=== PATIENT | female | born 1955 | race Two or more races ===

== ENCOUNTER 2024-03-17 23:08 | Emergency (ER) | payer OTHER, MEDICAID ==
[~2024-03-17] VITALS: Ht 152.4 cm; Wt 71.8 kg
[2024-03-17 23:32] VITALS: BP 127/84; PULSE 97; RESP 17; O2SAT 97
[2024-03-18] MEDS: HYDROcodone-ACET 5/325MG TAB PO ONE (02:23)
[2024-03-18] MEDS: ONDANSETRON ODT 4 MG TAB PO ONE (02:23)
== END 2024-03-18 03:18 | disposition home or self-care (01) ==
LOC: ER 23:08
DX: S93.401A Sprain of unspecified ligament of right ankle, initial encounter (principal); S40.012A Contusion of left shoulder, initial encounter; S40.011A Contusion of right shoulder, initial encounter; E11.9 Type 2 diabetes mellitus without complications; I10 Essential (primary) hypertension; Z90.49 Acquired absence of other specified parts of digestive tract; Z88.0 Allergy status to penicillin; W18.09XA Striking against other object with subsequent fall, initial encounter; Y93.89 Activity, other specified; Y92.092 Bedroom in other non-institutional residence as the place of occurrence of the external cause; Y99.8 Other external cause status
CPT/HCPCS: 73610; 99283; Q0162

== ENCOUNTER 2024-06-12 16:44 | Emergency (ER) | payer OTHER, MEDICAID ==
[~2024-06-12] VITALS: Ht 152.4 cm; Wt 71.0 kg
[2024-06-12 17:34] LABS: Urine Bacteria None Seen /hpf (None Seen)
--- NOTE | 2024-06-12 17:46 | DVH ---
EXAM: XY CHEST PORTABLE CLINICAL HISTORY: Shortness a breath TECHNIQUE: Single AP view of the chest WID: COMPARISON: None FINDINGS: Lines and tubes: None Chest: The heart size and pulmonary vasculature is within normal limits. No pleural effusion, pneumothorax, or consolidation. The osseous structures are grossly intact. Multilevel thoracic spondylosis IMPRESSION: No acute cardiopulmonary abnormality.
[2024-06-12 17:58] LABS: Urine Blood Negative /uL (Negative); Urine Clarity Clear (Clear); Urine Color Light-Yellow (Yellow); Urine Hyaline Cast FEW /lpf (0 - 2); Urine Mucus FEW (None Seen); Urine Protein, UAD 1+ (Negative); Urine Specific Gravity 1.028 (1.001-1.035); Urine Urobilinogen Normal (Negative); Urine WBC 7 /hpf (0 - 5); Urine pH 6.5 (5.0-9.0)
[2024-06-12 19:51] LABS: Basophils # (auto) 0.1 10 ^3/uL (0-0.2); Basophils % (auto) 0.9 % (0.0-2.0); Eosinophils # (auto) 0.2 10 ^3/uL (0-0.8); Eosinophils % (auto) 2.3 % (0.0-7.0); Hemoglobin 14.4 g/dL (12.2-16.2); Lymphocytes # (auto) 2.1 10 ^3/uL (0.4-5.4); Lymphocytes % (auto) 25.1 % (10.0-50.0); Mean Corpuscular Hgb Conc. 34.3 g/dL (32.0-36.0); Mean Corpuscular Volume 87.4 fL (80.0-100.0); Monocytes # (auto) 0.5 10 ^3/uL (0-1.3); Monocytes % (auto) 5.9 % (0.0-12.0); Neutrophils # (auto) 5.4 10 ^3/uL (1.6-8.6); Neutrophils % (auto) 65.8 % (37.0-80.0); Nucleated Red Blood Cells % 0.2 %; Platelet Count (auto) 381 10^3/uL (140-450); Red Blood Cells 4.81 10^6/uL (4.0-5.20); Red Cell Distribution Width 13.2 % (11.8-14.3); White Blood Cell 8.3 10^3/uL (4.4-10.8)
[2024-06-12 20:04] LABS: Chloride 104 mmol/L (98-107); Potassium 3.8 mmol/L (3.5-5.1); Sodium 141 mmol/L (136-145)
[2024-06-12 20:05] LABS: Anion Gap 8 (5-15); Calcium 10.8 mg/dL (8.7-10.4); Carbon Dioxide 29 mmol/L (20-31)
[2024-06-12 20:10] LABS: BUN/Creatinine Ratio 24.4 (10.0-20.0); Blood Urea Nitrogen 19 mg/dL (9-23); Glucose 129 mg/dL (74-106)
[2024-06-12 21:50] VITALS: BP 191/101; PULSE 99; RESP 18; O2SAT 99
[2024-06-12] MEDS ORDERED: ZOFR4T PO (21:54)
[2024-06-12] MEDS ORDERED: MECL1TAB42 PO (21:54)
[2024-06-12] MEDS ORDERED: NITR-87 PO (21:54)
--- NOTE | 2024-06-12 21:55 | ED.PDOC ---
History of Present Illness HPI Comments This patient is a pleasant but obese 69-year-old female who arrives to the ED today for evaluation of headache with dizziness and congestion that began several hours ago and has continued. Patient denies any recent travel or new food sources. Patient states the symptoms came on relatively quickly and have been unrelenting. Patient denies any nausea or vomiting. Patient was very mildly tachycardic at arrival. Chief Complaint: Dizziness Time Seen by MD: 17:00 Primary Care Provider: UNKNOWN Reviewed Notes: Nurses Notes Allergies: Coded Allergies: Penicillins (Verified Allergy, Unknown, 03/17/24) Information Source: Patient Mode of Arrival: Ambulatory Severity: Mild Timing: Hours Duration: Since onset Prehospital treatment: None Past Medical History PAST MEDICAL HISTORY: DM, HTN Surgical History: Cholecystectomy TABLE TENDER History: No Pertinent TABLE TENDER History Family History Family History: Unknown Social History Smoker: Non-Smoker Alcohol: Denies ETOH Use Drugs: Denies Drug Use Lives In: Home Constitutional: denies: chills, diaphoresis, fatigue, fever, malaise, sweats, weakness, others EENTM: denies: blurred vision, double vision, ear bleeding, ear discharge, ear drainage, ear pain, ear ringing, eye pain, eye redness, hearing loss, mouth pain, mouth swelling, nasal discharge, nose bleeding, nose congestion, nose pain, photophobia, tearing, throat pain, throat swelling, voice changes, others Respiratory: denies: cough, hemoptysis, orthopnea, SOB at rest, shortness of breath, SOB with excertion, stridor, wheezing, others Cardiovascular: denies: chest pain, dizzy spells, diaphoresis, Dyspnea on exertion, edema, irregular heart beat, left arm pain, lightheadedness, palpitations, PND, syncope, others Gastrointestinal: reports: nausea; denies: abdomen distended, abdominal pain, blood streaked bowels, constipated, diarrhea, dysphagia, difficulty swallowing, hematemesis, melena, poor appetite, poor fluid intake, rectal bleeding, rectal pain, vomiting, others Genitourinary: denies: abnormal vagina bleeding, burning, dyspareunia, dysuria, flank pain, frequency, hematuria, incontinence, pain, , vagina d ischarge, urgency, others Neurological: reports: dizziness, headache Musculoskeletal: denies: back pain, gout, joint pain, joint swelling, muscle pain, muscle stiffness, neck pain, others Integumetry: denies: bruises, change in color, change in hair/nails, dryness, laceration, lesions, lumps, rash, wounds, others Allergic/Immunocompromised: denies: Difficulty Healing, Frequent Infections, Hives, Itching, others Hematologic/Lymphatic: denies: anemia, blood clots, easy bleeding, easy bruising, swollen glands, others Endocrine: denies: excessive hunger, excessive sweating, excessive thirst, excessive urination, flushing, intolerance to cold, intolerance to heat, unexplained weight gain, unexplained weight loss, others Psychiatric: denies: anxiety, bipolar disorder, depression, hopeless, panic disorder, schizophrenia, sleepless, suicidal, others Physical Exam General Appearance: Moderate Distress (Patient is a [id number] distress at time of evaluation. Patient does not look toxic.), Normal HEENT: Head (Unremarkable cranial evaluation. No signs of trauma. No skull depressions or deformities.), Normal ENT Inspection, Pharynx Normal, TMs Normal Neck: Full Range of Motion, Non-Tender, Normal, Normal Inspection Respiratory: Chest Non-Tender, Lungs Clear, No Accessory Muscle Use, No Respiratory Distress, Normal Breath Sounds Cardiovascular: No Edema, No JVD, No Murmur, No Gallop, Normal Peripheral Pulses, Regular Rate/Rhythm Breast Exam: Deferred Gastrointestinal: No Organomegaly, Non Tender, No Pulsatile Mass, Normal Bowel Sounds, Soft Genitalia: Deferred Pelvic: Deferred Rectal: Deferred Extremities: No calf tenderness, Normal capillary refill, Normal inspection, Normal range of motion, Non-tender, No pedal edema Neurologic: Alert, layout designer II-XII nml as Tested, No Motor Deficits, Normal Affect, Normal Mood, No Sensory Deficits Cerebellar Function: Normal Reflexes: Normal Skin: Dry, Normal Color, Warm Lymphatic: No Adenopathy Was a procedure done? Was a procedure done?: No Differential Dx Considerations may include: Acute coronary syndrome, electrolyte abnormality, UTI, viral illness, inner ear concerns X-Ray, Labs, Meds, VS Vital Signs Date Time Temp Pulse Resp B/P (MAP) Pulse Ox O2 Delivery O2 Flow Rate FiO2 06/12/24 17:00 97.8 103 19 131/92 (105) 99 06/12/24 16:59 101 Lab Test 06/12/24 19:33 06/12/24 17:02 06/12/24 16:54 Range/Units White Blood Count 8.3 4.4-10.8 10^3/uL Red Blood Count 4.81 4.0-5.20 10^6/uL Hemoglobin 14.4 12.2-16.2 g/dL Hematocrit 42.0 36.0-46.0 % Mean Corpuscular Volume 87.4 80.0-100.0 fL Mean Corpuscular Hemoglobin 30.0 28.0-32.0 pg Mean Corpuscular Hemoglobin Concent 34.3 32.0-36.0 g/dL Red Cell Distribution Width 13.2 11.8-14.3 % Platelet Count 381 140-450 10^3/uL Mean Platelet Volume 7.9 6.9-10.8 fL Neutrophils (%) (Auto) 65.8 37.0-80.0 % Lymphocytes (%) (Auto) 25.1 10.0-50.0 % Monocytes (%) (Auto) 5.9 0.0-12.0 % Eosinophils (%) (Auto) 2.3 0.0-7.0 % Basophils (%) (Auto) 0.9 0.0-2.0 % Neutrophils # (Auto) 5.4 1.6-8.6 10 ^3/uL Lymphocytes # (Auto) 2.1 0.4-5.4 10 ^3/uL Monocytes # (Auto) 0.5 0-1.3 10 ^3/uL Eosinophils # (Auto) 0.2 0-0.8 10 ^3/uL Basophils # (Auto) 0.1 0-0.2 10 ^3/uL Nucleated Red Blood Cells 0.2 % Sodium Level 141 136-145 mmol/L Potassium Level 3.8 3.5-5.1 mmol/L Chloride Level 104 98-107 mmol/L Carbon Dioxide Level 29 20-31 mmol/L Anion Gap 8 5-15 Blood Urea Nitrogen 19 9-23 mg/dL Creatinine 0.78 0.550-1.02 mg/dL Glomerular Filtration Rate Calc 82 >90 mL/min BUN/Creatinine Ratio 24.4 H 10.0-20.0 Serum Glucose 129 H 74-106 mg/dL Calcium Level 10.8 H 8.7-10.4 mg/dL Urine Color Light-yellow Yellow Urine Clarity Clear Clear Urine pH 6.5 5.0-9.0 Urine Specific [place] 1.028 1.001-1.035 Urine Protein 1+ H Negative Urine Ketones 1+ H Negative Urine Blood Negative Negative /uL Urine Nitrite Negative Negative Urine Bilirubin Negative Negative Urine Urobilinogen Normal Negative mg/dL Urine Leukocyte Esterase 2+ Negative /uL Urine RBC 1 0 - 4 /hpf Urine WBC 7 0 - 5 /hpf Urine Squamous Epithelial Cells Few <5 /hpf Urine Bacteria None seen None Seen /hpf Urine Hyaline Casts Few 0 - 2 /lpf Urine Mucus Few None Seen Urine Glucose Normal Normal mg/dL POC Glucose 129 H 70-106 mg/dl X-Ray, Labs, Meds, VS Comment All studies performed in the ED were evaluated by me personally. EKG reveals sinus tachycardia with nonspecific repolarization abnormalities in the lateral leads. Rate of 101 SD interval of 145 and a QT interval of 344. Relatively unremarkable EKG. Serum laboratories were unremarkable for any systemic concerns, but the patient does have a urinary tract infection. Patient received 1st dose of antibiotics prior to discharge. Advised patient utilize antibiotics as directed until completion as well as additional medication as needed. Time of 1ST Reevaluation: 21:52 Reevaluation 1ST: Improved Consultation: PCP Patient Education/Counseling: Diagnosis, Treatment Family Education/Counseling: Diagnosis, Treatment Departure 1 Departure Time of Disposition: 21:53 Impression: Primary Impression: UTI (urinary tract infection) Disposition: HOME / SELF CARE / HOMELESS Condition: Stable Additional Instructions: Advised patient utilize antibiotics as directed until completion as well as additional medication as needed. Patient should practice good hydration and healthy nutrition throughout illness event. e-Prescriptions Meclizine HCl (Meclizine 25) 25 Mg Tab 25 MG PO Q8HP PRN, #10 TAB Prov: PHIL SU PAC 06/12/24 Ondansetron Odt 4MG Tab (ZOFRAN PO) 4 Mg Tb 4 MG PO Q6HP PRN, #10 TAB ODT TAB-DISSOLVE IN MOUTH, THEN SWALLOW Prov: PHIL SU PAC 06/12/24 Nitrofurantoin Monohydrate Mac (Macrobid) 100 Mg Cap 100 MG PO BID for 5 Days, #10 CAP Prov: PHIL SU PAC 06/12/24 Discharged With: Self, Friend Critical Care Note Critical Care Time?: No Stability Stability form required: No Heart Score Heart Score: Heart Score Response (Comments) Value History Slightly Suspicious 0 EKG Repolarization Disturb 1 Age >65 2 Risk Factors 1 or 2 risk factors 1 Troponin N/A 0 Total 4 PHIL SU PAC Jun 12, 2024 21:54
[2024-06-12 23:01] LABS: COVID19 ANTIGEN SOFIA FIA NEGATIVE (NEGATIVE); Rapid Influenza A Negative (Negative); Rapid Influenza B Negative (Negative)
[2024-06-12] MEDS: ONDANSETRON ODT 4 MG TAB PO ONE (23:26)
[2024-06-12] MEDS: MECLIZINE HCL 25 MG TAB PO ONE (23:26)
[2024-06-12] MEDS: NITROFURANTOIN 100 mg CAP PO ONE (23:26)
--- NOTE | 2024-06-13 11:56 | ECG ---
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
== END 2024-06-12 23:26 | disposition home or self-care (01) ==
LOC: ER 16:44
DX: N39.0 Urinary tract infection, site not specified (principal); R42 Dizziness and giddiness; R51.9 Headache, unspecified; E11.9 Type 2 diabetes mellitus without complications; I10 Essential (primary) hypertension; Z88.0 Allergy status to penicillin; Z90.49 Acquired absence of other specified parts of digestive tract; Z20.822 Contact with and (suspected) exposure to COVID-19
CPT/HCPCS: 36415; 71045; 80048; 81001; 82962; 85025; 87426; 87804; 93005; 99285; J8597; Q0162

== ENCOUNTER 2024-07-05 21:11 | Inpatient (IN) | payer OTHER, MEDICAID ==
[~2024-07-05] VITALS: Ht 152.4 cm; Wt 67.6 kg
[~2024-07-05 21:11] MED LIST: MECL1TAB42 PO; NITR-87 PO; ZOFR4T PO
--- NOTE | 2024-07-05 21:29 | ED.PDOC ---
HPI Comments 69-year-old female who came to ER due to chest pains. She has history of hypertension and diabetes. States for the past few hours, she has been experiencing stent, sharp, substernal chest pains, non provoked, 9/10 intensity, nonradiating, worsens with movements and associated with nausea and vomited twice. Denies any prior history of similar chest pains. Chief Complaint: Chest Pain Time Seen by MD: 21:29 Primary Care Provider: UNKNOWN Reviewed Notes: Nurses Notes Allergies: Coded Allergies: Penicillins (Verified Allergy, Unknown, 03/17/24) Home Meds Active Scripts Meclizine HCl (Meclizine 25) 25 Mg Tab, 25 MG PO Q8HP PRN, #10 TAB Prov:PHIL SU PAC 06/12/24 Ondansetron Odt 4MG Tab (ZOFRAN PO) 4 Mg Tb, 4 MG PO Q6HP PRN, #10 TAB ODT TAB-DISSOLVE IN MOUTH, THEN SWALLOW Prov:PHIL SU PAC 06/12/24 Nitrofurantoin Monohydrate Mac (Macrobid) 100 Mg Cap, 100 MG PO BID for 5 Days, #10 CAP Prov:PHIL SU PAC 06/12/24 Information Source: Patient Mode of Arrival: Ambulatory Severity: Moderate Timing: Hours Duration: Since onset Prehospital treatment: None Location: Substernal Radiation: No Radiation Quality: Sharp Onset: At Rest Cardiac Risk Factors: HTN, Diabetes PE Risk Factors: None History of: None Modifying Factors: Nothing Associated Signs and Symptoms: N/V Past Medical History PAST MEDICAL HISTORY: DM, HTN Past Medical History (Other): Chronic pain syndrome Surgical History: Cholecystectomy PATENT ENGINEER History: No Pertinent PATENT ENGINEER History Family History Family History: Reviewed,noncontributory to illness Social History Smoker: Non-Smoker Alcohol: Denies ETOH Use Drugs: Denies Drug Use Lives In: Home Constitutional: denies: chills, diaphoresis, fatigue, fever, malaise, sweats, weakness, others EENTM: denies: blurred vision, double vision, ear bleeding, ear discharge, ear drainage, ear pain, ear ringing, eye pain, eye redness, hearing loss, mouth pain, mouth swelling, nasal discharge, nose bleeding, nose congestion, nose pain, photophobia, tearing, throat pain, throat swelling, voice changes, others Respiratory: denies: cough, hemoptysis, orthopnea, SOB at rest, shortness of breath, SOB with excertion, stridor, wheezing, others Cardiovascular: reports: chest pain; denies: dizzy spells, diaphoresis, Dyspnea on exertion, edema, irregular heart beat, left arm pain, lightheadedness, palpitations, PND, syncope, others Gastrointestinal: reports: nausea, vomiting; denies: abdomen distended, abdominal pain, blood streaked bowels, constipated, diarrhea, dysphagia, diffic ulty swallowing, hematemesis, melena, poor appetite, poor fluid intake, rectal bleeding, rectal pain, others Genitourinary: denies: abnormal vagina bleeding, burning, dyspareunia, dysuria, flank pain, frequency, hematuria, incontinence, pain, , vagina discharge, urgency, others Neurological: denies: dizziness, fainting, headache, left sided numbness, left sided weakness, numbness, paresthesia, pre-existing deficit, right sided numbness, right sided weakness, seizure, speech problems, tingling, tremors, weakness, others Musculoskeletal: denies: back pain, gout, joint pain, joint swelling, muscle pain, muscle stiffness, neck pain, others Integumetry: denies: bruises, change in color, change in hair/nails, dryness, laceration, lesions, lumps, rash, wounds, others Allergic/Immunocompromised: denies: Difficulty Healing, Frequent Infections, Hives, Itching, others Hematologic/Lymphatic: denies: anemia, blood clots, easy bleeding, easy bruising, swollen glands, others Endocrine: denies: excessive hunger, excessive sweating, excessive thirst, excessive urination, flushing, intolerance to cold, intolerance to heat, unexplained weight gain, unexplained weight loss, others Psychiatric: denies: anxiety, bipolar disorder, depression, hopeless, panic disorder, schizophrenia, sleepless, suicidal, others Physical Exam General Appearance: No Apparent Distress, Normal HEENT: Normal ENT Inspection, Pharynx Normal, TMs Normal Neck: Full Range of Motion, Non-Tender, Normal, Normal Inspection Respiratory: Chest Non-Tender, Lungs Clear, No Accessory Muscle Use, No Respiratory Distress, Normal Breath Sounds Cardiovascular: No Edema, No JVD, No Murmur, No Gallop, Normal Peripheral Pulses, Regular Rate/Rhythm Breast Exam: Deferred Gastrointestinal: No Organomegaly, Non Tender, No Pulsatile Mass, Normal Bowel Sounds, Soft Genitalia: Deferred Pelvic: Deferred Rectal: Deferred Extremities: No calf tenderness, Normal capillary refill, Normal inspection, Normal range of motion, Non-tender, No pedal edema Musculoskeletal : Apperance: Normal Neurologic: Alert, health plan advisor II-XII nml as Tested, No Motor Deficits, Normal Affect, Normal Mood, No Sensory Deficits Cerebellar Function: Normal Reflexes: Normal Skin: Dry, Normal Color, Warm Lymphatic: No Adenopathy Was a procedure done? Was a procedure done?: No CP Differential Dx Differential Diagnosis: Angina, Anxiety / Panic Attack Differential Diagnosis: Angina, Chest Wall Pain, Costochondritis, Esophageal reflux/spasm, Gastritis, Myocardial Infarction, Pneumonia X-Ray, Labs, Meds, VS Vital Signs Date Time Temp Pulse Resp B/P (MAP) Pulse Ox O2 Delivery O2 Flow Rate FiO2 07/05/24 21:54 73 07/05/24 21:26 98.7 102 18 138/99 (112) 98 07/05/24 21:16 98 Lab Test 07/05/24 22:41 Range/Units White Blood Count 10.3 4.4-10.8 10^3/uL Red Blood Count 4.76 4.0-5.20 10^6/uL Hemoglobin 14.5 12.2-16.2 g/dL Hematocrit 41.3 36.0-46.0 % Mean Corpuscular Volume 86.8 80.0-100.0 fL Mean Corpuscular Hemoglobin 30.6 28.0-32.0 pg Mean Corpuscular Hemoglobin Concent 35.2 32.0-36.0 g/dL Red Cell Distribution Width 13.5 11.8-14.3 % Platelet Count 230 140-450 10^3/uL Mean Platelet Volume 8.4 6.9-10.8 fL Neutrophils (%) (Auto) 75.5 37.0-80.0 % Lymphocytes (%) (Auto) 17.3 10.0-50.0 % Monocytes (%) (Auto) 6.1 0.0-12.0 % Eosinophils (%) (Auto) 0.2 0.0-7.0 % Basophils (%) (Auto) 0.9 0.0-2.0 % Neutrophils # (Auto) 7.8 1.6-8.6 10 ^3/uL Lymphocytes # (Auto) 1.8 0.4-5.4 10 ^3/uL Monocytes # (Auto) 0.6 0-1.3 10 ^3/uL Eosinophils # (Auto) 0 0-0.8 10 ^3/uL Basophils # (Auto) 0.1 0-0.2 10 ^3/uL Nucleated Red Blood Cells 0.1 % Sodium Level 138 136-145 mmol/L Potassium Level 3.3 L 3.5-5.1 mmol/L Chloride Level 103 98-107 mmol/L Carbon Dioxide Level 22 20-31 mmol/L Anion Gap 13 5-15 Blood Urea Nitrogen 12 9-23 mg/dL Creatinine 0.68 0.550-1.02 mg/dL Glomerular Filtration Rate Calc 94 >90 mL/min BUN/Creatinine Ratio 17.6 10.0-20.0 Serum Glucose 159 H 74-106 mg/dL Calcium Level 9.9 8.7-10.4 mg/dL Total Bilirubin 1.0 0.2-1.0 mg/dL Aspartate Amino Transferase (AST) 68 H 13-40 U/L Alanine Aminotransferase (ALT) 29 7-40 U/L Alkaline Phosphatase 74 46-116 U/L Troponin I High Sensitivity 6450 *H </=34 ng/L B-Type Natriuretic Peptide 312.34 0-100 pg/mL Total Protein 6.9 5.7-8.2 g/dL Albumin 4.5 3.2-4.8 g/dL Time of 1ST Reevaluation: 21:26 Reevaluation 1ST: Unchanged Patient Education/Counseling: Diagnosis, Treatment Family Education/Counseling: No Family Present Departure 1 Departure Time of Disposition: 23:19 (Patient presented with chest pain that was concerning for possible STEMI, ACS, PE, Pneumonia, Muscle Strain, COPD, Dissection. Data: 1. I ordered and reviewed the result of at least 3 labs including a CBC, BMP, and Troponin. 2. I independently interpreted the following tests: EKG which shows likely a recent [place] and Chest X-ray which shows benign chest.3. I discussed the case with Dr. Dior who admission medicine further workup and he will consult.Risk:This patient has a high risk of morbidity due to further diagnostic testing or treatment and may suffer from an acute cardiac or respiratory disorder. Workup reveals NSTEMI and patient should be admitted for further workup and possible expert consultation. ) Impression: Primary Impression: NSTEMI (non-ST elevated myocardial infarction) Additional Impression: Acute chest pain Disposition: 09 ADMITTED INPATIENT Admit to: Tele Condition: Guarded Critical Care Note Critical Care Time?: Yes Critical care comment: Acute chest pain Authorized and Performed by: Maral Poole MD Total critical care time: Approximately 38 minutes Due to a high probability of clinically significant, life threatening deterioration, the patient required my highest level of preparedness to intervene emergently and I personally spent this critical care time directly and personally managing the patient. This critical care time included obtaining a history; examining the patient; pulse oximetry; ordering and review of studies; arranging urgent treatment with development of a management plan; evaluation of patient's response to treatment; frequent reassessment; and, discussions with other providers. This critical care time was performed to assess and manage the high probability of imminent, life-threatening deterioration that could result in multi-organ failure. It was exclusive of separately billable procedures and treating other patients and teaching time. Please see my other sections and the rest of the note for further information on patient assessment and treatment. Stability Stability form required: No Heart Score Heart Score: Heart Score Response (Comments) Value History N/A 0 EKG N/A 0 Age N/A 0 Risk Factors N/A 0 Troponin N/A 0 Total 0 I personally scribed for MARAL POOLE MD ([email or web address]) on 07/05/24 at 21:29. Electronically submitted by Ankur Mirza ([facility]). MARAL POOLE MD Jul 05, 2024 21:29
--- NOTE | 2024-07-05 21:46 | DVH ---
CHEST RADIOGRAPH Indication: chest pain Technique: Single frontal view of the chest was obtained Comparison: XY CHEST PORTABLE on DOS: 06/12/24 FINDINGS: Lines and Tubes: None Lungs: No focal consolidation. Pleura: No effusion. No pneumothorax. Cardiomediastinal contours: Unremarkable Bones: No acute osseous abnormality. IMPRESSION: No acute cardiopulmonary disease.
[2024-07-05 22:52] LABS: Basophils # (auto) 0.1 10 ^3/uL (0-0.2); Basophils % (auto) 0.9 % (0.0-2.0); Eosinophils # (auto) 0 10 ^3/uL (0-0.8); Eosinophils % (auto) 0.2 % (0.0-7.0); Hematocrit 41.3 % (36.0-46.0); Hemoglobin 14.5 g/dL (12.2-16.2); Lymphocytes # (auto) 1.8 10 ^3/uL (0.4-5.4); Lymphocytes % (auto) 17.3 % (10.0-50.0); Mean Corpuscular Hemoglobin 30.6 pg (28.0-32.0); Mean Corpuscular Hgb Conc. 35.2 g/dL (32.0-36.0); Mean Corpuscular Volume 86.8 fL (80.0-100.0); Monocytes # (auto) 0.6 10 ^3/uL (0-1.3); Monocytes % (auto) 6.1 % (0.0-12.0); Neutrophils # (auto) 7.8 10 ^3/uL (1.6-8.6); Neutrophils % (auto) 75.5 % (37.0-80.0); Nucleated Red Blood Cells % 0.1 %; Platelet Count (auto) 230 10^3/uL (140-450); Red Blood Cells 4.76 10^6/uL (4.0-5.20); Red Cell Distribution Width 13.5 % (11.8-14.3); White Blood Cell 10.3 10^3/uL (4.4-10.8)
[2024-07-05 23:12] LABS: Alanine Aminotransferase 29 U/L (7-40); Albumin 4.5 g/dL (3.2-4.8); Alkaline Phosphatase 74 U/L (46-116); Anion Gap 13 (5-15); BUN/Creatinine Ratio 17.6 (10.0-20.0); Blood Urea Nitrogen 12 mg/dL (9-23); Calcium 9.9 mg/dL (8.7-10.4); Carbon Dioxide 22 mmol/L (20-31); Chloride 103 mmol/L (98-107); Sodium 138 mmol/L (136-145)
[2024-07-05 23:13] LABS: Aspartate Aminotransferase 68 U/L (13-40); Glucose 159 mg/dL (74-106); Potassium 3.3 mmol/L (3.5-5.1); Total Protein 6.9 g/dL (5.7-8.2)
[2024-07-05] MEDS: ASPirin 81 mg TAB PO ONE (23:34)
[2024-07-05 23:44] LABS: INR 1.04 (0.9-1.15); Partial Thromboplastin Time 26.1 SEC (24.5-34.5)
[2024-07-06] VITALS (8 sets, daily range): BP systolic 119–145; BP diastolic 71–78; PULSE 82–103; RESP 17–86; TEMP 97.1–98.5; O2SAT 96–98
[2024-07-06 00:12] LABS: Basophils # (auto) 0.1 10 ^3/uL (0-0.2); Basophils % (auto) 0.7 % (0.0-2.0); Eosinophils # (auto) 0 10 ^3/uL (0-0.8); Eosinophils % (auto) 0.1 % (0.0-7.0); Hematocrit 40.1 % (36.0-46.0); Hemoglobin 14.1 g/dL (12.2-16.2); Lymphocytes # (auto) 2.2 10 ^3/uL (0.4-5.4); Lymphocytes % (auto) 22.9 % (10.0-50.0); Mean Corpuscular Hemoglobin 30.4 pg (28.0-32.0); Mean Corpuscular Hgb Conc. 35.1 g/dL (32.0-36.0); Mean Corpuscular Volume 86.6 fL (80.0-100.0); Monocytes # (auto) 0.5 10 ^3/uL (0-1.3); Monocytes % (auto) 5.7 % (0.0-12.0); Neutrophils # (auto) 6.7 10 ^3/uL (1.6-8.6); Neutrophils % (auto) 70.6 % (37.0-80.0); Platelet Count (auto) 215 10^3/uL (140-450); Red Blood Cells 4.63 10^6/uL (4.0-5.20); Red Cell Distribution Width 13.4 % (11.8-14.3); White Blood Cell 9.6 10^3/uL (4.4-10.8)
[2024-07-06] MEDS: HEPARIN DRIP/D5W 100UNITS/ML 250 ML IV SCH ×3 (00:20→16:54)
[2024-07-06] MEDS: HEPARIN SODIUM (PORCINE) 5000 UNITS/ML 1ML VIAL IV ONE ×2 (00:24→10:27)
[2024-07-06] MEDS ORDERED: DEXTROSE (50%) 50ML SYRG IV PRN (01:45)
[2024-07-06] MEDS ORDERED: hydrALAZINE HCL 20 MG/ML VL IV PRN (01:45)
[2024-07-06] MEDS ORDERED: ACETAMINOPHEN 325 MG TAB PO PRN (01:45)
--- NOTE | 2024-07-06 01:53 | DVHHP2 ---
History of Present Illness Reason for Visit: NSTEMI (non-ST elevated myocardial infarction) History of Present Illness The patient is a 69-year-old female with past medical history of hypertension, DM, and chronic pain syndrome who presented to [facility] ED with complaint of chest pain. Patient reports symptoms progressively get worse with substernal chest pain, nonradiating sharp in nature, worse with movement, rating 9/10 numeric scale, getting worse today that prompted this visit. Patient was seen and evaluated in the ED, laboratory data shows WBC 9.6, platelets 215, sodium 138, potassium 3.3, BUN 12, creatinine 0.68, glucose 159, BNP 312.34, troponin 6450. Chest x-ray show no acute cardiopulmonary disease. Patient was started on heparin drip, please see medication orders section in the computer. On my assessment, patient denied chest pain at this moment, no headache, no dizziness, no shortness of breath, no diarrhea, no nausea, no vomiting, no fever, no chills. Patient was admitted for further evaluation and medical management. Past Medical History DM, HTN, Chronic pain syndrome Past Surgical History Cholecystectomy Family History Reviewed, noncontributory to the management of this case. Past Social History The patient lives at home, denies smoking, alcohol or illicit drugs abuse. Review of Systems Constitutional: Yes: Weakness; No: Fever, Chills, Sweats, Malaise, Other Eyes: No: Pain, Vision change, Conjunctivae inflammation, Eyelid inflammation, Other, Redness ENT: No: Ear pain, Ear discharge, Nose pain, Nose discharge, Nose congestion, Mouth pain, Mouth swelling, Throat pain, Throat swelling, Other Respiratory: No: Cough, Dry, Shortness of breath, SOB with excertion, Wheezing, Hemoptysis, Pleuritic Pain, Sputum, Wheezing, Other Cardiovascular: Chest Pain; No: Palpitations, Orthopnea, Paroxysmal Noc. Dyspnea, Edema, Lt Headedness, Other Gastrointestinal: Nausea, Vomiting; No: Abdominal Pain, Diarrhea, Constipation, Melena, Hematochezia, Other Genitourinary: No Dysuria, No Frequency, No Incontinence, No Hematuria, No Retention, No Other Musculoskeletal: No: other, neck pain, shoulder pain, arm pain, back pain, hand pain, leg pain, foot pain Skin: No: Rash, Lesions, Jaundice, Bruising, Other Neurological: No: Weakness, Numbness, Incoordination, Change in speech, Confusion, Seizures, Other Allergies: Coded Allergies: Penicillins (Verified Allergy, Unknown, 03/17/24) Medications Current Medications Medications Dose Ordered Sig/Missy Route Start Time Stop Time Status Last Admin Dose Admin Heparin Sodium/ Dextrose 250 ml @ 8 mls/hr Q24H IV 07/05/24 23:30 07/06/24 00:20 8 MLS/HR Exam Vital Signs Vital Signs Date Time Temp Pulse Resp B/P (MAP) Pulse Ox O2 Delivery O2 Flow Rate FiO2 07/06/24 00:52 68 07/06/24 00:46 98.7 24 165/90 (115) 96 98.7 07/05/24 23:25 Room Air* 0 21 General Appearance: Alert, Oriented X3, Cooperative, No acute distress HEENT: Atraumatic, PERRLA, EOMI, Mucous membr. moist/pink Respiratory: Clear to auscultation, Normal air movement Cardiovascular: Regular rate, Normal S1, Normal S2, No murmurs Abdominal: Normal bowel sounds, Soft, No tenderness, No hepatospenomegaly, No masses Extremities: No clubbing, No cyanosis, No edema, Normal pulses, No tenderness/swelling Skin: No rashes, No breakdown, No significant lesion Neuro: Normal speech, Normal tone, Sensation intact, Cranial nerves 3-12 NL, Reflexes 2+, Other (Generalized weakness) Psych/Mental Status: Mental status NL, Mood NL Labs/Xrays Labs Test 07/06/24 00:03 07/05/24 22:41 Range/Units White Blood Count 9.6 4.4-10.8 10^3/uL Red Blood Count 4.63 4.0-5.20 10^6/uL Hemoglobin 14.1 12.2-16.2 g/dL Hematocrit 40.1 36.0-46.0 % Mean Corpuscular Volume 86.6 80.0-100.0 fL Mean Corpuscular Hemoglobin 30.4 28.0-32.0 pg Mean Corpuscular Hemoglobin Concent 35.1 32.0-36.0 g/dL Red Cell Distribution Width 13.4 11.8-14.3 % Platelet Count 215 140-450 10^3/uL Mean Platelet Volume 8.4 6.9-10.8 fL Neutrophils (%) (Auto) 70.6 37.0-80.0 % Lymphocytes (%) (Auto) 22.9 10.0-50.0 % Monocytes (%) (Auto) 5.7 0.0-12.0 % Eosinophils (%) (Auto) 0.1 0.0-7.0 % Basophils (%) (Auto) 0.7 0.0-2.0 % Neutrophils # (Auto) 6.7 1.6-8.6 10 ^3/uL Lymphocytes # (Auto) 2.2 0.4-5.4 10 ^3/uL Monocytes # (Auto) 0.5 0-1.3 10 ^3/uL Eosinophils # (Auto) 0 0-0.8 10 ^3/uL Basophils # (Auto) 0.1 0-0.2 10 ^3/uL Nucleated Red Blood Cells 0.0 % Troponin I High Sensitivity 8460 *H </=34 ng/L Prothrombin Time 11.0 9.3-11.8 sec Prothrombin Time INR 1.04 0.9-1.15 Activated Partial Thromboplast Time 26.1 24.5-34.5 SEC Sodium Level 138 136-145 mmol/L Potassium Level 3.3 L 3.5-5.1 mmol/L Chloride Level 103 98-107 mmol/L Carbon Dioxide Level 22 20-31 mmol/L Anion Gap 13 5-15 Blood Urea Nitrogen 12 9-23 mg/dL Creatinine 0.68 0.550-1.02 mg/dL Glomerular Filtration Rate Calc 94 >90 mL/min BUN/Creatinine Ratio 17.6 10.0-20.0 Serum Glucose 159 H 74-106 mg/dL Calcium Level 9.9 8.7-10.4 mg/dL Total Bilirubin 1.0 0.2-1.0 mg/dL Aspartate Amino Transferase (AST) 68 H 13-40 U/L Alanine Aminotransferase (ALT) 29 7-40 U/L Alkaline Phosphatase 74 46-116 U/L B-Type Natriuretic Peptide 312.34 0-100 pg/mL Total Protein 6.9 5.7-8.2 g/dL Albumin 4.5 3.2-4.8 g/dL PATIENT: ZOË SANDS TODDACCT: [id number] UNIT: [id number] : 1955 LOC: ER ROOM / BED: / AGE / SEX: 69 / F ADM STATUS: REG ER SERVICE 21 ORDERING PHYSICIAN: MARAL POOLE MD PROCEDURE(s): CXRP - CHEST PORTABLE REASON: chest pain ORDER NUMBER(s): [id number], ACCESSION NUMBER(s): [id number] CHEST RADIOGRAPH Indication: chest pain Technique: Single frontal view of the chest was obtained Comparison: XY CHEST PORTABLE on DOS: 06/12/24 FINDINGS: Lines and Tubes: None Lungs: No focal consolidation. Pleura: No effusion. No pneumothorax. Cardiomediastinal contours: Unremarkable Bones: No acute osseous abnormality. IMPRESSION: No acute cardiopulmonary disease. Assessment/Plan Assessment/Plan Acute chest pain Generalized weakness Hypokalemia Elevated brain natriuretic peptide level NSTEMI (non-ST elevated myocardial infarction) Plan 1. Admit to telemetry unit 2. Breathing treatment 3. Pain control management 4. Management of fluids and electrolytes 5. Consultation for cardiology 6. Diagnostic tests chest x-ray 7. DVT prophylaxis-on heparin drip 8. Repeat labs CBC, CMP in a.m. 9. Continue with current medical management 10. Treatment plan discussed with patient and RN. Patient verbalized understanding. Plan discussed with: Patient, Other (RN) Problem List: (1) Acute chest pain (2) Hypokalemia (3) Generalized weakness (4) Elevated brain natriuretic peptide (BNP) level (5) NSTEMI (non-ST elevated myocardial infarction) Date of Service: Jul 06, 2024 Billing Provider: CATHERINE TAPIA DNP Common Visit Codes: [id number] INP/OBS CARE (HIGH) CATHERINE TAPIA DNP Jul 06, 2024 01:53
[2024-07-06] MEDS: POTASSIUM CHL 20 Meq TABLET PO ONE (02:33)
--- NOTE | 2024-07-06 02:38 | ECG ---
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
--- NOTE | 2024-07-06 02:43 | ECG ---
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
[2024-07-06] MEDS: ONDANSETRON HCL 4 MG/2 ML VIAL IV PRN (04:01)
[2024-07-06] MEDS: MORPHINE SULFATE INJ 2 MG/ml SYRG IV PRN (04:02)
[2024-07-06] MEDS: SODIUM CHLOR 0.9% PF (SALINE LOCK) 10ML VIAL/SYR IV SCH (06:33)
[2024-07-06] MEDS: ACCU-CHEK COMFORT CURVE STRIP VI SCH (06:33)
[2024-07-06] MEDS: InsuLIN REG 1unit/0.01ml Soln (100units/ml) SC SCH ×2 (06:33→21:12)
[2024-07-06 06:34] LABS: Urine Bacteria None Seen /hpf (None Seen)
[2024-07-06 06:37] LABS: Basophils # (auto) 0 10 ^3/uL (0-0.2); Basophils % (auto) 0.6 % (0.0-2.0); Eosinophils # (auto) 0 10 ^3/uL (0-0.8); Eosinophils % (auto) 0.4 % (0.0-7.0); Hematocrit 41.8 % (36.0-46.0); Hemoglobin 14.9 g/dL (12.2-16.2); Lymphocytes # (auto) 2.8 10 ^3/uL (0.4-5.4); Lymphocytes % (auto) 33.6 % (10.0-50.0); Mean Corpuscular Hemoglobin 30.8 pg (28.0-32.0); Mean Corpuscular Hgb Conc. 35.7 g/dL (32.0-36.0); Mean Corpuscular Volume 86.3 fL (80.0-100.0); Monocytes # (auto) 0.5 10 ^3/uL (0-1.3); Monocytes % (auto) 5.5 % (0.0-12.0); Neutrophils # (auto) 4.9 10 ^3/uL (1.6-8.6); Neutrophils % (auto) 59.9 % (37.0-80.0); Nucleated Red Blood Cells % 0.2 %; Platelet Count (auto) 246 10^3/uL (140-450); Red Blood Cells 4.84 10^6/uL (4.0-5.20); Red Cell Distribution Width 13.7 % (11.8-14.3); White Blood Cell 8.2 10^3/uL (4.4-10.8)
[2024-07-06 06:53] LABS: INR 1.05 (0.9-1.15); Partial Thromboplastin Time 27.9 SEC (24.5-34.5); Prothrombin Time 11.1 sec (9.3-11.8)
[2024-07-06 06:56] LABS: Urine Blood Negative /uL (Negative); Urine Clarity Clear (Clear); Urine Color Light-Yellow (Yellow); Urine Mucus FEW (None Seen); Urine Protein, UAD Negative (Negative); Urine Specific Gravity 1.015 (1.001-1.035); Urine Urobilinogen 2 mg/dL (Negative); Urine WBC 1 /hpf (0 - 5)
[2024-07-06 06:57] LABS: Alkaline Phosphatase 79 U/L (46-116); Anion Gap 12 (5-15); BUN/Creatinine Ratio 15.9 (10.0-20.0); Blood Urea Nitrogen 11 mg/dL (9-23); Carbon Dioxide 23 mmol/L (20-31); Chloride 103 mmol/L (98-107); Potassium 3.7 mmol/L (3.5-5.1); Sodium 138 mmol/L (136-145)
[2024-07-06 06:58] LABS: Albumin 4.4 g/dL (3.2-4.8); Total Protein 6.9 g/dL (5.7-8.2)
[2024-07-06 07:16] LABS: Alanine Aminotransferase 43 U/L (7-40); Aspartate Aminotransferase 150 U/L (13-40); Bilirubin, Total 1.2 mg/dL (0.2-1.0); Glucose 137 mg/dL (74-106)
--- NOTE | 2024-07-06 09:05 | DVHINCON2 ---
Date of service: Jul 06, 2024 History of Present Illness 69 yo F with hx of DM, obesity admitted for chest pain and NSTEMI. ecg showed TWI inferiorly. i was called initially for code stemi and called off. pt ahs ruled in for troponin and has minimal to no chest pain now. pt had some tightness on admit but resolved. pt seen with RN and very comfortable. Past Medical History reviewed Allergies: Coded Allergies: Penicillins (Verified Allergy, Unknown, 03/17/24) Home Meds Active Scripts Meclizine HCl (Meclizine 25) 25 Mg Tab, 25 MG PO Q8HP PRN, #10 TAB Prov:PHIL SU PAC 06/12/24 Ondansetron Odt 4MG Tab (ZOFRAN PO) 4 Mg Tb, 4 MG PO Q6HP PRN, #10 TAB ODT TAB-DISSOLVE IN MOUTH, THEN SWALLOW Prov:PHIL SU PAC 06/12/24 Nitrofurantoin Monohydrate Mac (Macrobid) 100 Mg Cap, 100 MG PO BID for 5 Days, #10 CAP Prov:PHIL SU PAC 06/12/24 Current Medications Current Medications Medications (Trade) Dose Ordered Sig/Missy Route PRN Reason Start Time Stop Time Status Last Admin Heparin Sodium/ Dextrose 250 ml @ 8 mls/hr Q24H IV 07/05/24 23:30 07/06/24 08:49 DC 07/06/24 00:20 Hydralazine HCl (Apresoline Injection) 10 mg Q6HP PRN IV SBP>150 07/06/24 01:45 Amlodipine Besylate (Norvasc Tablet) 5 mg DAILY PO 07/06/24 10:00 Diagnostic Test (Pha) (Accu-Chek Comfort Curve T) 1 strip ACHS 07/06/24 07:00 07/06/24 06:33 Insulin Human Regular (InsuLIN R) HS SC 07/06/24 22:00 Insulin Human Regular (InsuLIN R) AC SC 07/06/24 07:00 Dextrose 50 ml UD PRN IV Blood Sugar LESS THAN 60 07/06/24 01:45 Sodium Chloride (Saline Lock Ns) 10 ml Q8HR IV 07/06/24 06:00 07/06/24 06:33 Acetaminophen/ Hydrocodone Bitart ([place] 5/325MG Tab) 1 tab Q4HP PRN PO MODERATE PAIN (4-6 PAIN SCALE) 07/06/24 01:45 Ondansetron HCl (Zofran) 4 mg Q4HP PRN IV NAUSEA / VOMITING 07/06/24 01:45 07/06/24 04:01 Docusate Sodium (Colace Capsule) 100 mg BIDPRN PRN PO FOR CONSTIPATION 07/06/24 01:45 Acetaminophen (Tylenol Tablet) 650 mg Q6HP PRN PO PAIN SCALE 1-3 OR TEMP>100.4 07/06/24 01:45 Morphine Sulfate 2 mg Q4HPRN PRN IV SEVERE PAIN (7-10 PAIN SCALE) 07/06/24 01:45 07/06/24 04:02 Nitroglycerin (Ntrostat Sublingual) 0.4 mg Q5MINP PRN SL FOR CHEST PAIN 07/06/24 01:45 Morphine Sulfate 2 mg Q30M PRN IV FOR CHEST PAIN 07/06/24 01:45 Atorvastatin Calcium (Lipitor) 40 mg HS PO 07/06/24 22:00 Heparin Sodium/ Dextrose 250 ml @ 11 mls/hr [id number] IV 07/06/24 09:00 Review of Systems 10 pt ros otherwise negative Vital Signs Vital Signs Date Time Temp Pulse Resp B/P (MAP) Pulse Ox O2 Delivery O2 Flow Rate FiO2 07/06/24 08:05 90 07/06/24 07:18 17 96 Room Air* 0 21 07/06/24 07:18 143/86 (105) 07/06/24 00:46 98.7 98.7 Physical Exam nad s1 s2 rrr ctab soft nt/nd no edema Labs/Diagnostic Data Labs Test 07/06/24 06:31 07/06/24 06:13 07/06/24 05:30 07/05/24 22:41 Range/Units POC Glucose 140 H 70-106 mg/dl White Blood Count 8.2 4.4-10.8 10^3/uL Red Blood Count 4.84 4.0-5.20 10^6/uL Hemoglobin 14.9 12.2-16.2 g/dL Hematocrit 41.8 36.0-46.0 % Mean Corpuscular Volume 86.3 80.0-100.0 fL Mean Corpuscular Hemoglobin 30.8 28.0-32.0 pg Mean Corpuscular Hemoglobin Concent 35.7 32.0-36.0 g/dL Red Cell Distribution Width 13.7 11.8-14.3 % Platelet Count 246 140-450 10^3/uL Mean Platelet Volume 8.6 6.9-10.8 fL Neutrophils (%) (Auto) 59.9 37.0-80.0 % Lymphocytes (%) (Auto) 33.6 10.0-50.0 % Monocytes (%) (Auto) 5.5 0.0-12.0 % Eosinophils (%) (Auto) 0.4 0.0-7.0 % Basophils (%) (Auto) 0.6 0.0-2.0 % Neutrophils # (Auto) 4.9 1.6-8.6 10 ^3/uL Lymphocytes # (Auto) 2.8 0.4-5.4 10 ^3/uL Monocytes # (Auto) 0.5 0-1.3 10 ^3/uL Eosinophils # (Auto) 0 0-0.8 10 ^3/uL Basophils # (Auto) 0 0-0.2 10 ^3/uL Nucleated Red Blood Cells 0.2 % Prothrombin Time 11.1 9.3-11.8 sec Prothrombin Time INR 1.05 0.9-1.15 Activated Partial Thromboplast Time 27.9 24.5-34.5 SEC Sodium Level 138 136-145 mmol/L Potassium Level 3.7 3.5-5.1 mmol/L Chloride Level 103 98-107 mmol/L Carbon Dioxide Level 23 20-31 mmol/L Anion Gap 12 5-15 Blood Urea Nitrogen 11 9-23 mg/dL Creatinine 0.69 0.550-1.02 mg/dL Glomerular Filtration Rate Calc 94 >90 mL/min BUN/Creatinine Ratio 15.9 10.0-20.0 Serum Glucose 137 H 74-106 mg/dL Calcium Level 10.0 8.7-10.4 mg/dL Total Bilirubin 1.2 H 0.2-1.0 mg/dL Aspartate Amino Transferase (AST) 150 H 13-40 U/L Alanine Aminotransferase (ALT) 43 H 7-40 U/L Alkaline Phosphatase 79 46-116 U/L Troponin I High Sensitivity 06358 *H </=34 ng/L Total Protein 6.9 5.7-8.2 g/dL Albumin 4.4 3.2-4.8 g/dL Urine Color Light-yellow Yellow Urine Clarity Clear Clear Urine pH 7.0 5.0-9.0 Urine Specific [place] 1.015 1.001-1.035 Urine Protein Negative Negative Urine Ketones 1+ H Negative Urine Blood Negative Negative /uL Urine Nitrite Negative Negative Urine Bilirubin Negative Negative Urine Urobilinogen 2 H Negative mg/dL Urine Leukocyte Esterase Trace Negative /uL Urine RBC 1 0 - 4 /hpf Urine WBC 1 0 - 5 /hpf Urine Squamous Epithelial Cells Few <5 /hpf Urine Bacteria None seen None Seen /hpf Urine Mucus Few None Seen Urine Glucose Normal Normal mg/dL B-Type Natriuretic Peptide 312.34 0-100 pg/mL Assessment nstemi DM htn hl obesity Plan/Recommendation asa, start plavix check echo recommend LHC, pt agrees to plan after informed consent pending echo statin heparin gtt DM management , check a1c 40 mins critical care time spent Plan discussed with: Patient, Other (rn) FEI SAMANIEGO MD Jul 06, 2024 09:05
[2024-07-06] MEDS: CLOPIDOGREL BISULFATE 75 MG TAB PO ONE (10:30)
[2024-07-06] MEDS: amLODIPine BESYLATE 5 MG TAB PO SCH (10:33)
[2024-07-06] MEDS ORDERED: HEPARIN DRIP/D5W 100UNITS/ML 250 ML IV SCH (11:00)
--- NOTE | 2024-07-06 14:39 | DVHPN2 ---
Subjective 69-year-old female with a history of hypertension, type 2 diabetes, chronic pain syndrome comes with chief complaint of chest pain. Troponin was high. She has NSTEMI Changes from previous H/P or p: Changes Eyes: No Pain, No Vision change, No Conjunctivae inflammation, No Eyelid inflammation, No Other, No Redness ENT: No Ear pain, No Ear discharge, No Nose pain, No Nose discharge, No Nose congestion, No Mouth pain, No Mouth swelling, No Throat pain, No Throat swelling, No Other Cardiovascular: Chest Pain; No Palpitations, No Orthopnea, No Paroxysmal Noc. Dyspnea, No Edema, No Lt Headedness, No Other Respiratory: No Cough, No Dry, No Shortness of breath, No SOB with excertion, No Wheezing, No Hemoptysis, No Pleuritic Pain, No Sputum, No Other Gastrointestinal: Nausea, Vomiting; No Abdominal Pain, No Diarrhea, No Constipation, No Melena, No Hematochezia, No Other Genitourinary: No Dysuria, No Frequency, No Incontinence, No Hematuria, No Retention, No Other Musculoskeletal: No other, No neck pain, No shoulder pain, No arm pain, No back pain, No hand pain, No leg pain, No foot pain Skin: No Rash, No Lesions, No Jaundice, No Bruising, No Other Objective Vitals Vital Signs Date Time Temp Pulse Resp B/P (MAP) Pulse Ox O2 Delivery O2 Flow Rate FiO2 07/06/24 12:55 97.1 86 19 145/77 (99) 98 97.1 07/06/24 12:55 Room Air* 0 21 Intake/Output Intake and Output 07/06/24 07:00 Intake Total 48 ml Balance 48 ml Intake IV Total 48 ml General Appearance: Alert, Oriented X3, Cooperative, No acute distress Lungs: Clear to auscultation, Normal air movement Cardiovascular: Regular rate, Normal S1, Normal S2, No murmurs Abdomen: Normal bowel sounds, Soft, No tenderness Extremities: No edema Medications Current Medications Medications Dose Ordered Sig/Missy Route Start Time Stop Time Status Last Admin Dose Admin Hydralazine HCl 10 mg Q6HP PRN IV 07/06/24 01:45 Amlodipine Besylate 5 mg DAILY PO 07/06/24 10:00 07/06/24 10:33 5 MG Diagnostic Test (Pha) 1 strip ACHS 07/06/24 07:00 07/06/24 10:39 1 STRIP Insulin Human Regular HS SC 07/06/24 22:00 Insulin Human Regular AC SC 07/06/24 07:00 Dextrose 50 ml UD PRN IV 07/06/24 01:45 Sodium Chloride 10 ml Q8HR IV 07/06/24 06:00 07/06/24 14:19 10 ML Acetaminophen/ Hydrocodone Bitart 1 tab Q4HP PRN PO 07/06/24 01:45 Ondansetron HCl 4 mg Q4HP PRN IV 07/06/24 01:45 07/06/24 04:01 4 MG Docusate Sodium 100 mg BIDPRN PRN PO 07/06/24 01:45 Acetaminophen 650 mg Q6HP PRN PO 07/06/24 01:45 Morphine Sulfate 2 mg Q4HPRN PRN IV 07/06/24 01:45 07/06/24 04:02 2 MG Nitroglycerin 0.4 mg Q5MINP PRN SL 07/06/24 01:45 Morphine Sulfate 2 mg Q30M PRN IV 07/06/24 01:45 Atorvastatin Calcium 40 mg HS PO 07/06/24 22:00 Heparin Sodium/ Dextrose 250 ml @ 11 mls/hr [id number] IV 07/06/24 11:00 07/06/24 23:59 Laboratory Results Laboratory Tests 07/06/24 06:13 Chemistry Test 07/05/24 22:41 07/06/24 06:13 Albumin 4.5 g/dL (3.2-4.8) 4.4 g/dL (3.2-4.8) Calcium Level 9.9 mg/dL (8.7-10.4) 10.0 mg/dL (8.7-10.4) Total Protein 6.9 g/dL (5.7-8.2) 6.9 g/dL (5.7-8.2) Coagulation Test 07/05/24 22:41 07/06/24 06:13 Prothrombin Time 11.0 sec (9.3-11.8) 11.1 sec (9.3-11.8) Prothrombin Time INR 1.04 (0.9-1.15) 1.05 (0.9-1.15) Activated Partial Thromboplast Time 26.1 SEC (24.5-34.5) 27.9 SEC (24.5-34.5) Cardiac Markers Test 07/05/24 22:41 B-Type Natriuretic Peptide 312.34 pg/mL (0-100) LFT Test 07/05/24 22:41 07/06/24 06:13 Alanine Aminotransferase (ALT) 29 U/L (7-40) 43 U/L (7-40) H Alkaline Phosphatase 74 U/L (46-116) 79 U/L (46-116) Aspartate Amino Transferase (AST) 68 U/L (13-40) H 150 U/L (13-40) H Total Bilirubin 1.0 mg/dL (0.2-1.0) 1.2 mg/dL (0.2-1.0) H Urinalysis Test 07/06/24 05:30 Urine Color Light-yellow (Yellow) Urine Clarity Clear (Clear) Urine pH 7.0 (5.0-9.0) Urine Specific [place] 1.015 (1.001-1.035) Urine Protein Negative (Negative) Urine Ketones 1+ (Negative) H Urine Blood Negative /uL (Negative) Urine Nitrite Negative (Negative) Urine Bilirubin Negative (Negative) Urine Urobilinogen 2 mg/dL (Negative) H Urine Leukocyte Esterase Trace /uL (Negative) Urine RBC 1 /hpf (0 - 4) Urine WBC 1 /hpf (0 - 5) Urine Squamous Epithelial Cells Few /hpf (<5) Urine Bacteria None seen /hpf (None Seen) Urine Mucus Few (None Seen) Urine Glucose Normal mg/dL (Normal) Assessment/Plan Assessment/Plan NSTEMI Acute myocardial infarction Type 2 diabetes Hypertension Dyslipidemia Obesity Plan Heparin drip Aspirin Lipitor Plavix Cardiology consult Echo Heart catheterization tomorrow Plan discussed with: Patient My Orders Orders - MANASA WU MD Procedure Category Date Status Time Hemoglobin A1c LAB 07/07/24 Verified 04:00 Lipid Panel LAB 07/07/24 Verified 04:00 Magnesium LAB 07/07/24 Verified 04:00 Thyroid Stimulating LAB 07/07/24 Verified Hormone 04:00 Troponin-I Hs LAB 07/07/24 Verified 04:00 Date of Service: Jul 06, 2024 Billing Provider: MANASA WU MD Common Visit Codes: NOT BILLABLE MANASA WU MD Jul 06, 2024 14:39
[2024-07-06 15:40] LABS: INR 1.13 (0.9-1.15); Prothrombin Time 11.9 sec (9.3-11.8)
[2024-07-06 15:50] LABS: Partial Thromboplastin Time 90.8 SEC (24.5-34.5)
[2024-07-06] MEDS: ATORVASTATIN 20 MG TAB PO SCH (21:09)
[2024-07-07] VITALS (13 sets, daily range): BP systolic 91–111; BP diastolic 61–76; PULSE 77–94; RESP 12–20; TEMP 97.8–98.4; O2SAT 94–98
[2024-07-07 01:13] LABS: INR 1.08 (0.9-1.15); Partial Thromboplastin Time 41.5 SEC (24.5-34.5); Prothrombin Time 11.4 sec (9.3-11.8)
--- NOTE | 2024-07-07 06:55 | DVHSR ---
APPROVED REPORT EXAM: Two-dimensional and M-mode echocardiogram with Doppler and color Doppler. Blood Pressure: 143/96 mmHg INDICATION Elevated BNP RISK FACTORS Height: 60, Weight: 149 DIMENSIONS LVDd5.3 (3.8-5.7cm)LA (2D)4.0 (1.9-4.0cm)Aortic Root3.4 (2.0-3.7cm) LVDs4.4 (2.5-4.0cm)LA (MM) (1.9-4.0cm)Aortic Cusp Exc1.8 (1.5-2.0cm) EF (%) 35.0 (55-70%)Rt. Atrium3.1 (1.9-4.0cm)Asc. Aorta cm IVSd1.1 (0.7-1.1cm)RV (D) (1.8-2.4cm) PWd1.0 (0.7-1.1cm) Mitral Valve MitralMitral Stenosis E wave1.23m/sMV Mean GR.mmHg A wavem/sMV Peak GR.33mmHg E/A ratio0.02D MVAcm2 Aortic Valve Aortic ValveAortic Stenosis V10.79m/Joss Mean GR.1mmHg V20.79m/Joss Peak GR.3mmHg LVOT Diameter2.1 (1.8-2.4cm)Doppler AVA3.46cm2 AI P 1/2 Ahoc431.77ms Pulmonic Valve V20.67m/s Tricuspid Valve TR Velocity2.64m/s [id number] Other Information Technically limited study due to body habitus. Conclusion lvef 35-40% LV dilated mild RWMA noted, with anteroseptum and inferoseptum wall hypokinetic normal rv function left atrium enlarged no severe valve abnormalities noted
--- NOTE | 2024-07-07 07:26 | ECG ---
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
[2024-07-07 08:02] LABS: Basophils # (auto) 0 10 ^3/uL (0-0.2); Basophils % (auto) 0.6 % (0.0-2.0); Eosinophils # (auto) 0.1 10 ^3/uL (0-0.8); Eosinophils % (auto) 0.8 % (0.0-7.0); Hematocrit 39.2 % (36.0-46.0); Hemoglobin 13.8 g/dL (12.2-16.2); Lymphocytes # (auto) 2.4 10 ^3/uL (0.4-5.4); Lymphocytes % (auto) 31.6 % (10.0-50.0); Mean Corpuscular Hemoglobin 30.7 pg (28.0-32.0); Mean Corpuscular Hgb Conc. 35.2 g/dL (32.0-36.0); Mean Corpuscular Volume 87.1 fL (80.0-100.0); Monocytes # (auto) 0.7 10 ^3/uL (0-1.3); Monocytes % (auto) 9.3 % (0.0-12.0); Neutrophils # (auto) 4.5 10 ^3/uL (1.6-8.6); Neutrophils % (auto) 57.7 % (37.0-80.0); Platelet Count (auto) 211 10^3/uL (140-450); Red Blood Cells 4.49 10^6/uL (4.0-5.20); Red Cell Distribution Width 13.7 % (11.8-14.3); White Blood Cell 7.7 10^3/uL (4.4-10.8)
[2024-07-07 08:19] LABS: Alkaline Phosphatase 78 U/L (46-116); Anion Gap 10 (5-15); BUN/Creatinine Ratio 17.9 (10.0-20.0); Blood Urea Nitrogen 14 mg/dL (9-23); Calcium 9.9 mg/dL (8.7-10.4); Carbon Dioxide 26 mmol/L (20-31); Chloride 103 mmol/L (98-107); Sodium 139 mmol/L (136-145); Triglycerides 150 mg/dL (< 150)
[2024-07-07 08:20] LABS: Bilirubin, Total 1.2 mg/dL (0.2-1.0); Cholesterol 159 mg/dL (< 200); Total Protein 6.3 g/dL (5.7-8.2)
[2024-07-07 08:25] LABS: Alanine Aminotransferase 47 U/L (7-40); Aspartate Aminotransferase 77 U/L (13-40); Glucose 120 mg/dL (74-106); HDL Cholesterol 34 mg/dL (40-59); LDL Cholesterol 107 mg/dL (< 100); Potassium 3.5 mmol/L (3.5-5.1)
[2024-07-07] MEDS: ANGIOMAX 250 MG VIAL IV ONE (08:36)
[2024-07-07] MEDS: fentaNYL CITRATE 100 MCG/2 ML VL ONE (08:37)
[2024-07-07] MEDS: LIDOCAINE 2%HCL (LOCAL ANESTH.) INJ 20ML MDV ONE (08:37)
[2024-07-07] MEDS: SODIUM CHL 0.9% 0 ML ONE (08:37)
[2024-07-07] MEDS: HEPARIN SODIUM (PORCINE) 5000 UNITS/ML 1ML VIAL ONE (08:37)
[2024-07-07] MEDS: HEPARIN IN NS 1000Units/500mL 0 ML ONE (08:37)
[2024-07-07] MEDS: VERAPAMIL 2.5MG/ML INJ 2ML VIAL IV ONE (08:37)
[2024-07-07] MEDS: MIDAZOLAM HCL 2MG/2ML 2ml VIAL (1mg/ml) ONE (08:37)
[2024-07-07] MEDS: IODIXANOL 320MG/ML 100ML BTL IV ONE ×2 (08:38→08:39)
[2024-07-07] MEDS: HEPARIN IN NS 1000Units/500mL 1,500 ML ONE (08:39)
--- NOTE | 2024-07-07 09:18 | DVHPN2 ---
Progress Note Date Seen: Jul 07, 2024 Medical Necessity Reason Pt with a Central, PICC or Fol: No Subjective Patient reports: Feels better Other Systems: sp cath Objective vital signs Vital Sign Date Time Temp Pulse Resp B/P (MAP) Pulse Ox O2 Delivery O2 Flow Rate FiO2 07/07/24 08:00 Room Air* 0 21 07/07/24 05:00 98.1 81 18 111/75 (87) 94 98.1 Total Intake and Output 07/06/24 07/06/24 07/07/24 15:00 23:00 07:00 Intake Total 216 ml 330 ml 400 ml Output Total 400 ml Balance 216 ml -70 ml 400 ml medications Current Medications Medications Dose Ordered Sig/Missy Route Start Time Stop Time Status Last Admin Dose Admin Hydralazine HCl 10 mg Q6HP PRN IV 07/06/24 01:45 Amlodipine Besylate 5 mg DAILY PO 07/06/24 10:00 07/06/24 10:33 5 MG Diagnostic Test (Pha) 1 strip ACHS 07/06/24 07:00 07/07/24 06:00 1 STRIP Insulin Human Regular HS SC 07/06/24 22:00 07/06/24 21:12 4 UNITS Insulin Human Regular AC SC 07/06/24 07:00 07/06/24 16:29 9 UNITS Dextrose 50 ml UD PRN IV 07/06/24 01:45 Sodium Chloride 10 ml Q8HR IV 07/06/24 06:00 07/07/24 05:25 10 ML Acetaminophen/ Hydrocodone Bitart 1 tab Q4HP PRN PO 07/06/24 01:45 Ondansetron HCl 4 mg Q4HP PRN IV 07/06/24 01:45 07/06/24 04:01 4 MG Docusate Sodium 100 mg BIDPRN PRN PO 07/06/24 01:45 Acetaminophen 650 mg Q6HP PRN PO 07/06/24 01:45 Morphine Sulfate 2 mg Q4HPRN PRN IV 07/06/24 01:45 07/06/24 04:02 2 MG Nitroglycerin 0.4 mg Q5MINP PRN SL 07/06/24 01:45 Morphine Sulfate 2 mg Q30M PRN IV 07/06/24 01:45 Atorvastatin Calcium 40 mg HS PO 07/06/24 22:00 07/06/24 21:09 40 MG Examination: GENERAL:Abnormal, HEENT:Abnormal, LUNGS:Abnormal, CVS:Normal, CVS:Abnormal, ABDOMEN:Abnormal laboratory and microbiology Laboratory Tests 07/07/24 06:30 Test 07/07/24 06:30 Range/Units Serum Glucose 120 H 74-106 mg/dL Problem List/Assessment/Plan Problem List/Assessment/Plan multivessel cad nstemi htn DM moderate LV dysfunction heparin /lovenox asa start BB recommend cabg consult for severe 3v cad spoke with dr ventura Plan discussed with: Patient My Orders My Orders Orders - FEI SAMANIEGO MD Procedure Category Date Status Time Aeronautics Teacher: Obtain ORDERS 07/06/24 Transmitted Consent For: 10:48 Heparin Per Pharmacy ZARI 07/06/24 In Process Protocol 16:28 Cl Left Heart Cath CL 07/07/24 Taken 08:39 Date of Service: Jul 07, 2024 Billing Provider: FEI SAMANIEGO MD Common Visit Codes: NOT BILLABLE FEI SAMANIEGO MD Jul 07, 2024 09:18
--- NOTE | 2024-07-07 09:22 | DVHOP2 ---
Operative Report Operative Report CARDIAC BEDSPRING ASSEMBLER PROCEDURE REPORT [place], [place] Date of Service: 07/07/24 Lighting Specialist: Fei Samaniego MD PROCEDURES PERFORMED: Coronary angiogram, left heart catheterization, conscious sedation administration and supervision, less than 15 minutes; fluoroscopy use and interpretation. PREOPERATIVE DIAGNOSES: NSTEMI POSTOP DIAGNOSIS: NSTEMI DESCRIPTION OF PROCEDURE: The patient or appropriate family signed informed consent understanding the risks, benefits and alternatives of the procedure, they wished to proceed. The patient was brought to the cardiac laborer [facility] [place] state. The patient was prepped in a sterile fashion. Sedation was used per cardiac cath protocol. I administered 2 mL of 2% lidocaine to the right wrist. With an antegrade front wall puncture. I cannulated the right radial artery and placed a 6-[place] Glidesheath slender. Next, an intra-arterial spasmolytic was administered. Next, a - 5 [place] catheter and were used for coronary angiogram and LVEDP measurement and pressure pullback. At the completion of procedure, all guides and wires were removed, and there were no immediate complications. 4000 U of IV heparin was admin. FINDINGS: RCA: small to Moderate vessel off the right sinus of Valsalva, there is a prox 99% stenoiss and mid vessel 99% stenosis. summer 1 flow down PDA .prob a codominant vessel LEFT MAIN: Moderate size left main, it bifurcates into LAD and circumflex. no severe stenosis. CIRCUMFLEX: Moderate caliber vessel coming off the left main 70% prox CX discrete lesion with good OM targets distally . distal OM has 70% stenosis LAD: LAD is a moderate caliber vessel coming of the left main. 95% mid LAD stenosis and distal LAD 99% small vessel disease. there is an apical target LVEDP of 14 mmhg CONCLUSIONS: 1. severe 3v cad PLAN: Aggressive risk factor modification and medical management for the patient. cabg eval lovenox asa statin FEI SAMANIEGO MD Jul 07, 2024 09:22
--- NOTE | 2024-07-07 12:01 | DVHPN2 ---
Subjective Status post heart catheterization showing three-vessel coronary artery disease requiring CABG surgery Changes from previous H/P or p: Changes Eyes: No Pain, No Vision change, No Conjunctivae inflammation, No Eyelid inflammation, No Other, No Redness ENT: No Ear pain, No Ear discharge, No Nose pain, No Nose discharge, No Nose congestion, No Mouth pain, No Mouth swelling, No Throat pain, No Throat swelling, No Other Cardiovascular: Chest Pain; No Palpitations, No Orthopnea, No Paroxysmal Noc. Dyspnea, No Edema, No Lt Headedness, No Other Respiratory: No Cough, No Dry, No Shortness of breath, No SOB with excertion, No Wheezing, No Hemoptysis, No Pleuritic Pain, No Sputum, No Other Gastrointestinal: Nausea, Vomiting; No Abdominal Pain, No Diarrhea, No Constipation, No Melena, No Hematochezia, No Other Genitourinary: No Dysuria, No Frequency, No Incontinence, No Hematuria, No Retention, No Other Musculoskeletal: No other, No neck pain, No shoulder pain, No arm pain, No back pain, No hand pain, No leg pain, No foot pain Skin: No Rash, No Lesions, No Jaundice, No Bruising, No Other Objective Vitals Vital Signs Date Time Temp Pulse Resp B/P (MAP) Pulse Ox O2 Delivery O2 Flow Rate FiO2 07/07/24 10:28 98.0 79 16 99/65 (76) 96 98.0 07/07/24 08:00 Room Air* 0 21 Intake/Output Intake and Output 07/07/24 07:00 Intake Total 946 ml Output Total 400 ml Balance 546 ml Intake Oral 930 ml IV Total 16 ml Output Urine Total 400 ml # Voids 2 General Appearance: Alert, Oriented X3, Cooperative, No acute distress Lungs: Clear to auscultation, Normal air movement Cardiovascular: Regular rate, Normal S1, Normal S2, No murmurs Abdomen: Normal bowel sounds, Soft, No tenderness Extremities: No edema Medications Current Medications Medications Dose Ordered Sig/Missy Route Start Time Stop Time Status Last Admin Dose Admin Hydralazine HCl 10 mg Q6HP PRN IV 07/06/24 01:45 Amlodipine Besylate 5 mg DAILY PO 07/06/24 10:00 07/06/24 10:33 5 MG Diagnostic Test (Pha) 1 strip ACHS 07/06/24 07:00 07/07/24 06:00 1 STRIP Insulin Human Regular HS SC 07/06/24 22:00 07/06/24 21:12 4 UNITS Insulin Human Regular AC SC 07/06/24 07:00 07/06/24 16:29 9 UNITS Dextrose 50 ml UD PRN IV 07/06/24 01:45 Sodium Chloride 10 ml Q8HR IV 07/06/24 06:00 07/07/24 05:25 10 ML Acetaminophen/ Hydrocodone Bitart 1 tab Q4HP PRN PO 07/06/24 01:45 Ondansetron HCl 4 mg Q4HP PRN IV 07/06/24 01:45 07/06/24 04:01 4 MG Docusate Sodium 100 mg BIDPRN PRN PO 07/06/24 01:45 Acetaminophen 650 mg Q6HP PRN PO 07/06/24 01:45 Morphine Sulfate 2 mg Q4HPRN PRN IV 07/06/24 01:45 07/06/24 04:02 2 MG Nitroglycerin 0.4 mg Q5MINP PRN SL 07/06/24 01:45 Morphine Sulfate 2 mg Q30M PRN IV 07/06/24 01:45 Atorvastatin Calcium 40 mg HS PO 07/06/24 22:00 07/06/24 21:09 40 MG Enoxaparin Sodium 70 mg Q12H SC 07/07/24 16:00 Laboratory Results Laboratory Tests 07/07/24 06:30 Chemistry Test 07/07/24 06:30 Albumin 4.0 g/dL (3.2-4.8) Calcium Level 9.9 mg/dL (8.7-10.4) Magnesium Level 2.0 mg/dL (1.6-2.6) Total Protein 6.3 g/dL (5.7-8.2) Coagulation Test 07/06/24 14:47 07/07/24 00:27 Prothrombin Time 11.9 sec (9.3-11.8) H 11.4 sec (9.3-11.8) Prothrombin Time INR 1.13 (0.9-1.15) 1.08 (0.9-1.15) Activated Partial Thromboplast Time 90.8 SEC (24.5-34.5) *H 41.5 SEC (24.5-34.5) H Lipid panel Test 07/07/24 06:30 Cholesterol Level 159 mg/dL (< 200) HDL Cholesterol 34 mg/dL (40-59) L Triglycerides Level 150 mg/dL (< 150) H LFT Test 07/07/24 06:30 Alanine Aminotransferase (ALT) 47 U/L (7-40) H Alkaline Phosphatase 78 U/L (46-116) Aspartate Amino Transferase (AST) 77 U/L (13-40) H Total Bilirubin 1.2 mg/dL (0.2-1.0) H HgA1c, TSH Test 07/07/24 06:30 Hemoglobin A1c 6.8 % A1C (<5.7) H Thyroid Stimulating Hormone (TSH) 1.79 uIU/mL (0.55-4.78) Urinalysis Test 07/06/24 05:30 Urine Color Light-yellow (Yellow) Urine Clarity Clear (Clear) Urine pH 7.0 (5.0-9.0) Urine Specific [place] 1.015 (1.001-1.035) Urine Protein Negative (Negative) Urine Ketones 1+ (Negative) H Urine Blood Negative /uL (Negative) Urine Nitrite Negative (Negative) Urine Bilirubin Negative (Negative) Urine Urobilinogen 2 mg/dL (Negative) H Urine Leukocyte Esterase Trace /uL (Negative) Urine RBC 1 /hpf (0 - 4) Urine WBC 1 /hpf (0 - 5) Urine Squamous Epithelial Cells Few /hpf (<5) Urine Bacteria None seen /hpf (None Seen) Urine Mucus Few (None Seen) Urine Glucose Normal mg/dL (Normal) Assessment/Plan Assessment/Plan NSTEMI Acute myocardial infarction Type 2 diabetes Hypertension Dyslipidemia Obesity Plan Heparin drip Aspirin Lipitor Plavix Cardiology consult Echo Heart catheterization tomorrow 07/07/2024: Transfer to higher level of care for CABG Lovenox Aspirin Lipitor Transfer to higher level of care once a bed is available Plan discussed with: Patient My Orders Orders - MANASA WU MD Procedure Category Date Status Time * Can Piler CONS 07/07/24 Transmitted Consult Discharge DISCHARGE 07/07/24 Transmitted 10:10 Date of Service: Jul 07, 2024 Billing Provider: MANASA WU MD Common Visit Codes: NOT BILLABLE MANASA WU MD Jul 07, 2024 12:01
--- NOTE | 2024-07-07 13:59 | DVHOP2 ---
Operative Report Operative Report CARDIAC INSTRUMENTATION TECH PROCEDURE REPORT [place], [place] Date of Service: 07/07/24 Conveyor Feeder: Fei Samaniego MD PROCEDURES PERFORMED: Coronary angiogram, left heart catheterization, conscious sedation administration and supervision, less than 15 minutes; fluoroscopy use and interpretation. PREOPERATIVE DIAGNOSES: severe chf,r/o ischemic heart disease POSTOP DIAGNOSIS: NICM DESCRIPTION OF PROCEDURE: The patient or appropriate family signed informed consent understanding the risks, benefits and alternatives of the procedure, they wished to proceed. The patient was brought to the cardiac laborer pole crew in [place].p.o. state. The patient was prepped in a sterile fashion. Sedation was used per cardiac cath protocol. I administered 2 mL of 2% lidocaine to the right wrist. With an antegrade front wall puncture. I cannulated the right radial artery and placed a 6-[place] Glidesheath slender. Next, an intra-arterial spasmolytic was administered. Next, a - 5 [place] catheter and were used for coronary angiogram and LVEDP measurement and pressure pullback. At the completion of procedure, all guides and wires were removed, and there were no immediate complications. FINDINGS: RCA: Moderate vessel off the right sinus of Valsalva, there is no severe flow limiting stenosis. LEFT MAIN: large size left main, it bifurcates into LAD and circumflex. no severe stenosis. CIRCUMFLEX: Moderate caliber vessel coming off the left main with no flow limiting stenosis. LAD: LAD is a moderate caliber vessel coming of the left main. no severe stenosis LVEDP of 23 mmhg sbp 80-90 CONCLUSIONS: 1. end stage NICM 2. elevated LVEDP PLAN: Aggressive risk factor modification and medical management for the patient. consider midodrine consider jardiance and diuretics as tolerable poor prognosis FEI SAMANIEGO MD Jul 07, 2024 13:59
[2024-07-07] MEDS: ENOXAPARIN SOD 80 MG/0.8ML SYRINGE SC SCH (18:13)
[2024-07-08] VITALS (8 sets, daily range): BP systolic 99–109; BP diastolic 60–72; PULSE 79–104; RESP 15–18; TEMP 97.4–98.2; O2SAT 96–99
[2024-07-08 07:34] LABS: Chloride 105 mmol/L (98-107); Potassium 3.8 mmol/L (3.5-5.1); Sodium 139 mmol/L (136-145)
[2024-07-08 07:35] LABS: Anion Gap 9 (5-15); Calcium 9.9 mg/dL (8.7-10.4); Carbon Dioxide 25 mmol/L (20-31)
[2024-07-08 07:42] LABS: BUN/Creatinine Ratio 17.9 (10.0-20.0); Blood Urea Nitrogen 15 mg/dL (9-23)
[2024-07-08 07:44] LABS: Glucose 120 mg/dL (74-106)
[2024-07-08] MEDS: ASPirin 81 mg TAB PO SCH (08:40)
--- NOTE | 2024-07-08 12:40 | DVHPN2 ---
Progress Note Date Seen: Jul 08, 2024 Medical Necessity Reason Pt with a Central, PICC or Fol: No Subjective Patient reports: Feels better Objective vital signs Vital Sign Date Time Temp Pulse Resp B/P (MAP) Pulse Ox O2 Delivery O2 Flow Rate FiO2 07/08/24 08:49 97.7 86 15 99/70 (80) 96 97.7 07/08/24 08:00 Room Air* 0 21 Total Intake and Output 07/07/24 07/07/24 07/08/24 15:00 23:00 07:00 Intake Total 850 ml 650 ml Balance 850 ml 650 ml medications Current Medications Medications Dose Ordered Sig/Missy Route Start Time Stop Time Status Last Admin Dose Admin Hydralazine HCl 10 mg Q6HP PRN IV 07/06/24 01:45 Amlodipine Besylate 5 mg DAILY PO 07/06/24 10:00 07/08/24 08:41 5 MG Diagnostic Test (Pha) 1 strip ACHS 07/06/24 07:00 07/08/24 11:25 1 STRIP Insulin Human Regular HS SC 07/06/24 22:00 07/07/24 21:35 3 UNITS Insulin Human Regular AC SC 07/06/24 07:00 07/08/24 11:38 2 UNITS Dextrose 50 ml UD PRN IV 07/06/24 01:45 Sodium Chloride 10 ml Q8HR IV 07/06/24 06:00 07/08/24 05:56 10 ML Acetaminophen/ Hydrocodone Bitart 1 tab Q4HP PRN PO 07/06/24 01:45 Ondansetron HCl 4 mg Q4HP PRN IV 07/06/24 01:45 07/06/24 04:01 4 MG Docusate Sodium 100 mg BIDPRN PRN PO 07/06/24 01:45 Acetaminophen 650 mg Q6HP PRN PO 07/06/24 01:45 Morphine Sulfate 2 mg Q4HPRN PRN IV 07/06/24 01:45 07/06/24 04:02 2 MG Nitroglycerin 0.4 mg Q5MINP PRN SL 07/06/24 01:45 Morphine Sulfate 2 mg Q30M PRN IV 07/06/24 01:45 Atorvastatin Calcium 40 mg HS PO 07/06/24 22:00 07/07/24 21:30 40 MG Enoxaparin Sodium 70 mg Q12H SC 07/07/24 16:00 07/08/24 04:47 70 MG Aspirin 81 mg DAILY PO 07/08/24 10:00 07/08/24 08:40 81 MG Examination: GENERAL:Abnormal, HEENT:Abnormal, LUNGS:Abnormal, CVS:Abnormal, ABDOMEN:Abnormal laboratory and microbiology Laboratory Tests 07/08/24 06:42 07/07/24 06:30 Test 07/08/24 06:42 Range/Units Serum Glucose 120 H 74-106 mg/dL Microbiology Date/Time Source Procedure Growth Status 07/07/24 02:20 Nose MRSA Screen - Final Complete Problem List/Assessment/Plan Problem List/Assessment/Plan multivessel cad nstemi htn DM moderate LV dysfunction heparin /lovenox asa start BB recommend cabg consult for severe 3v cad spoke with dr ventura accepted [facility] spoke to ct surgery cont asa/lovenox/ hadstatin Plan discussed with: Patient My Orders My Orders Orders - FEI SAMANIEGO MD Procedure Category Date Status Time Imaging Transfer ORDERS 07/07/24 Transmitted Request 17:17 Date of Service: Jul 08, 2024 Billing Provider: FEI SAMANIEGO MD Common Visit Codes: NOT BILLABLE FEI SAMANIEGO MD Jul 08, 2024 12:40
--- NOTE | 2024-07-08 13:35 | DVHDS2 ---
Discharge Summary Date of Admission Jul 06, 2024 at 01:32 Date of Discharge: Jul 07, 2024 Labs/Diagnostic Data: Laboratory Results Test 07/08/24 11:24 07/08/24 06:42 07/07/24 06:30 07/07/24 00:27 POC Glucose 156 mg/dl (70-106) Sodium Level 139 mmol/L (136-145) Potassium Level 3.8 mmol/L (3.5-5.1) Chloride Level 105 mmol/L (98-107) Carbon Dioxide Level 25 mmol/L (20-31) Anion Gap 9 (5-15) Blood Urea Nitrogen 15 mg/dL (9-23) Creatinine 0.84 mg/dL (0.550-1.02) Glomerular Filtration Rate Calc 75 mL/min (>90) BUN/Creatinine Ratio 17.9 (10.0-20.0) Serum Glucose 120 mg/dL (74-106) Calcium Level 9.9 mg/dL (8.7-10.4) White Blood Count 7.7 10^3/uL (4.4-10.8) Red Blood Count 4.49 10^6/uL (4.0-5.20) Hemoglobin 13.8 g/dL (12.2-16.2) Hematocrit 39.2 % (36.0-46.0) Mean Corpuscular Volume 87.1 fL (80.0-100.0) Mean Corpuscular Hemoglobin 30.7 pg (28.0-32.0) Mean Corpuscular Hemoglobin Concent 35.2 g/dL (32.0-36.0) Red Cell Distribution Width 13.7 % (11.8-14.3) Platelet Count 211 10^3/uL (140-450) Mean Platelet Volume 8.6 fL (6.9-10.8) Neutrophils (%) (Auto) 57.7 % (37.0-80.0) Lymphocytes (%) (Auto) 31.6 % (10.0-50.0) Monocytes (%) (Auto) 9.3 % (0.0-12.0) Eosinophils (%) (Auto) 0.8 % (0.0-7.0) Basophils (%) (Auto) 0.6 % (0.0-2.0) Neutrophils # (Auto) 4.5 10 ^3/uL (1.6-8.6) Lymphocytes # (Auto) 2.4 10 ^3/uL (0.4-5.4) Monocytes # (Auto) 0.7 10 ^3/uL (0-1.3) Eosinophils # (Auto) 0.1 10 ^3/uL (0-0.8) Basophils # (Auto) 0 10 ^3/uL (0-0.2) Nucleated Red Blood Cells 0.0 % Hemoglobin A1c 6.8 % A1C (<5.7) Magnesium Level 2.0 mg/dL (1.6-2.6) Total Bilirubin 1.2 mg/dL (0.2-1.0) Aspartate Amino Transferase (AST) 77 U/L (13-40) Alanine Aminotransferase (ALT) 47 U/L (7-40) Alkaline Phosphatase 78 U/L (46-116) Troponin I High Sensitivity 80551 ng/L (</=34) Total Protein 6.3 g/dL (5.7-8.2) Albumin 4.0 g/dL (3.2-4.8) Triglycerides Level 150 mg/dL (< 150) Cholesterol Level 159 mg/dL (< 200) LDL Cholesterol 107 mg/dL (< 100) HDL Cholesterol 34 mg/dL (40-59) Thyroid Stimulating Hormone (TSH) 1.79 uIU/mL (0.55-4.78) Prothrombin Time 11.4 sec (9.3-11.8) Prothrombin Time INR 1.08 (0.9-1.15) Activated Partial Thromboplast Time 41.5 SEC (24.5-34.5) Test 07/06/24 05:30 07/05/24 22:41 Urine Color Light-yellow (Yellow) Urine Clarity Clear (Clear) Urine pH 7.0 (5.0-9.0) Urine Specific [place] 1.015 (1.001-1.035) Urine Protein Negative (Negative) Urine Ketones 1+ (Negative) Urine Blood Negative /uL (Negative) Urine Nitrite Negative (Negative) Urine Bilirubin Negative (Negative) Urine Urobilinogen 2 mg/dL (Negative) Urine Leukocyte Esterase Trace /uL (Negative) Urine RBC 1 /hpf (0 - 4) Urine WBC 1 /hpf (0 - 5) Urine Squamous Epithelial Cells Few /hpf (<5) Urine Bacteria None seen /hpf (None Seen) Urine Mucus Few (None Seen) Urine Glucose Normal mg/dL (Normal) B-Type Natriuretic Peptide 312.34 pg/mL (0-100) Other Laboratory Tests 07/08/24 06:42 07/07/24 06:30 Brief Hx & Hospital Course: Final diagnoses: NSTEMI Acute myocardial infarction Three-vessel coronary artery disease Type 2 diabetes Hypertension Dyslipidemia Obesity 69-year-old female who was admitted for chest pain and NSTEMI required an angiogram which showed three-vessel coronary artery disease The recommendation is for her to have a CABG The patient will need to be transferred to higher level of care for that Continue aspirin, Lipitor, Lovenox, She is accepted to [facility] [place], waiting on a bed Transfer to higher level of care as soon as possible Condition at Discharge: Stable Final Diagnosis/Problems List CAD 3 vessell disease NSTEMI Acute myocardial infarction Type 2 diabetes Hypertension Dyslipidemia Obesity Discharge Disposition: Acute Care Facility SNF Discharge Will this Physician continue t: No Discharge Instruct/Medications Diet: Cardiac 2g Na,low cholest Activity: Light activity Follow Up/Referral: HLOC Medications: See Med Rec Discharge Statement: "Patient was advised to return to the ER or call 911 if any headaches, dizziness, shortness of breath, chest pain, abdominal pain, bleeding, fevers, or worsening of medical condition. Patient was counseled about treatment plan, medications, possible side effects, patientverbalized understanding. All questions were answered to the best of my ability. This discharge took greater then 30 minutes in planning, reviewing documentation, counseling the patient, and discussing with other team members." ASSESSMENT ASSESSMENT Assessment CAD 3 vessell disease NSTEMI Acute myocardial infarction Type 2 diabetes Hypertension Dyslipidemia Obesity Date of Service: Jul 08, 2024 Billing Provider: MANASA WU MD Common Visit Codes: NOT BILLABLE MANASA WU MD Jul 08, 2024 13:35
[2024-07-08] MEDS: DOCUSATE SOD 100 MG CAP PO PRN (14:12)
[2024-07-08] MEDS: MORPHINE SULFATE INJ 2 MG/ml SYRG IV PRN (16:57)
[2024-07-08] MEDS: HYDROcodone-ACET 5/325MG TAB PO PRN (21:44)
[2024-07-09] VITALS (9 sets, daily range): BP systolic 95–117; BP diastolic 60–75; PULSE 89–98; RESP 16–18; TEMP 98.2–98.9; O2SAT 96–98
--- NOTE | 2024-07-09 09:51 | ECG ---
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
--- NOTE | 2024-07-09 11:17 | DVHPN2 ---
Subjective No new complaints No chest pain Waiting to be transferred to higher level of care Changes from previous H/P or p: Changes Eyes: No Pain, No Vision change, No Conjunctivae inflammation, No Eyelid inflammation, No Other, No Redness ENT: No Ear pain, No Ear discharge, No Nose pain, No Nose discharge, No Nose congestion, No Mouth pain, No Mouth swelling, No Throat pain, No Throat swelling, No Other Cardiovascular: Chest Pain; No Palpitations, No Orthopnea, No Paroxysmal Noc. Dyspnea, No Edema, No Lt Headedness, No Other Respiratory: No Cough, No Dry, No Shortness of breath, No SOB with excertion, No Wheezing, No Hemoptysis, No Pleuritic Pain, No Sputum, No Other Gastrointestinal: Nausea, Vomiting; No Abdominal Pain, No Diarrhea, No Constipation, No Melena, No Hematochezia, No Other Genitourinary: No Dysuria, No Frequency, No Incontinence, No Hematuria, No Retention, No Other Musculoskeletal: No other, No neck pain, No shoulder pain, No arm pain, No back pain, No hand pain, No leg pain, No foot pain Skin: No Rash, No Lesions, No Jaundice, No Bruising, No Other Objective Vitals Vital Signs Date Time Temp Pulse Resp B/P (MAP) Pulse Ox O2 Delivery O2 Flow Rate FiO2 07/09/24 09:51 105/68 07/09/24 08:45 98.9 94 16 96 98.9 07/09/24 07:55 Room Air* 0 21 Intake/Output Intake and Output 07/09/24 07:00 Intake Total 1575 ml Balance 1575 ml Intake Oral 1575 ml # Voids 10 General Appearance: Alert, Oriented X3, Cooperative, No acute distress Lungs: Clear to auscultation, Normal air movement Cardiovascular: Regular rate, Normal S1, Normal S2, No murmurs Abdomen: Normal bowel sounds, Soft, No tenderness Extremities: No edema Medications Current Medications Medications Dose Ordered Sig/Missy Route Start Time Stop Time Status Last Admin Dose Admin Hydralazine HCl 10 mg Q6HP PRN IV 07/06/24 01:45 Amlodipine Besylate 5 mg DAILY PO 07/06/24 10:00 07/09/24 09:51 5 MG Diagnostic Test (Pha) 1 strip ACHS 07/06/24 07:00 07/09/24 06:14 1 STRIP Insulin Human Regular HS SC 07/06/24 22:00 07/08/24 21:53 3 UNITS Insulin Human Regular AC SC 07/06/24 07:00 07/08/24 11:38 2 UNITS Dextrose 50 ml UD PRN IV 07/06/24 01:45 Sodium Chloride 10 ml Q8HR IV 07/06/24 06:00 07/09/24 06:14 10 ML Acetaminophen/ Hydrocodone Bitart 1 tab Q4HP PRN PO 07/06/24 01:45 07/08/24 21:44 1 TAB Ondansetron HCl 4 mg Q4HP PRN IV 07/06/24 01:45 07/06/24 04:01 4 MG Docusate Sodium 100 mg BIDPRN PRN PO 07/06/24 01:45 07/08/24 14:12 100 MG Acetaminophen 650 mg Q6HP PRN PO 07/06/24 01:45 Morphine Sulfate 2 mg Q4HPRN PRN IV 07/06/24 01:45 07/06/24 04:02 2 MG Nitroglycerin 0.4 mg Q5MINP PRN SL 07/06/24 01:45 Morphine Sulfate 2 mg Q30M PRN IV 07/06/24 01:45 07/08/24 16:57 2 MG Atorvastatin Calcium 40 mg HS PO 07/06/24 22:00 07/08/24 21:43 40 MG Enoxaparin Sodium 70 mg Q12H SC 07/07/24 16:00 07/08/24 16:38 70 MG Aspirin 81 mg DAILY PO 07/08/24 10:00 07/09/24 09:51 81 MG Laboratory Results Laboratory Tests 07/07/24 06:30 07/08/24 06:42 Urinalysis Test 07/06/24 05:30 Urine Color Light-yellow (Yellow) Urine Clarity Clear (Clear) Urine pH 7.0 (5.0-9.0) Urine Specific [place] 1.015 (1.001-1.035) Urine Protein Negative (Negative) Urine Ketones 1+ (Negative) H Urine Blood Negative /uL (Negative) Urine Nitrite Negative (Negative) Urine Bilirubin Negative (Negative) Urine Urobilinogen 2 mg/dL (Negative) H Urine Leukocyte Esterase Trace /uL (Negative) Urine RBC 1 /hpf (0 - 4) Urine WBC 1 /hpf (0 - 5) Urine Squamous Epithelial Cells Few /hpf (<5) Urine Bacteria None seen /hpf (None Seen) Urine Mucus Few (None Seen) Urine Glucose Normal mg/dL (Normal) Microbiology Microbiology Date/Time Source Procedure Growth Status 07/07/24 02:20 Nose MRSA Screen - Final Complete Assessment/Plan Assessment/Plan NSTEMI Acute myocardial infarction Type 2 diabetes Hypertension Dyslipidemia Obesity Plan Heparin drip Aspirin Lipitor Plavix Cardiology consult Echo Heart catheterization tomorrow 07/07/2024: Transfer to higher level of care for CABG Lovenox Aspirin Lipitor Transfer to higher level of care once a bed is available 07/09/2024: Continue the current management pending transfer to higher level of care for CABG surgery Plan discussed with: Patient Date of Service: Jul 09, 2024 Billing Provider: MANASA WU MD Common Visit Codes: NOT BILLABLE MANASA WU MD Jul 09, 2024 11:17
--- NOTE | 2024-07-09 11:38 | DVHPN2 ---
Progress Note Date Seen: Jul 09, 2024 Medical Necessity Reason Pt with a Central, PICC or Fol: No Subjective Other Systems: awaiting transfer Objective vital signs Vital Sign Date Time Temp Pulse Resp B/P (MAP) Pulse Ox O2 Delivery O2 Flow Rate FiO2 07/09/24 09:51 105/68 07/09/24 08:45 98.9 94 16 96 98.9 07/09/24 07:55 Room Air* 0 21 Total Intake and Output 07/08/24 07/08/24 07/09/24 15:00 23:00 07:00 Intake Total 825 ml 750 ml Balance 825 ml 750 ml medications Current Medications Medications Dose Ordered Sig/Missy Route Start Time Stop Time Status Last Admin Dose Admin Hydralazine HCl 10 mg Q6HP PRN IV 07/06/24 01:45 Amlodipine Besylate 5 mg DAILY PO 07/06/24 10:00 07/09/24 09:51 5 MG Diagnostic Test (Pha) 1 strip ACHS 07/06/24 07:00 07/09/24 06:14 1 STRIP Insulin Human Regular HS SC 07/06/24 22:00 07/08/24 21:53 3 UNITS Insulin Human Regular AC SC 07/06/24 07:00 07/08/24 11:38 2 UNITS Dextrose 50 ml UD PRN IV 07/06/24 01:45 Sodium Chloride 10 ml Q8HR IV 07/06/24 06:00 07/09/24 06:14 10 ML Acetaminophen/ Hydrocodone Bitart 1 tab Q4HP PRN PO 07/06/24 01:45 07/08/24 21:44 1 TAB Ondansetron HCl 4 mg Q4HP PRN IV 07/06/24 01:45 07/06/24 04:01 4 MG Docusate Sodium 100 mg BIDPRN PRN PO 07/06/24 01:45 07/08/24 14:12 100 MG Acetaminophen 650 mg Q6HP PRN PO 07/06/24 01:45 Morphine Sulfate 2 mg Q4HPRN PRN IV 07/06/24 01:45 07/06/24 04:02 2 MG Nitroglycerin 0.4 mg Q5MINP PRN SL 07/06/24 01:45 Morphine Sulfate 2 mg Q30M PRN IV 07/06/24 01:45 07/08/24 16:57 2 MG Atorvastatin Calcium 40 mg HS PO 07/06/24 22:00 07/08/24 21:43 40 MG Enoxaparin Sodium 70 mg Q12H SC 07/07/24 16:00 07/08/24 16:38 70 MG Aspirin 81 mg DAILY PO 07/08/24 10:00 07/09/24 09:51 81 MG Examination: GENERAL:Abnormal, HEENT:Abnormal, LUNGS:Abnormal, CVS:Abnormal, ABDOMEN:Normal laboratory and microbiology Laboratory Tests 07/08/24 06:42 07/07/24 06:30 Test 07/08/24 06:42 Range/Units Serum Glucose 120 H 74-106 mg/dL Microbiology Date/Time Source Procedure Growth Status 07/07/24 02:20 Nose MRSA Screen - Final Complete Problem List/Assessment/Plan Problem List/Assessment/Plan multivessel cad nstemi htn DM moderate LV dysfunction heparin /lovenox asa start BB recommend cabg consult for severe 3v cad spoke with dr ventura accepted [facility] spoke to ct surgery cont asa/lovenox/ hadstatin Plan discussed with: Patient Date of Service: Jul 09, 2024 Billing Provider: FEI SAMANIEGO MD Common Visit Codes: NOT BILLABLE FEI SAMANIEGO MD Jul 09, 2024 11:38
[2024-07-10] VITALS (7 sets, daily range): BP systolic 95–109; BP diastolic 62–69; PULSE 72–91; RESP 17–20; TEMP 97.7–98.4; O2SAT 96–99
--- NOTE | 2024-07-10 09:10 | DVHPN2 ---
Subjective No complaints Vital signs are stable Waiting for transfer to higher level of care Changes from previous H/P or p: Changes Eyes: No Pain, No Vision change, No Conjunctivae inflammation, No Eyelid inflammation, No Other, No Redness ENT: No Ear pain, No Ear discharge, No Nose pain, No Nose discharge, No Nose congestion, No Mouth pain, No Mouth swelling, No Throat pain, No Throat swelling, No Other Cardiovascular: Chest Pain; No Palpitations, No Orthopnea, No Paroxysmal Noc. Dyspnea, No Edema, No Lt Headedness, No Other Respiratory: No Cough, No Dry, No Shortness of breath, No SOB with excertion, No Wheezing, No Hemoptysis, No Pleuritic Pain, No Sputum, No Other Gastrointestinal: Nausea, Vomiting; No Abdominal Pain, No Diarrhea, No Constipation, No Melena, No Hematochezia, No Other Genitourinary: No Dysuria, No Frequency, No Incontinence, No Hematuria, No Retention, No Other Musculoskeletal: No other, No neck pain, No shoulder pain, No arm pain, No back pain, No hand pain, No leg pain, No foot pain Skin: No Rash, No Lesions, No Jaundice, No Bruising, No Other Objective Vitals Vital Signs Date Time Temp Pulse Resp B/P (MAP) Pulse Ox O2 Delivery O2 Flow Rate FiO2 07/10/24 05:00 98.0 88 20 100/62 (75) 96 98.0 07/09/24 20:00 Room Air* 0 21 Intake/Output Intake and Output 07/10/24 07:00 Intake Total 650 ml Balance 650 ml Intake Oral 650 ml # Voids 6 General Appearance: Alert, Oriented X3, Cooperative, No acute distress Lungs: Clear to auscultation, Normal air movement Cardiovascular: Regular rate, Normal S1, Normal S2, No murmurs Abdomen: Normal bowel sounds, Soft, No tenderness Extremities: No edema Medications Current Medications Medications Dose Ordered Sig/Missy Route Start Time Stop Time Status Last Admin Dose Admin Hydralazine HCl 10 mg Q6HP PRN IV 07/06/24 01:45 Amlodipine Besylate 5 mg DAILY PO 07/06/24 10:00 07/09/24 09:51 5 MG Diagnostic Test (Pha) 1 strip ACHS 07/06/24 07:00 07/10/24 06:06 1 STRIP Insulin Human Regular HS SC 07/06/24 22:00 07/09/24 21:39 2 UNITS Insulin Human Regular AC SC 07/06/24 07:00 07/10/24 06:13 2 UNITS Dextrose 50 ml UD PRN IV 07/06/24 01:45 Sodium Chloride 10 ml Q8HR IV 07/06/24 06:00 07/10/24 05:21 10 ML Acetaminophen/ Hydrocodone Bitart 1 tab Q4HP PRN PO 07/06/24 01:45 07/10/24 03:41 1 TAB Ondansetron HCl 4 mg Q4HP PRN IV 07/06/24 01:45 07/06/24 04:01 4 MG Docusate Sodium 100 mg BIDPRN PRN PO 07/06/24 01:45 07/08/24 14:12 100 MG Acetaminophen 650 mg Q6HP PRN PO 07/06/24 01:45 Morphine Sulfate 2 mg Q4HPRN PRN IV 07/06/24 01:45 07/06/24 04:02 2 MG Nitroglycerin 0.4 mg Q5MINP PRN SL 07/06/24 01:45 Morphine Sulfate 2 mg Q30M PRN IV 07/06/24 01:45 07/08/24 16:57 2 MG Atorvastatin Calcium 40 mg HS PO 07/06/24 22:00 07/09/24 21:33 40 MG Enoxaparin Sodium 70 mg Q12H SC 07/07/24 16:00 07/10/24 03:36 70 MG Aspirin 81 mg DAILY PO 07/08/24 10:00 07/09/24 09:51 81 MG Laboratory Results Laboratory Tests 07/07/24 06:30 07/08/24 06:42 Urinalysis Test 07/06/24 05:30 Urine Color Light-yellow (Yellow) Urine Clarity Clear (Clear) Urine pH 7.0 (5.0-9.0) Urine Specific [place] 1.015 (1.001-1.035) Urine Protein Negative (Negative) Urine Ketones 1+ (Negative) H Urine Blood Negative /uL (Negative) Urine Nitrite Negative (Negative) Urine Bilirubin Negative (Negative) Urine Urobilinogen 2 mg/dL (Negative) H Urine Leukocyte Esterase Trace /uL (Negative) Urine RBC 1 /hpf (0 - 4) Urine WBC 1 /hpf (0 - 5) Urine Squamous Epithelial Cells Few /hpf (<5) Urine Bacteria None seen /hpf (None Seen) Urine Mucus Few (None Seen) Urine Glucose Normal mg/dL (Normal) Microbiology Microbiology Date/Time Source Procedure Growth Status 07/07/24 02:20 Nose MRSA Screen - Final Complete Assessment/Plan Assessment/Plan NSTEMI Acute myocardial infarction Type 2 diabetes Hypertension Dyslipidemia Obesity Plan Heparin drip Aspirin Lipitor Plavix Cardiology consult Echo Heart catheterization tomorrow 07/07/2024: Transfer to higher level of care for CABG Lovenox Aspirin Lipitor Transfer to higher level of care once a bed is available 07/09/2024: Continue the current management pending transfer to higher level of care for CABG surgery 07/10/2024: Doing well No chest pain currently Vital signs are stable Transfer to higher level of care once a bed is available Plan discussed with: Patient Date of Service: Jul 10, 2024 Billing Provider: MANASA WU MD Common Visit Codes: NOT BILLABLE MANASA WU MD Jul 10, 2024 09:10
[2024-07-11 01:03] VITALS: BP 92/59; PULSE 69; RESP 19; TEMP 97.8; O2SAT 99
[2024-07-11 05:00] VITALS: BP 90/60; PULSE 75; RESP 17; TEMP 97.5; O2SAT 94
[2024-07-11] MEDS: NITROGLYCERIN 0.4 MG SL TAB SL PRN (06:22)
[2024-07-11 08:00] VITALS: PULSE 80
[2024-07-11 08:34] VITALS: BP 110/63; PULSE 78; RESP 16; TEMP 98.3; O2SAT 100
--- NOTE | 2024-07-11 12:03 | DVHPN2 ---
Subjective She had chest pain this morning requiring 1 nitroglycerin sublingually EKG was done showed subtle changes in the anterior leads with possible mild ST- elevation Troponin was 1350 Currently she denies any chest pain Vital signs are stable Changes from previous H/P or p: Changes Eyes: No Pain, No Vision change, No Conjunctivae inflammation, No Eyelid inflammation, No Other, No Redness ENT: No Ear pain, No Ear discharge, No Nose pain, No Nose discharge, No Nose congestion, No Mouth pain, No Mouth swelling, No Throat pain, No Throat swelling, No Other Cardiovascular: Chest Pain; No Palpitations, No Orthopnea, No Paroxysmal Noc. Dyspnea, No Edema, No Lt Headedness, No Other Respiratory: No Cough, No Dry, No Shortness of breath, No SOB with excertion, No Wheezing, No Hemoptysis, No Pleuritic Pain, No Sputum, No Other Gastrointestinal: Nausea, Vomiting; No Abdominal Pain, No Diarrhea, No Constipation, No Melena, No Hematochezia, No Other Genitourinary: No Dysuria, No Frequency, No Incontinence, No Hematuria, No Retention, No Other Musculoskeletal: No other, No neck pain, No shoulder pain, No arm pain, No back pain, No hand pain, No leg pain, No foot pain Skin: No Rash, No Lesions, No Jaundice, No Bruising, No Other Objective Vitals Vital Signs Date Time Temp Pulse Resp B/P (MAP) Pulse Ox O2 Delivery O2 Flow Rate FiO2 07/11/24 10:06 110/63 07/11/24 08:34 98.3 78 16 100 98.3 07/11/24 08:10 Room Air* 0 21 Intake/Output Intake and Output 07/11/24 07:00 Intake Total 1987 ml Balance 1987 ml Intake Oral 1988 ml # Voids 7 General Appearance: Alert, Oriented X3, Cooperative, No acute distress Lungs: Clear to auscultation, Normal air movement Cardiovascular: Regular rate, Normal S1, Normal S2, No murmurs Abdomen: Normal bowel sounds, Soft, No tenderness Extremities: No edema Medications Current Medications Medications Dose Ordered Sig/Missy Route Start Time Stop Time Status Last Admin Dose Admin Hydralazine HCl 10 mg Q6HP PRN IV 07/06/24 01:45 Amlodipine Besylate 5 mg DAILY PO 07/06/24 10:00 07/11/24 10:06 5 MG Diagnostic Test (Pha) 1 strip ACHS 07/06/24 07:00 07/11/24 11:49 1 STRIP Insulin Human Regular HS SC 07/06/24 22:00 07/09/24 21:39 2 UNITS Insulin Human Regular AC SC 07/06/24 07:00 07/11/24 11:51 3 UNITS Dextrose 50 ml UD PRN IV 07/06/24 01:45 Sodium Chloride 10 ml Q8HR IV 07/06/24 06:00 07/11/24 05:14 10 ML Acetaminophen/ Hydrocodone Bitart 1 tab Q4HP PRN PO 07/06/24 01:45 07/11/24 02:57 1 TAB Ondansetron HCl 4 mg Q4HP PRN IV 07/06/24 01:45 07/06/24 04:01 4 MG Docusate Sodium 100 mg BIDPRN PRN PO 07/06/24 01:45 07/10/24 16:59 100 MG Acetaminophen 650 mg Q6HP PRN PO 07/06/24 01:45 Morphine Sulfate 2 mg Q4HPRN PRN IV 07/06/24 01:45 07/10/24 17:08 2 MG Nitroglycerin 0.4 mg Q5MINP PRN SL 07/06/24 01:45 07/11/24 06:22 0.4 MG Morphine Sulfate 2 mg Q30M PRN IV 07/06/24 01:45 07/08/24 16:57 2 MG Atorvastatin Calcium 40 mg HS PO 07/06/24 22:00 07/10/24 21:01 40 MG Enoxaparin Sodium 70 mg Q12H SC 07/07/24 16:00 07/11/24 03:01 70 MG Aspirin 81 mg DAILY PO 07/08/24 10:00 07/11/24 10:06 81 MG Laboratory Results Laboratory Tests 07/07/24 06:30 07/08/24 06:42 Urinalysis Test 07/06/24 05:30 Urine Color Light-yellow (Yellow) Urine Clarity Clear (Clear) Urine pH 7.0 (5.0-9.0) Urine Specific [place] 1.015 (1.001-1.035) Urine Protein Negative (Negative) Urine Ketones 1+ (Negative) H Urine Blood Negative /uL (Negative) Urine Nitrite Negative (Negative) Urine Bilirubin Negative (Negative) Urine Urobilinogen 2 mg/dL (Negative) H Urine Leukocyte Esterase Trace /uL (Negative) Urine RBC 1 /hpf (0 - 4) Urine WBC 1 /hpf (0 - 5) Urine Squamous Epithelial Cells Few /hpf (<5) Urine Bacteria None seen /hpf (None Seen) Urine Mucus Few (None Seen) Urine Glucose Normal mg/dL (Normal) Microbiology Microbiology Date/Time Source Procedure Growth Status 07/07/24 02:20 Nose MRSA Screen - Final Complete Assessment/Plan Assessment/Plan NSTEMI Acute myocardial infarction Type 2 diabetes Hypertension Dyslipidemia Obesity Plan Heparin drip Aspirin Lipitor Plavix Cardiology consult Echo Heart catheterization tomorrow 07/07/2024: Transfer to higher level of care for CABG Lovenox Aspirin Lipitor Transfer to higher level of care once a bed is available 07/09/2024: Continue the current management pending transfer to higher level of care for CABG surgery 07/10/2024: Doing well No chest pain currently Vital signs are stable Transfer to higher level of care once a bed is available 07/11/2024: Continue to try to transfer the patient to higher level of care for CABG If she starts to have chest pain again we might have to transfer her to the ICU and start nitroglycerin drip Continue aspirin and Lovenox and Lipitor Discussed with Cardiology, they recommended transfer for CABG as soon as possible, we are trying multiple facilities but no beds The nurse just said now that the patient's son is going to come in take the patient AMA and take her to another hospital emergency room obesity I explained to the patient the risks from leaving AMA, she said she will talk to her son when he comes here Full code Plan discussed with: Patient, Other My Orders Orders - MANASA WU MD Procedure Category Date Status Time Electrocardigram EKG 07/11/24 Logged 08:01 Date of Service: Jul 11, 2024 Billing Provider: MANASA WU MD Common Visit Codes: NOT BILLABLE MANASA WU MD Jul 11, 2024 12:03
[2024-07-11 12:41] VITALS: BP 111/68; PULSE 67; RESP 18; TEMP 97.9; O2SAT 96
== END 2024-07-11 13:00 | disposition left against medical advice (07) | DRG 282 ==
LOC: ER 21:11 → TELE 07-06 01:32 → TELE-CENTR 07-06 09:35
PROVIDERS: ADMIT Nurse Practitioner Family; ATTEND Internal Medicine Geriatric Medicine
PROC: 4A023N7 Measurement of Cardiac Sampling and Pressure, Left Heart, Percutaneous Approach (ICD-10-PCS; principal; 2024-07-07)
PROC: B211YZZ Fluoroscopy of Multiple Coronary Arteries using Other Contrast (ICD-10-PCS; 2024-07-07)
DX: I21.4 Non-ST elevation (NSTEMI) myocardial infarction (principal); E11.9 Type 2 diabetes mellitus without complications; E78.5 Hyperlipidemia, unspecified; E66.9 Obesity, unspecified; I10 Essential (primary) hypertension; E87.6 Hypokalemia; I25.10 Atherosclerotic heart disease of native coronary artery without angina pectoris; G89.4 Chronic pain syndrome; Z53.29 Procedure and treatment not carried out because of patient's decision for other reasons; Z88.0 Allergy status to penicillin; Z90.49 Acquired absence of other specified parts of digestive tract; Z68.29 Body mass index [BMI] 29.0-29.9, adult; Z95.1 Presence of aortocoronary bypass graft
CPT/HCPCS: 36415; 71045; 80048; 80053; 80061; 81001; 82962; 83036; 83735; 83880; 84443; 84484; 85025; 85610; 85730; 87081; 93005; 93306; 93458; 99152; 99291; G0378; J1815; J2250; J2405; Q9967

== ENCOUNTER 2024-09-30 18:00 | Emergency (ER) | payer OTHER, MEDICAID ==
[~2024-09-30] VITALS: Ht 152.4 cm; Wt 64.4 kg
[2024-09-30 18:16] VITALS: BP 140/82; PULSE 105; RESP 20; O2SAT 97
--- NOTE | 2024-09-30 22:30 | ED.PDOC ---
History of Present Illness(SKN HPI Comments 69 YEAR OLD FEMALE PRESENTS TO ER FOR CLOGGED PICC LINE X 1 DAY. PATIENT STATES THAT SHE HAD A PICC LINE PLACED ON 09/01/24 TO RECEIVE IV MEDICATIONS OF "MICAFUNGIN" FOR A CHEST WALL INFECTION THAT SHE DEVELOPED S/P CABG THAT SHE HAD DONE ON 07/14/24 AND WAS SENT TO ER TODAY BY HER HOME HEALTH NURSE DUE TO CLOGGED PICC LINE THAT OCCURRED TODAY AT 4 P.M. DENIES ANY PAIN AND PRESENTS TO ER AMBULATORY ON ARRIVAL, IN NO DISTRESS. 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 History Family History Family History: Unknown Social History Smoker: Non-Smoker Alcohol: Denies ETOH Use Drugs: Denies Drug Use Lives In: Home Constitutional: denies: chills, diaphoresis, fatigue, fever, malaise, sweats, weakness, others EENTM: denies: blurred vision, double vision, ear bleeding, ear discharge, ear drainage, ear pain, ear ringing, eye pain, eye redness, hearing loss, mouth pain, mouth swelling, nasal discharge, nose bleeding, nose congestion, nose pain, photophobia, tearing, throat pain, throat swelling, voice changes, others Respiratory: denies: cough, hemoptysis, orthopnea, SOB at rest, shortness of breath, SOB with excertion, stridor, wheezing, others Cardiovascular: denies: chest pain, dizzy spells, diaphoresis, Dyspnea on exertion, edema, irregular heart beat, left arm pain, lightheadedness, palpitations, PND, syncope, others Gastrointestinal: denies: abdomen distended, abdominal pain, blood streaked bowels, constipated, diarrhea, dysphagia, difficulty swallowing, hematemesis, melena, nausea, poor appetite, poor fluid intake, rectal bleeding, rectal pain, vomiting, others Genitourinary: denies: abnormal vagina bleeding, burning, dyspareunia, dysuria, flank pain, frequency, hematuria, incontinence, pain, , vagina discharge, urgency, others Neurological: denies: dizziness, fainting, headache, left sided numbness, left sided weakness, numbness, paresthesia, pre-existing deficit, right sided numbness, right sided weakness, seizure, speech problems, tingling, tremors, weakness, others Musculoskeletal: denies: back pain, gout, joint pain, joint swelling, muscle pain, muscle stiffness, neck pain, others Integumetry: reports: others ( STATED IN HPI) Allergic/Immunocompromised: denies: Difficulty Healing, Frequent Infections, Hives, Itching, others Hematologic/Lymphatic: denies: anemia, blood clots, easy bleeding, easy bruising, swollen glands, others Endocrine: denies: excessive hunger, excessive sweating, excessive thirst, excessive urination, flushing, intolerance to cold, intolerance to heat, unexplained weight gain, unexplained weight loss, others Psychiatric: denies: anxiety, bipolar disorder, depression, hopeless, panic disorder, schizophrenia, sleepless, suicidal, others Physical Exam General Appearance: No Apparent Distress HEENT: PERRL/EOMI Neck: Full Range of Motion, Non-Tender, Normal Respiratory: Chest Non-Tender, Lungs Clear, No Accessory Muscle Use, No Respiratory Distress, Normal Breath Sounds Cardiovascular: No Murmur, No Gallop, Regular Rate/Rhythm, Other (Wound vac to substernal region of chest noted without bleeding/drainage/erythema to surrounding skin appreciated) Breast Exam: Deferred Gastrointestinal: NOT DONE Genitalia: Deferred Pelvic: Deferred Rectal: Deferred Extremities: Normal capillary refill, Normal range of motion Neurologic: Alert, 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 Was a procedure done?: No Sedation Sedation?: No Images 1 - Right-sided occluded PICC line without any signs of infection noted Differential Diagnosis (INTG) Differential Diagnosis: Abrasion Differential Diagnosis: Abscess Differential Diagnosis: Retained Foreign Body, Other (dvt) X-Ray, Labs, Meds, VS Vital Signs Date Time Temp Pulse Resp B/P (MAP) Pulse Ox O2 Delivery O2 Flow Rate FiO2 09/30/24 18:16 97.8 105 20 140/82 (101) 97 PICC line was fully unclogged by nursing staff with use of a small volume of heparin flush solution Advised to follow up with home health nurse tomorrow Advised to follow up with PCP in 1-2 days Patient verbalized understanding and agreeable with current plan of care Advised to return to ER immediately if symptoms worsen Time of 1ST Reevaluation: 22:22 Reevaluation 1ST: N/A Patient Education/Counseling: Diagnosis, Treatment, Prognosis, Need For Follow Up Family Education/Counseling: No Family Present Departure 1 Departure Time of Disposition: 22:50 Impression: Primary Impression: Occluded PICC line Qualified Codes: T82.898A - Other specified complication of vascular prosthetic devices, implants and grafts, initial encounter Disposition: HOME / SELF CARE / HOMELESS Condition: Stable e-Prescriptions No Active Prescriptions or Reported Meds Discharged With: Self Critical Care Note Critical Care Time?: No Stability Stability form required: No Heart Score Heart Score: Heart Score Response (Comments) Value History N/A 0 EKG N/A 0 Age N/A 0 Risk Factors N/A 0 Troponin N/A 0 Total 0 JAY BERNSTEIN Sep 30, 2024 22:30
[2024-09-30] MEDS ORDERED: HEPARIN IN NS 1000U/500ML (2UNIT/ML) 500 ML BAG/KIT IV ONE (22:45)
== END 2024-10-01 00:11 | disposition home or self-care (01) ==
LOC: ER 18:04
DX: T82.898A Other specified complication of vascular prosthetic devices, implants and grafts, initial encounter (principal); I10 Essential (primary) hypertension; E11.9 Type 2 diabetes mellitus without complications; Z90.49 Acquired absence of other specified parts of digestive tract; Z95.1 Presence of aortocoronary bypass graft; Z88.0 Allergy status to penicillin; Y83.2 Surgical operation with anastomosis, bypass or graft as the cause of abnormal reaction of the patient, or of later complication, without mention of misadventure at the time of the procedure
CPT/HCPCS: 99285; J1642

== ENCOUNTER 2024-10-12 22:33 | Emergency (ER) | payer OTHER, MEDICAID ==
[~2024-10-12] VITALS: Ht 152.4 cm; Wt 66.4 kg
--- NOTE | 2024-10-12 23:53 | ED.PDOC ---
History of Present Illness HPI Comments 69 y/o overweight female, with a history of CABG, 3-vessel CAD, DMII, HLD, and HTN, presents with c/o wound vacuum bag drainage and odor, today. 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 She reports on wound vacuum being placed in August 2024 after developing an infection to her incision site in her sternum following CABG s/p NSTEMI in June 2024. Both procedures were stated to have been done at [facility] in [place], [place] along with the provider overseeing her care by the name of "Dr. Flood" being there as well. Patient endorses on current at-home wound-care nurse visits and antibiotic treatment via PICC line, with 1x reported incident of occlusion with accompanying [facility] Emergency Department Visit in September 2024. She denies any fever, chills, nausea, vomiting, chest pain, shortness of breath, or other associated symptoms at this time. Chief Complaint: Wound Check Time Seen by MD: 23:30 Primary Care Provider: UNKNOWN Reviewed Notes: Nurses Notes, Medications, Allergies Allergies: Coded Allergies: Penicillins (Verified Allergy, Unknown, 03/17/24) Home Meds No Active Prescriptions or Reported Meds Information Source: Patient Mode of Arrival: Ambulatory Severity: Moderate Timing: Hours Duration: Since onset Prehospital treatment: None Past Medical History PAST MEDICAL HISTORY: CAD ( 3-vessel), DM (type II), High Lipids, HTN Past Medical History (Other): overweight Surgical History: CABG, Cholecystectomy SERVICER History: No Pertinent SERVICER History Family History Family History: Unknown Social History Smoker: Non-Smoker Alcohol: Denies ETOH Use Drugs: Denies Drug Use Lives In: Home All Other Systems: Reviewed and Negative (Comprehensive systems review obtained and negative except for what is stated in the HPI.) Physical Exam General Appearance: No Apparent Distress, Other (overweight ) HEENT: Normal ENT Inspection, Pharynx Normal, TMs Normal Neck: Full Range of Motion, Non-Tender, Normal, Normal Inspection Respiratory: Chest Non-Tender, Lungs Clear, No Respiratory Distress, Normal Breath Sounds Cardiovascular: No Edema, No JVD, No Murmur, No Gallop, Normal Peripheral Pu lses, Regular Rate/Rhythm Breast Exam: Deferred Gastrointestinal: No Organomegaly, Non Tender, No Pulsatile Mass, Normal Bowel Sounds, Soft Genitalia: Deferred Pelvic: Deferred Rectal: Deferred Extremities: No calf tenderness, Normal capillary refill, Normal inspection, Normal range of motion, Non-tender, No pedal edema Musculoskeletal : Extremity Location: Chest (sternum ) Apperance: Normal, Other (wound-vacuum in-place ) Neurologic: 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 Was a procedure done?: No Differential Dx Considerations may include: wound for management of wound vacuum X-Ray, Labs, Meds, VS Vital Signs Date Time Temp Pulse Resp B/P (MAP) Pulse Ox O2 Delivery O2 Flow Rate FiO2 10/12/24 22:51 98.9 79 16 133/83 (100) 100 98.9 Time of 1ST Reevaluation: 00:11 Reevaluation 1ST: Resolved Patient Education/Counseling: Diagnosis, Treatment Family Education/Counseling: No Family Present Additional Information Previous visit documents reviewed: July 06, 2024 and September 30, 2024 encounter for NSTEMI and occluded PICC line, respectively. The following tests were ordered, and results were reviewed by me: Additional Information was gathered from interviewing the following independent historians: n/a I reviewed and agreed with the following test results read by other providers: I discussed treatment and results with medical personnel and: Patient Departure 1 Departure Time of Disposition: 00:10 (Patient has a leak in her wound VAC from the dressing. I redressed the patient's with a new using large Tegaderms. Good suction was achieved via the wound VAC. we will discharge patient home with follow up tomorrow) Impression: Primary Impression: Encounter for management of wound VAC Disposition: 01 HOME / SELF CARE / HOMELESS Condition: Stable Additional Instructions: It is important to follow up with your wound nurse tomorrow. e-Prescriptions No Active Prescriptions or Reported Meds Discharged With: Self Critical Care Note Critical Care Time?: No Stability Stability form required: No Heart Score Heart Score: Heart Score Response (Comments) Value History N/A 0 EKG N/A 0 Age N/A 0 Risk Factors N/A 0 Troponin N/A 0 Total 0 I personally scribed for MARAL POOLE MD ([email or web address]) on 10/12/24 at 23:53. Electronically submitted by Bob Calderón [email or web address]). MARAL POOLE MD Oct 12, 2024 23:53
[2024-10-13] VITALS: BP 125/71; PULSE 74; RESP 16; TEMP 98.4; O2SAT 100
== END 2024-10-13 00:25 | disposition home or self-care (01) ==
LOC: ER 22:33
DX: Z48.817 Encounter for surgical aftercare following surgery on the skin and subcutaneous tissue (principal); I10 Essential (primary) hypertension; I25.10 Atherosclerotic heart disease of native coronary artery without angina pectoris; E78.5 Hyperlipidemia, unspecified; E11.9 Type 2 diabetes mellitus without complications; Z95.1 Presence of aortocoronary bypass graft; Z88.0 Allergy status to penicillin

== ENCOUNTER 2025-01-02 10:04 | Inpatient (IN) | payer OTHER, MEDICAID ==
[~2025-01-02] VITALS: Ht 152.4 cm; Wt 69.9 kg
--- NOTE | 2025-01-02 10:27 | ED.PDOC ---
HPI (NEURO) HPI Comments 69 y/o F, with PMHx of CAD, DM, and HLD presents to the ED for CC of dizziness. Patient states, she has been experiencing symptoms of dizziness with associated nausea x3days. Patient reports, dizziness to worsen while lying down feeling as if she is on a roller coaster. Patient denies headache, chest pain, shortness of breath, vomiting, or diarrhea. No other symptoms or modifying factors present at this time. Time Seen by MD: 10:20 Primary Care Provider: UNKNOWN Reviewed Notes: Nurses Notes, Medications, Allergies Information Source: Patient Mode of Arrival: Ambulatory Severity: Moderate Dizziness/Weakness Severity: Does not affect activitie Headache Severity: None Timing: Days Duration: Since onset Prehospital treatment: None Onset: At rest Circumstances: Spontaneous Symptoms: Vertigo Before: Normal During: Awake After: Normal Mentation History of: None Modifying factors: Change in position Associated Signs and Symptoms: Nausea Past Medical History PAST MEDICAL HISTORY: CAD, DM, High Lipids Surgical History: CABG, Cholecystectomy, Tubal Ligation CREDIT CONTROL ADMINISTRATOR History: No Pertinent CREDIT CONTROL ADMINISTRATOR History Family History Family History: Unknown Social History Smoker: Non-Smoker Alcohol: Denies ETOH Use Drugs: Denies Drug Use Lives In: Home Constitutional: denies: chills, diaphoresis, fatigue, fever, malaise, sweats, weakness, others EENTM: denies: blurred vision, double vision, ear bleeding, ear discharge, ear drainage, ear pain, ear ringing, eye pain, eye redness, hearing loss, mouth pain, mouth swelling, nasal discharge, nose bleeding, nose congestion, nose pain, photophobia, tearing, throat pain, throat swelling, voice changes, others Respiratory: denies: cough, hemoptysis, orthopnea, SOB at rest, shortness of breath, SOB with excertion, stridor, wheezing, others Cardiovascular: denies: chest pain, dizzy spells, diaphoresis, Dyspnea on exertion, edema, irregular heart beat, left arm pain, lightheadedness, palpitations, PND, syncope, others Gastrointestinal: reports: nausea; denies: abdomen distended, abdominal pain, blood streaked bowels, constipated, diarrhea, dysphagia, difficulty swallowing, hematemesis, melena, poor appetite, poor fluid intake, rectal bleeding, rectal pain, vomiting, others Genitourinary: denies: abnormal vagina bleeding, burning, dyspareunia, dysuria, flank pain, frequency, hematuria, incontinence, pain, , vagina discharge, urgency, others Neurological: reports: dizziness; denies: fainting, headache, left sided numbness, left sided weakness, numbness, paresthesia, pre-existing deficit, right sided numbness, right sided weakness, seizure, speech problems, tingling, tremors, weakness, others Musculoskeletal: denies: back pain, gout, joint pain, joint swelling, muscle pain, muscle stiffness, neck pain, others Integumetry: denies: bruises, change in color, change in hair/nails, dryness, laceration, lesions, lumps, rash, wounds, others Allergic/Immunocompromised: denies: Difficulty Healing, Frequent Infections, Hives, Itching, others Hematologic/Lymphatic: denies: anemia, blood clots, easy bleeding, easy bruising, swollen glands, others Endocrine: denies: excessive hunger, excessive sweating, excessive thirst, excessive urination, flushing, intolerance to cold, intolerance to heat, unexplained weight gain, unexplained weight loss, others Psychiatric: denies: anxiety, bipolar disorder, depression, hopeless, panic disorder, schizophrenia, sleepless, suicidal, others All Other Systems: Reviewed and Negative Physical Exam General Appearance: Moderate Distress, Obese HEENT: Normal ENT Inspection, Pharynx Normal, TMs Normal Neck: Full Range of Motion, Non-Tender, Normal, Normal Inspection Respiratory: Chest Non-Tender, Lungs Clear, No Accessory Muscle Use, No Respiratory Distress, Normal Breath Sounds Cardiovascular: No Edema, No JVD, No Murmur, No Gallop, Normal Peripheral Pulses, Regular Rate/Rhythm Breast Exam: Deferred Gastrointestinal: No Organomegaly, Non Tender, No Pulsatile Mass, Normal Bowel Sounds, Soft Genitalia: Deferred Pelvic: Deferred Rectal: Deferred Extremities: No calf tenderness, Normal capillary refill, Normal inspection, Normal range of motion, Non-tender, No pedal edema Musculoskeletal : Apperance: Normal Neurologic: Alert, furniture shampooer II-XII nml as Tested, Motor Weakness, Normal Affect, Normal Mood, No Sensory Deficits Cerebellar Function: Unable to Test Reflexes: Normal Skin: Dry, Normal Color, Warm Lymphatic: No Adenopathy EKG EKG : Pulse Rate (adult): 98 [place]: Normal Cardiac Rhythm: NSR Block: None Hypertrophy: LAE ST: Normal Was a procedure done? Was a procedure done?: No Differential Diagnosis (SZ) Seizure: N/A General Weakness: Dehydration, Electrolyte imbalance, Hypoglycemia, Hypotension, Vertigo: central, Vertigo: peripheral X-Ray, Labs, Meds, VS Vital Signs Date Time Temp Pulse Resp B/P (MAP) Pulse Ox O2 Delivery O2 Flow Rate FiO2 01/02/25 10:38 98.2 94 18 122/65 (84) 100 98.2 01/02/25 10:30 98 01/02/25 10:28 98 Lab Test 01/02/25 10:40 01/02/25 10:26 Range/Units White Blood Count 7.6 4.4-10.8 10^3/uL Red Blood Count 4.76 4.0-5.20 10^6/uL Hemoglobin 13.2 12.2-16.2 g/dL Hematocrit 39.4 36.0-46.0 % Mean Corpuscular Volume 82.8 80.0-100.0 fL Mean Corpuscular Hemoglobin 27.8 L 28.0-32.0 pg Mean Corpuscular Hemoglobin Concent 33.5 32.0-36.0 g/dL Red Cell Distribution Width 15.7 H 11.8-14.3 % Platelet Count 311 140-450 10^3/uL Mean Platelet Volume 8.2 6.9-10.8 fL Neutrophils (%) (Auto) 71.0 37.0-80.0 % Lymphocytes (%) (Auto) 20.2 10.0-50.0 % Monocytes (%) (Auto) 5.9 0.0-12.0 % Eosinophils (%) (Auto) 1.7 0.0-7.0 % Basophils (%) (Auto) 1.2 0.0-2.0 % Neutrophils # (Auto) 5.4 1.6-8.6 10 ^3/uL Lymphocytes # (Auto) 1.5 0.4-5.4 10 ^3/uL Monocytes # (Auto) 0.4 0-1.3 10 ^3/uL Eosinophils # (Auto) 0.1 0-0.8 10 ^3/uL Basophils # (Auto) 0.1 0-0.2 10 ^3/uL Nucleated Red Blood Cells 0.1 % Sodium Level 141 136-145 mmol/L Potassium Level 4.2 3.5-5.1 mmol/L Chloride Level 107 98-107 mmol/L Carbon Dioxide Level 23 20-31 mmol/L Anion Gap 11 5-15 Blood Urea Nitrogen 8 L 9-23 mg/dL Creatinine 0.72 0.550-1.02 mg/dL Glomerular Filtration Rate Calc 90 >90 mL/min BUN/Creatinine Ratio 11.1 10.0-20.0 Serum Glucose 175 H 74-106 mg/dL Calcium Level 9.9 8.7-10.4 mg/dL Troponin I High Sensitivity 8 </=34 ng/L POC Glucose 167 H 70-106 mg/dl IV Hep-Lock was established The CBC and chemistry panel is within normal limits At this time, head CAT scan is being ordered The patient is being admitted with a diagnosis of autonomic dysfunction Time of 1ST Reevaluation: 10:50 Reevaluation 1ST: Unchanged Patient Education/Counseling: Diagnosis, Treatment, Prognosis Family Education/Counseling: No Family Present Departure 1 Departure Time of Disposition: 12:01 Impression: Primary Impression: Autonomic dysfunction Disposition: ADMITTED INPATIENT Admit to: Tele Condition: Fair e-Prescriptions No Active Prescriptions or Reported Meds Critical Care Note Critical Care Time?: No Stability Stability form required: Yes Unstable for transfer: Telemetry monitoring (Telemetry monitoring required), ED Physician Assesment (Clinical assesment) Heart Score Heart Score: Heart Score Response (Comments) Value History Slightly Suspicious 0 EKG Normal 0 Age >65 2 Risk Factors 1 or 2 risk factors 1 Troponin N/A 0 Total 3 I personally scribed for JOHN HAM MD ([email or web address]) on 01/02/25 at 10:27. Electronically submitted by Mara Trevino ([email or web address]). I personally scribed for JOHN HAM MD ([email or web address]) on 01/02/25 at 10:30. Electronically submitted by Mara Trevino ([email or web address]). I personally scribed for JOHN HAM MD ([email or web address]) on 01/02/25 at 11:56. Electronically submitted by Mara Trevino ([email or web address]). JOHN HAM MD Jan 02, 2025 10:27
[2025-01-02 10:57] LABS: Basophils # (auto) 0.1 10 ^3/uL (0-0.2); Basophils % (auto) 1.2 % (0.0-2.0); Eosinophils # (auto) 0.1 10 ^3/uL (0-0.8); Eosinophils % (auto) 1.7 % (0.0-7.0); Hematocrit 39.4 % (36.0-46.0); Hemoglobin 13.2 g/dL (12.2-16.2); Lymphocytes # (auto) 1.5 10 ^3/uL (0.4-5.4); Lymphocytes % (auto) 20.2 % (10.0-50.0); Mean Corpuscular Hemoglobin 27.8 pg (28.0-32.0); Mean Corpuscular Hgb Conc. 33.5 g/dL (32.0-36.0); Mean Corpuscular Volume 82.8 fL (80.0-100.0); Monocytes # (auto) 0.4 10 ^3/uL (0-1.3); Monocytes % (auto) 5.9 % (0.0-12.0); Neutrophils # (auto) 5.4 10 ^3/uL (1.6-8.6); Nucleated Red Blood Cells % 0.1 %; Platelet Count (auto) 311 10^3/uL (140-450); Red Blood Cells 4.76 10^6/uL (4.0-5.20); Red Cell Distribution Width 15.7 % (11.8-14.3); White Blood Cell 7.6 10^3/uL (4.4-10.8)
[2025-01-02 11:03] LABS: Potassium 4.2 mmol/L (3.5-5.1); Sodium 141 mmol/L (136-145)
[2025-01-02 11:04] LABS: Anion Gap 11 (5-15); Carbon Dioxide 23 mmol/L (20-31)
[2025-01-02 11:05] LABS: Calcium 9.9 mg/dL (8.7-10.4); Chloride 107 mmol/L (98-107)
[2025-01-02 11:09] LABS: BUN/Creatinine Ratio 11.1 (10.0-20.0)
[2025-01-02 11:10] LABS: Blood Urea Nitrogen 8 mg/dL (9-23); Glucose 175 mg/dL (74-106)
--- NOTE | 2025-01-02 12:34 | DVH ---
EXAM: CT HEAD WITHOUT CONTRAST INDICATION: dizziness and ataxia TECHNIQUE: CT of the head without intravenous contrast. Radiation Dose Information: CT Dose: CTDI volume is 51.33 mGy. Dose-length product is 908.79 mGy*cm The dose indicators for CT are the volume Computed Tomography (CT) Dose Index (CTDIvol) and the Dose Length Product (DLP), and are measured in units of mGy and mGy-cm, respectively. These indicators are not patient dose, but values generated from the CT scanner acquisition factors. The report includes radiation exposure data for exposures received during this examination. COMPARISON: None FINDINGS: There is no evidence of acute intracranial hemorrhage, extra-axial collection, mass effect, midline s hift, herniation or hydrocephalus. The ventricles, sulci and cisterns are age appropriate. The mederos-white differentiation is intact. Patchy periventricular and subcortical white matter hypoattenuation is nonspecific but may be related to small vessel ischemic disease. The visualized paranasal sinuses and mastoid air cells are clear. The surrounding soft tissues and osseous structures are unremarkable. IMPRESSION: No acute intracranial abnormality.
[2025-01-02] MEDS: SODIUM CHLORIDE 0.9% 1,000 ML IV SCH (20:45)
[2025-01-02] MEDS ORDERED: MORPHINE SULFATE INJ 2 MG/ml SYRG IV PRN ×2 (20:45)
[2025-01-02] MEDS ORDERED: DOCUSATE SOD 100 MG CAP PO PRN (20:45)
[2025-01-02] MEDS ORDERED: ONDANSETRON HCL 4 MG/2 ML VIAL IV PRN (20:45)
[2025-01-02] MEDS ORDERED: NITROGLYCERIN 0.4 MG SL TAB SL PRN (20:45)
[2025-01-02] MEDS ORDERED: DEXTROSE (50%) 50ML SYRG IV PRN (21:00)
[2025-01-02 21:08] VITALS: PULSE 83; RESP 16; O2SAT 96
[2025-01-02] MEDS: MECLIZINE HCL 25 MG TAB PO SCH (21:26)
[2025-01-02] MEDS: ASPirin 81 mg TAB PO SCH (21:26)
[2025-01-02] MEDS: PANTOPRAZOLE 40 MG/10 ML VIAL INJ IV SCH (21:26)
[2025-01-02 21:41] LABS: Albumin 4.5 g/dL (3.2-4.8); Alkaline Phosphatase 91 U/L (46-116); Anion Gap 9 (5-15); Aspartate Aminotransferase 9 U/L (<34); BUN/Creatinine Ratio 14.1 (10.0-20.0); Blood Urea Nitrogen 13 mg/dL (9-23); Carbon Dioxide 27 mmol/L (20-31); Chloride 105 mmol/L (98-107); Sodium 141 mmol/L (136-145); Total Protein 7.3 g/dL (5.7-8.2)
[2025-01-02 21:42] LABS: Alanine Aminotransferase < 9 U/L (7-40); Bilirubin, Total 0.5 mg/dL (0.2-1.0); Glucose 243 mg/dL (74-106)
[2025-01-02 21:42] LABS: Triglycerides 124 mg/dL (< 150)
[2025-01-02 21:44] LABS: Cholesterol 148 mg/dL (< 200)
[2025-01-02 21:46] LABS: Lactic Acid w/Reflex 2.1 mmol/L (0.4-2.0)
[2025-01-02 21:46] LABS: HDL Cholesterol 35 mg/dL (40-59); LDL Cholesterol 102 mg/dL (< 100)
[2025-01-02] MEDS: ATORVASTATIN 20 MG TAB PO SCH (22:07)
--- NOTE | 2025-01-02 22:45 | DVH ---
Carotid Duplex Date: 01/02/2025 09:23 PM Clinical History: rule out hemodynamically significant stenosis Comparison: None Technique: Duplex Doppler evaluation of the extracranial carotid and vertebral arteries including col or Doppler and spectral/pulsed waveform analysis was performed. Findings: RIGHT SIDE: The peak systolic velocities are 51 cm/s in the distal CCA and 71 cm/s in the proximal ICA.The ICA/CC A ratio is less than 2. The external carotid artery is patent with peak systolic velocity of 56 cm/s proximally. There is appropriate antegrade flow in the right vertebral artery. LEFT SIDE: The peak systolic velocities are 63 cm/s in the distal CCA and 69 cm/s in the proximal ICA.. The ICA/ CCA ratio is less than 2. The external carotid artery is patent with peak systolic velocity of 65 cm/s proximally. There is appropriate antegrade flow in the left vertebral artery. IMPRESSION: 1. No hemodynamically significant stenosis noted in the right carotid system. 2. No hemodynamically significant stenosis noted in the left carotid system. 3. Reference: Radiology 2003; 229:[id number]
--- NOTE | 2025-01-02 22:57 | DVH ---
CHEST RADIOGRAPH Indication: rule out intrathoracic pathology Technique: Single frontal view of the chest was obtained Comparison: XY CHEST PORTABLE on DOS: 07/05/24, XY CHEST PORTABLE on DOS: 06/12/24 FINDINGS: Lines and Tubes: Sternal wire sutures in place. Lungs: No focal consolidation. Pleura: No effusion. No pneumothorax. Cardiomediastinal contours: Unremarkable Bones: No acute osseous abnormality. IMPRESSION: 1. No acute cardiopulmonary disease.
[2025-01-02] MEDS: LACTATED RINGER'S 1,350 ML IV ONE (23:28)
[2025-01-03] VITALS (7 sets, daily range): BP systolic 135–149; BP diastolic 73–76; PULSE 65–98; RESP 16–22; TEMP 96.6–98.7; O2SAT 95–98
[2025-01-03] MEDS: InsuLIN REG 1unit/0.01ml Soln (100units/ml) SC SCH
[2025-01-03] MEDS: ACCU-CHEK COMFORT CURVE STRIP VI SCH
--- NOTE | 2025-01-03 03:39 | DVHHPRES ---
History of Present Illness Resident Creating Document: RENITA GAUTHIER RESIDENT History of Present Illness Ms. Ellington, a 69-year-old female with a past medical history of coronary artery disease (CAD), diabetes mellitus (DM), and hyperlipidemia (HLD), hypertension, heart failure with reduced ejection fraction (EF 35%), peripheral neuropathy, Surgical history of CABG, Cholecystectomy & Tubal Ligation Underwent two open-heart surgeries, first in June 2024 CABG and again in August 2024, due to postoperative infection. presents to the ED with a 3-day history of dizziness associated with nausea. She describes the dizziness as a vertiginous sensation, worsened by lying down, likening it to being on a roller coaster. Symptoms began spontaneously at rest and have been persistent since onset with no modifying factors except for positional changes. She denies headache, chest pain, shortness of breath, vomiting, dehydration or diarrhea; mental status rem ains normal before, during, and after episodes. She arrived ambulatory, reports moderate symptom severity, and states that the dizziness does not interfere with daily activities. No prehospital treatment was administered. Past Medical History coronary artery disease (CAD), diabetes mellitus (DM), and hyperlipidemia (HLD), hypertension, heart failure with reduced ejection fraction (EF 35%), peripheral neuropathy, Past Surgical History Surgical history of CABG, Cholecystectomy & Tubal Ligation Underwent two open- heart surgeries, first in June 2024 CABG and again in August 2024, due to postoperative infection Family History: None, Other ([place]) Smoke: No ALCOHOL: none Drugs: None Lives: with Family Domestic Violence: Neg Review of Systems Constitutional: No: Fever, Chills, Sweats, Weakness, Malaise, Other Eyes: No: Pain, Vision change, Conjunctivae inflammation, Eyelid inflammation, Other, Redness ENT: No: Ear pain, Ear discharge, Nose pain, Nose discharge, Nose congestion, Mouth pain, Mouth swelling, Throat pain, Throat swelling, Other Respiratory: No: Cough, Dry, Shortness of breath, SOB with excertion, Wheezing, Hemoptysis, Pleuritic Pain, Sputum, Wheezing, Other Cardiovascular: No: Chest Pain, Palpitations, Orthopnea, Paroxysmal Noc. Dyspnea, Edema, Lt Headedness, Other Gastrointestinal: No: Nausea, Vomiting, Abdominal Pain, Diarrhea, Constipation, Melena, Hematochezia, Other Genitourinary: No Dysuria, No Frequency, No Incontinence, No Hematuria, No Retention, No Other Musculoskeletal: No: other, neck pain, shoulder pain, arm pain, back pain, hand pain, leg pain, foot pain Skin: No: Rash, Lesions, Jaundice, Bruising, Other Neurological: Other (Acute onset of vertigo, mostly positional. Patient's mobility intact, no change in mobility. No focal neurological deficit); No: Weakness, Numbness, Incoordination, Change in speech, Confusion, Seizures Allergies: Coded Allergies: Penicillins (Verified Allergy, Unknown, 03/17/24) Medications Current Medications Medications Dose Ordered Sig/Missy Route Start Time Stop Time Status Last Admin Dose Admin Sodium Chloride 1,000 ml @ 60 mls/hr [id number] IV 01/02/25 20:45 Ondansetron HCl 4 mg Q4HP PRN IV 01/02/25 20:45 Docusate Sodium 100 mg BIDPRN PRN PO 01/02/25 20:45 Acetaminophen 650 mg Q6HP PRN PO 01/02/25 20:45 Morphine Sulfate 2 mg Q4HPRN PRN IV 01/02/25 20:45 Nitroglycerin 0.4 mg Q5MINP PRN SL 01/02/25 20:45 Morphine Sulfate 2 mg Q30M PRN IV 01/02/25 20:45 Meclizine HCl 25 mg TID PO 01/02/25 22:00 01/02/25 21:26 25 MG Aspirin 81 mg DAILY PO 01/02/25 21:00 01/02/25 21:26 81 MG Atorvastatin Calcium 40 mg HS PO 01/02/25 22:00 01/02/25 22:07 40 MG Pantoprazole Sodium 40 mg DAILY IV 01/02/25 21:00 01/02/25 21:26 40 MG Diagnostic Test (Pha) 1 strip Q6HR 01/03/25 00:00 01/03/25 00:00 1 STRIP Insulin Human Regular Q6HR SC 01/03/25 00:00 01/03/25 00:00 2 UNITS Dextrose 50 ml UD PRN IV 01/02/25 21:00 Exam Vital Signs Vital Signs Date Time Temp Pulse Resp B/P (MAP) Pulse Ox O2 Delivery O2 Flow Rate FiO2 01/02/25 21:08 83 16 96 Room Air* 0 21 01/02/25 21:04 98.2 141/76 (97) 98.2 General Appearance: Alert, Oriented X3, Cooperative, No acute distress HEENT: Atraumatic, PERRLA, EOMI, Mucous membr. moist/pink Respiratory: Clear to auscultation, Normal air movement, Other (Breathing comfortably in the room air) Cardiovascular: Regular rate, Normal S1, Normal S2, No murmurs, Other (Chest examination reveals no complications redness or discharge in the surgical incisional area) Abdominal: Normal bowel sounds, Soft, No tenderness, No hepatospenomegaly, No masses, Other (No changes) Extremities: No clubbing, No cyanosis, No edema, Normal pulses, No tenderness/swelling, Other (Surgical scar of vascular grafting) Skin: No rashes, No breakdown, No significant lesion Neuro: Normal gait, Normal speech, Strength at 5/5 X4 ext, Normal tone, Sensation intact, Cranial nerves 3-12 NL, Reflexes 2+, Other (No focal neurological deficits. No gross changes in bone conduction, air conduction or auditory functions. Posterior column and cerebellar functions intact.) Psych/Mental Status: Mental status NL, Mood NL Labs/Xrays Labs Test 01/02/25 23:14 01/02/25 21:09 01/02/25 10:40 01/02/25 10:26 Range/Units Lactic Acid Level 1.3 0.4-2.0 mmol/L Sodium Level 141 136-145 mmol/L Potassium Level 4.0 3.5-5.1 mmol/L Chloride Level 105 98-107 mmol/L Carbon Dioxide Level 27 20-31 mmol/L Anion Gap 9 5-15 Blood Urea Nitrogen 13 9-23 mg/dL Creatinine 0.92 0.550-1.02 mg/dL Glomerular Filtration Rate Calc 67 >90 mL/min BUN/Creatinine Ratio 14.1 10.0-20.0 Serum Glucose 243 H 74-106 mg/dL Calcium Level 10.0 8.7-10.4 mg/dL Total Bilirubin 0.5 0.2-1.0 mg/dL Aspartate Amino Transferase (AST) 9 <34 U/L Alanine Aminotransferase (ALT) < 9 7-40 U/L Alkaline Phosphatase 91 46-116 U/L Total Protein 7.3 5.7-8.2 g/dL Albumin 4.5 3.2-4.8 g/dL White Blood Count 7.6 4.4-10.8 10^3/uL Red Blood Count 4.76 4.0-5.20 10^6/uL Hemoglobin 13.2 12.2-16.2 g/dL Hematocrit 39.4 36.0-46.0 % Mean Corpuscular Volume 82.8 80.0-100.0 fL Mean Corpuscular Hemoglobin 27.8 L 28.0-32.0 pg Mean Corpuscular Hemoglobin Concent 33.5 32.0-36.0 g/dL Red Cell Distribution Width 15.7 H 11.8-14.3 % Platelet Count 311 140-450 10^3/uL Mean Platelet Volume 8.2 6.9-10.8 fL Neutrophils (%) (Auto) 71.0 37.0-80.0 % Lymphocytes (%) (Auto) 20.2 10.0-50.0 % Monocytes (%) (Auto) 5.9 0.0-12.0 % Eosinophils (%) (Auto) 1.7 0.0-7.0 % Basophils (%) (Auto) 1.2 0.0-2.0 % Neutrophils # (Auto) 5.4 1.6-8.6 10 ^3/uL Lymphocytes # (Auto) 1.5 0.4-5.4 10 ^3/uL Monocytes # (Auto) 0.4 0-1.3 10 ^3/uL Eosinophils # (Auto) 0.1 0-0.8 10 ^3/uL Basophils # (Auto) 0.1 0-0.2 10 ^3/uL Nucleated Red Blood Cells 0.1 % Hemoglobin A1c 6.8 H <5.7 % A1C Troponin I High Sensitivity 8 </=34 ng/L Triglycerides Level 124 < 150 mg/dL Cholesterol Level 148 < 200 mg/dL LDL Cholesterol 102 H < 100 mg/dL HDL Cholesterol 35 L 40-59 mg/dL Thyroid Stimulating Hormone (TSH) 3.07 0.55-4.78 uIU/mL Plasma/Serum Blood Alcohol < 3.0 <10 mg/dL POC Glucose 167 H 70-106 mg/dl Assessment/Plan Assessment/Plan # acute onset of new positional vertigo, without loss of consciousness, broad differentials include Brain tumors (e.g., cerebellopontine angle tumors), Vestibular migraine, Benign Paroxysmal Positional Vertigo (BPPV), Vestibular neuritis (likely post-viral), Labyrinthitis, Meniere's disease, Caterina lymphatic fistula, Ototoxicity to meds/aminoglycosides, Orthostatic hypotension, Cardiac arrhythmias, Psychogenic causes, B12 def and moderate dehydaration. # Likely BPPV, new onset of vertigo /dizziness, with change of position patient feels room spinning around comparatively narrow differential diagnosis include, fall precautions, meclizine 25 t.i.d, Albertina-Hallpike Positive, orthostatic vitals, interval neuro exam and MRI pending. # History of STEMI around June 2024, check EKG, denies any chest pain, CVS exam unremarkable , trend troponin. # Heart failure with reduced ejection fraction (HFrEF), follows primary care, not closely following director regulatory agency. Patient is not on GDM T, last echo 2023 lvef 35-40%: Repeat echo. # Known moderate LV dysfunction + left atrium enlarged: Interval change to evaluate in TTE # CAD status post CABG at [facility] [place], [place] s/p multiple stents. check EKG, keep on telemetry to rule out paroxysmal arrhythmias # Type 2 diabetes mellitus, moderately controlled HbA1c 6.8, not on insulin, at home on metformin 850 b.i.d> recently reduced to 500 bid. SSI continue. [place] BG in-hospital 140-180 as per nice sugar trial # dyslipidemia on statin: Review HbA1c and lipid profile for risk stratification # prior history of obesity, continue lifestyle modification and weight loss. # Essential hypertension: [place] blood pressure 130/80 or below as per AHA, restart home medications when tolerated # Overweight with BMI of 29.3, mild dyslipidemia, weight loss and lifestyle modification outpatient guillen to continue. # Stroke or TIA (especially vertebrobasilar territory) to rule out, CT negative except chronic small vessel ischemic disease, carotid Doppler bilateral unremarkable. MRI pending. aspirin 81 mg plus atorvastatin 40 mg daily to continue. Fall precaution / aspiration precautions / seizure precautions to continue. Physical therapy eval pending. # Lactic acidosis: Could be secondary due to oral metformin, holdin.1> improved to 1.3 status post IV hydration. rule out infectious causes and ischemic/vascular compromise: Urinalysis, CXR unremarkable so far afebrile, hemodynamically stable, in room air, BP well maintained. # GI prophylaxis with IV pantoprazole # peripheral neuropathy, secondary to longstanding diabetes: Diabetic foot care, interval skin checks, continue gabapentin 600 b.i.d after secondary causes of TIA/ Vertigo # Chronic constipation, as needed laxatives, when patient starts oral diet. BM, BS+ abdominal examination unremarkable. # diabetic Gastroparesis, clinically ruled out # Surgical history of CABG, Cholecystectomy & Tubal Ligation, unremarkable GI symptoms # Borderline QTC prolongation history, avoid QT prolonging drugs, repeat EKG, check and correct electrolytes keep the mg >2. # known penicillin allergy: At this time no need of antibiotics, avoid # Underwent two open-heart surgeries, first in June 2024 and again in August 2024, due to postoperative infection: wbc unremarkable, no chest pain or sternal tenderness, blood culture to rule out septic embolic pathologies (negative Barlow's) PCP: Dr. Ceballos Case discussed with Dr. Cardona. Code Status: Full Code, goals of care discussion along with plan of care 35 minutes bedside. Patient admitted in hospital for further workup and management. Agreeable to the plan. Will wait for further workup before considering neurology consult. Plan discussed with: Patient My Orders Orders - RENITA GAUTHIER RESIDENT Procedure Category Date Status Time Admit ADMIT 01/02/25 Transmitted 20:39 Allergies ZARI 01/02/25 In Process 20:39 Code Status CODE 01/02/25 Transmitted 20:39 Sodium Chloride 0.9% PHA 01/02/25 In Process 20:45 Ondansetron Hcl PHA 01/02/25 In Process (Zofran) 20:45 Docusate Sodium PHA 01/02/25 In Process Capsule (Colace 20:45 Fall Risk Precautions ZARI 01/02/[address] 20:39 Complete Blood Count LAB 01/03/25 Logged 04:00 Comprehensive LAB 01/03/25 Logged Metabolic Panel 04:00 Npo (Nothing By DIET 01/03/25 Transmitted Mouth) Diet Breakfast Pt Request For Service PT 01/02/25 Logged 20:39 Echo 2d Mode Cardiac US 01/02/25 Logged DOP 20:39 Carotid Duplx W Color US 01/02/25 Resulted DOP 20:39 Condition: Serious ZARI 01/02/25 In Process 20:39 Acetaminophen Tablet PHA 01/02/25 In Process (Tylenol Tablet) 20:45 Bedrest With Bathroom ZARI 01/02/25 In Process Privileg 20:39 Morphine Sulfate PHA 01/02/25 In Process Injection 20:45 Sequential ZARI 01/02/25 In Process Compression Device Nitroglycerin PHA 01/02/25 In Process Sublingual (Ntrostat 20:45 Morphine Sulfate PHA 01/02/25 In Process Injection 20:45 Oxygen By Nasal RT 01/02/25 Transmitted Cannula 20:39 Stat Ekg For Chest ZARI 01/02/25 In Process Pain 20:39 Notify Of Changes ZARI 01/02/25 In Process From Base 20:39 Inclusion Specialist For ZARI 01/02/25 In Process 24 Hours 20:39 Emergency Dysrhythmia ZARI 01/02/25 In Process Protocol 20:39 Rhythm Strips Once ZARI 01/02/25 In Process Every Shift 20:39 Meclizine Tablet PHA 01/02/25 In Process (Antivert Tablet) 22:00 Drug Screen LAB 01/02/25 Logged 20:45 Vitamin B12 LAB 01/02/25 In Process 20:45 Aspirin Tablet PHA 01/02/25 In Process 21:00 Pantoprazole PHA 01/02/25 In Process (Protonix) 21:00 Orthostatic Vital ED NURSING 01/02/25 Transmitted Signs Chest Xray 1 View XY 01/02/25 Resulted 20:57 Glucose Blood PHA 01/03/25 In Process (Accu-Chek Comfort 00:00 Insulin R (Human) PHA 01/03/25 In Process (Insulin R) 00:00 Dextrose 50% Syringe PHA 01/02/25 In Process 21:00 Brain Head Wo Contrast MRI 01/03/25 Logged 07:00 Record Ekg ZARI 01/03/25 In Process 02:47 B-Type Natriuretic LAB 01/03/25 Logged Peptide 02:47 Troponin-I Hs LAB 01/03/25 Logged 02:47 Troponin-I Hs LAB 01/03/25 Logged 03:47 Troponin-I Hs LAB 01/03/25 Logged 05:47 Communication Order ORDERS 01/03/25 Transmitted 03:16 Magnesium LAB 01/03/25 Logged 04:00 Atorvastatin (Lipitor) PHA 01/03/25 In Process 22:00 Blood Culture BETTINA 01/03/25 Logged 03:24 Date of Service: Jan 02, 2025 Billing Provider: ARSENIO CARDONA MD Common Visit Codes: [id number] INP/OBS CARE (HIGH) Secondary Visit Codes: [id number] CARE PLAN 30 MINUTES RENITA GAUTHIER RESIDENT Jan 03, 2025 03:39
[2025-01-03 05:53] LABS: Basophils # (auto) 0.1 10 ^3/uL (0-0.2); Basophils % (auto) 0.9 % (0.0-2.0); Eosinophils # (auto) 0.2 10 ^3/uL (0-0.8); Eosinophils % (auto) 2.7 % (0.0-7.0); Hematocrit 39.9 % (36.0-46.0); Hemoglobin 13.3 g/dL (12.2-16.2); Lymphocytes # (auto) 3.1 10 ^3/uL (0.4-5.4); Lymphocytes % (auto) 36.8 % (10.0-50.0); Mean Corpuscular Hemoglobin 27.9 pg (28.0-32.0); Mean Corpuscular Hgb Conc. 33.5 g/dL (32.0-36.0); Mean Corpuscular Volume 83.3 fL (80.0-100.0); Monocytes # (auto) 0.7 10 ^3/uL (0-1.3); Neutrophils # (auto) 4.3 10 ^3/uL (1.6-8.6); Neutrophils % (auto) 51.6 % (37.0-80.0); Nucleated Red Blood Cells % 0.2 %; Platelet Count (auto) 249 10^3/uL (140-450); Red Blood Cells 4.79 10^6/uL (4.0-5.20); Red Cell Distribution Width 15.4 % (11.8-14.3); White Blood Cell 8.3 10^3/uL (4.4-10.8)
[2025-01-03 07:38] LABS: Calcium 10.1 mg/dL (8.7-10.4); Carbon Dioxide 25 mmol/L (20-31)
[2025-01-03 07:39] LABS: Anion Gap 11 (5-15); Chloride 104 mmol/L (98-107); Sodium 140 mmol/L (136-145)
[2025-01-03 07:44] LABS: Alkaline Phosphatase 85 U/L (46-116); Glucose 139 mg/dL (74-106); Magnesium 2.1 mg/dL (1.6-2.6); Potassium 4.2 mmol/L (3.5-5.1)
[2025-01-03 07:52] LABS: Albumin 4.3 g/dL (3.2-4.8); Aspartate Aminotransferase 12 U/L (<34); Bilirubin, Total 0.6 mg/dL (0.2-1.0)
[2025-01-03] MEDS ORDERED: MECLIZINE HCL 25 MG TAB PO SCH (08:30)
[2025-01-03 09:46] LABS: Alanine Aminotransferase < 9 U/L (7-40); BUN/Creatinine Ratio 20.5 (10.0-20.0); Blood Urea Nitrogen 15 mg/dL (9-23)
[2025-01-03 11:50] LABS: Urine Bacteria None Seen /hpf (None Seen)
[2025-01-03 12:04] LABS: Urine Blood Negative /uL (Negative); Urine Clarity Clear (Clear); Urine Color Light-Yellow (Yellow); Urine Protein, UAD Negative (Negative); Urine Specific Gravity 1.007 (1.001-1.035); Urine Squamous Epithelial Cell None Seen /hpf (<5); Urine Urobilinogen Normal (Negative); Urine WBC 1 /HPF (0-5); Urine pH 6.5 (5.0-9.0)
[2025-01-03 12:14] LABS: Amphetamine Screen, Urine Neg (NEGATIVE); Barbiturate Scree,Urine Neg (NEGATIVE); Benzodiazephine Screen, Urine Neg (NEGATIVE); Cannabinoid Screen, Urine Neg (NEGATIVE); Cocaine Screen, Urine Neg (NEGATIVE); Opiate Scree,Urine Neg (NEGATIVE); Phencyclidine Screen, Urine Neg (NEGATIVE)
[2025-01-03] MEDS: MECLIZINE HCL 25 MG TAB PO SCH (14:40)
--- NOTE | 2025-01-03 14:56 | DVHPN2 ---
Subjective still feeling dizziness Reviewed: H&P, Labs Changes from previous H/P or p: No Changes Eyes: No Pain, No Vision change, No Conjunctivae inflammation, No Eyelid inflammation, No Other, No Redness ENT: No Ear pain, No Ear discharge, No Nose pain, No Nose discharge, No Nose congestion, No Mouth pain, No Mouth swelling, No Throat pain, No Throat swelling, No Other Cardiovascular: No Chest Pain, No Palpitations, No Orthopnea, No Paroxysmal Noc. Dyspnea, No Edema, No Lt Headedness, No Other Respiratory: No Cough, No Dry, No Shortness of breath, No SOB with excertion, No Wheezing, No Hemoptysis, No Pleuritic Pain, No Sputum, No Other Gastrointestinal: No Nausea, No Vomiting, No Abdominal Pain, No Diarrhea, No Constipation, No Melena, No Hematochezia, No Other Genitourinary: No Dysuria, No Frequency, No Incontinence, No Hematuria, No Retention, No Other Musculoskeletal: No other, No neck pain, No shoulder pain, No arm pain, No back pain, No hand pain, No leg pain, No foot pain Skin: No Rash, No Lesions, No Jaundice, No Bruising, No Other Objective Vitals Vital Signs Date Time Temp Pulse Resp B/P (MAP) Pulse Ox O2 Delivery O2 Flow Rate FiO2 01/03/25 08:15 96.6 98 22 145/75 (98) 97 96.6 01/03/25 07:37 Room Air* 0 21 General Appearance: Alert, Oriented X3 HEENT: Atraumatic Lungs: Clear to auscultation Cardiovascular: Regular rate, Normal S1, Normal S2 Medications Current Medications Medications Dose Ordered Sig/Missy Route Start Time Stop Time Status Last Admin Dose Admin Sodium Chloride 1,000 ml @ 60 mls/hr [id number] IV 01/02/25 20:45 01/03/25 08:54 60 MLS/HR Ondansetron HCl 4 mg Q4HP PRN IV 01/02/25 20:45 Docusate Sodium 100 mg BIDPRN PRN PO 01/02/25 20:45 Acetaminophen 650 mg Q6HP PRN PO 01/02/25 20:45 Morphine Sulfate 2 mg Q4HPRN PRN IV 01/02/25 20:45 Nitroglycerin 0.4 mg Q5MINP PRN SL 01/02/25 20:45 Morphine Sulfate 2 mg Q30M PRN IV 01/02/25 20:45 Aspirin 81 mg DAILY PO 01/02/25 21:00 01/03/25 08:24 81 MG Pantoprazole Sodium 40 mg DAILY IV 01/02/25 21:00 01/03/25 08:24 40 MG Diagnostic Test (Pha) 1 strip Q6HR 01/03/25 00:00 01/03/25 11:51 1 STRIP Insulin Human Regular Q6HR SC 01/03/25 00:00 01/03/25 00:00 2 UNITS Dextrose 50 ml UD PRN IV 01/02/25 21:00 Atorvastatin Calcium 80 mg HS PO 01/03/25 22:00 Meclizine HCl 50 mg BID PO 01/03/25 13:30 01/03/25 14:40 50 MG Laboratory Results Laboratory Tests 01/03/25 04:55 01/03/25 07:15 Chemistry Test 01/02/25 21:09 01/03/25 07:15 Albumin 4.5 g/dL (3.2-4.8) 4.3 g/dL (3.2-4.8) Calcium Level 10.0 mg/dL (8.7-10.4) 10.1 mg/dL (8.7-10.4) Total Protein 7.3 g/dL (5.7-8.2) 7.0 g/dL (5.7-8.2) Magnesium Level 2.1 mg/dL (1.6-2.6) Cardiac Markers Test 01/03/25 04:55 B-Type Natriuretic Peptide 90.13 pg/mL (0-100) LFT Test 01/02/25 21:09 01/03/25 07:15 Alanine Aminotransferase (ALT) < 9 U/L (7-40) < 9 U/L (7-40) Alkaline Phosphatase 91 U/L (46-116) 85 U/L (46-116) Aspartate Amino Transferase (AST) 9 U/L (<34) 12 U/L (<34) Total Bilirubin 0.5 mg/dL (0.2-1.0) 0.6 mg/dL (0.2-1.0) Urinalysis Test 01/03/25 11:16 Urine Color Light-yellow (Yellow) Urine Clarity Clear (Clear) Urine pH 6.5 (5.0-9.0) Urine Specific [place] 1.007 (1.001-1.035) Urine Protein Negative (Negative) Urine Ketones Negative (Negative) Urine Blood Negative /uL (Negative) Urine Nitrite Negative (Negative) Urine Bilirubin Negative (Negative) Urine Urobilinogen Normal mg/dL (Negative) Urine Leukocyte Esterase Negative /uL (Negative) Urine RBC <1 /hpf (0 - 4) Urine Microscopic WBC 1 /HPF (0-5) Urine Squamous Epithelial Cells None seen /hpf (<5) Urine Bacteria None seen /hpf (None Seen) Urine Glucose Normal mg/dL (Normal) Assessment/Plan Assessment/Plan # acute onset of new positional vertigo, without loss of consciousness, broad differentials include Brain tumors (e.g., cerebellopontine angle tumors), Vestibular migraine, Benign Paroxysmal Positional Vertigo (BPPV), Vestibular neuritis (likely post-viral), Labyrinthitis, Meniere's disease, Caterina lymphatic fistula, Ototoxicity to meds/aminoglycosides, Orthostatic hypotension, Cardiac arrhythmias, Psychogenic causes, B12 def and moderate dehydaration. # Likely BPPV, new onset of vertigo /dizziness, with change of position patient feels room spinning around comparatively narrow differential diagnosis include, fall precautions, meclizine 25 t.i.d, Albertina-Hallpike Positive, orthostatic vitals, interval neuro exam and MRI pending. # History of STEMI around June 2024, check EKG, denies any chest pain, CVS exam unremarkable , trend troponin. # Heart failure with reduced ejection fraction (HFrEF), follows primary care, not closely following software intern. Patient is not on GDM T, last echo 2023 lvef 35-40%: Repeat echo. # Known moderate LV dysfunction + left atrium enlarged: Interval change to evaluate in TTE # CAD status post CABG at [facility] [place] s/p multiple stents. check EKG, keep on telemetry to rule out paroxysmal arrhythmias # Type 2 diabetes mellitus, moderately controlled HbA1c 6.8, not on insulin, at home on metformin 850 b.i.d> recently reduced to 500 bid. SSI continue. [place] BG in-hospital 140-180 as per nice sugar trial # dyslipidemia on statin: Review HbA1c and lipid profile for risk stratification # prior history of obesity, continue lifestyle modification and weight loss. # Essential hypertension: [place] blood pressure 130/80 or below as per AHA, restart home medications when tolerated # Overweight with BMI of 29.3, mild dyslipidemia, weight loss and lifestyle modification outpatient guillen to continue. # Stroke or TIA (especially vertebrobasilar territory) to rule out, CT negative except chronic small vessel ischemic disease, carotid Doppler bilateral unremarkable. MRI pending. aspirin 81 mg plus atorvastatin 40 mg daily to continue. Fall precaution / aspiration precautions / seizure precautions to continue. Physical therapy eval pending. # Lactic acidosis: Could be secondary due to oral metformin, holdin.1> improved to 1.3 status post IV hydration. rule out infectious causes and ischemic/vascular compromise: Urinalysis, CXR unremarkable so far afebrile, hemodynamically stable, in room air, BP well maintained. # GI prophylaxis with IV pantoprazole # peripheral neuropathy, secondary to longstanding diabetes: Diabetic foot care, interval skin checks, continue gabapentin 600 b.i.d after secondary causes of TIA/ Vertigo # Chronic constipation, as needed laxatives, when patient starts oral diet. BM, BS+ abdominal examination unremarkable. # diabetic Gastroparesis, clinically ruled out # Surgical history of CABG, Cholecystectomy & Tubal Ligation, unremarkable GI symptoms # Borderline QTC prolongation history, avoid QT prolonging drugs, repeat EKG, check and correct electrolytes keep the mg >2. # known penicillin allergy: At this time no need of antibiotics, avoid # Underwent two open-heart surgeries, first in June 2024 and again in August 2024, due to postoperative infection: wbc unremarkable, no chest pain or sternal tenderness, blood culture to rule out septic embolic pathologies (negative Barlow's) Plan discussed with: Patient My Orders Orders - PAIGE VANN MD Procedure Category Date Status Time Meclizine Tablet PHA 01/03/25 In Process (Antivert Tablet) 13:30 Consistent DIET 01/03/25 Transmitted Carb(Ccho)Diabetes Dinner Date of Service: Jan 03, 2025 Billing Provider: PAIGE VANN MD Common Visit Codes: [id number] INP/OBS CARE(HIGH) PAIGE VANN MD Jan 03, 2025 14:56
--- NOTE | 2025-01-03 15:08 | DVH ---
PROCEDURE: MRI BRAIN HEAD WO CONTRAST Indication: Stroke vs TIA COMPARISON: 2024 TECHNIQUE: Multiplanar multisequence images of the brain are obtained. FINDINGS: There is no abnormal diffusion restriction. Mild periventricular and subcortical white matter T2/FLAI R hyperintense changes. There is no intracranial hemorrhage. No extra-axial fluid collection, mass ef fect or midline shift. The ventricles are midline and normal in size. The cisterns are patent. Normal intracranial flow voids are preserved. No abnormal susceptibility signal. Ethmoid, bilateral maxillary sinus disease most pronounced within the bilateral maxillary sinuses. No significant mastoid effusion. The visualized orbits are unremarkable. IMPRESSION: No acute cerebrovascular ischemia. Mild chronic microvascular ischemic Changes. Paranasal sinus disease.
[2025-01-03] MEDS: ATORVASTATIN 20 MG TAB PO SCH (21:07)
[2025-01-04 01:00] VITALS: BP 128/71; PULSE 80; RESP 18; TEMP 97.9; O2SAT 98
[2025-01-04 05:00] VITALS: BP 129/82; PULSE 81; RESP 18; TEMP 98.9; O2SAT 97
[2025-01-04] MEDS: ACETAMINOPHEN 325 MG TAB PO PRN (06:26)
[2025-01-04 08:00] VITALS: PULSE 79; PULSE 88; RESP 18; O2SAT 97
[2025-01-04 09:00] VITALS: BP 114/70; PULSE 79; RESP 18; TEMP 98.1; O2SAT 97
[2025-01-04 13:00] VITALS: BP 110/73; PULSE 80; RESP 17; TEMP 98.2; O2SAT 96
--- NOTE | 2025-01-04 15:30 | DVHSR ---
APPROVED REPORT EXAM: Two-dimensional and M-mode echocardiogram with Doppler, color Doppler and Bubble Study. Blood Pressure: 140/73 mmHg INDICATION Rule out PFO and structural heart disease RISK FACTORS Height: 5'0", Weight: 150 DIMENSIONS LVDd (3.8-5.7cm)LA (2D)3.6 (1.9-4.0cm)Aortic Root (2.0-3.7cm) EF (%) 30.0 (55-70%)Rt. Atrium3.5 (1.9-4.0cm)Asc. Aorta cm Mitral Valve MitralMitral Stenosis E wave0.47m/sMV Mean GR.mmHg A wave0.91m/sMV Peak GR.mmHg E/A ratio0.52D MVAcm2 DECEL [id number] 1/2 Timems Aortic Valve Aortic ValveAortic Stenosis V10.65m/Joss Mean GR.2mmHg V21.07m/Joss Peak GR.5mmHg LVOT Diameter1.9 (1.8-2.4cm)Doppler AVA1.72cm2 ATRIA Injection of bubbles documented no interatrial shunt. Other Information Quality : Technically LimitedRhythm : Technically limited study due to body habitus, unable to obtain parasternal images due to chest woun d and bandage covering area. Conclusion Technically difficult study, difficult acoustic wintdows. Enlarged LV Normal Valves. Left ventricular systolic performance is diminished. EF is about 35- 40%. Normal right ventricular function. Doppler reveals mild aortic insufficiency. No pericardial effusion masses or vegetations discernible.
[2025-01-04 16:29] VITALS: BP 114/70; PULSE 79; RESP 18; TEMP 98.1; O2SAT 97
[2025-01-04] MEDS ORDERED: MECL-90 PO (17:26)
--- NOTE | 2025-01-04 18:33 | DVHDS2 ---
Discharge Summary Date of Admission Jan 02, 2025 at 20:39 Date of Discharge: Jan 04, 2025 Labs/Diagnostic Data: Laboratory Results Test 01/04/25 11:49 01/03/25 11:16 01/03/25 10:20 01/03/25 07:15 POC Glucose 170 mg/dl (70-106) Urine Color Light-yellow (Yellow) Urine Clarity Clear (Clear) Urine pH 6.5 (5.0-9.0) Urine Specific [place] 1.007 (1.001-1.035) Urine Protein Negative (Negative) Urine Ketones Negative (Negative) Urine Blood Negative /uL (Negative) Urine Nitrite Negative (Negative) Urine Bilirubin Negative (Negative) Urine Urobilinogen Normal mg/dL (Negative) Urine Leukocyte Esterase Negative /uL (Negative) Urine RBC <1 /hpf (0 - 4) Urine Microscopic WBC 1 /HPF (0-5) Urine Squamous Epithelial Cells None seen /hpf (<5) Urine Bacteria None seen /hpf (None Seen) Urine Glucose Normal mg/dL (Normal) Urine Opiates Screen Neg (NEGATIVE) Urine Fentanyl Screen Neg (NEGATIVE) Urine Barbiturates Screen Neg (NEGATIVE) Urine Phencyclidine Screen Neg (NEGATIVE) Urine Amphetamines Screen Neg (NEGATIVE) Urine Benzodiazepines Screen Neg (NEGATIVE) Urine Cocaine Screen Neg (NEGATIVE) Urine Cannabinoids Screen Neg (NEGATIVE) Troponin I High Sensitivity 8 ng/L (</=34) Sodium Level 140 mmol/L (136-145) Potassium Level 4.2 mmol/L (3.5-5.1) Chloride Level 104 mmol/L (98-107) Carbon Dioxide Level 25 mmol/L (20-31) Anion Gap 11 (5-15) Blood Urea Nitrogen 15 mg/dL (9-23) Creatinine 0.73 mg/dL (0.550-1.02) Glomerular Filtration Rate Calc 89 mL/min (>90) BUN/Creatinine Ratio 20.5 (10.0-20.0) Serum Glucose 139 mg/dL (74-106) Calcium Level 10.1 mg/dL (8.7-10.4) Magnesium Level 2.1 mg/dL (1.6-2.6) Total Bilirubin 0.6 mg/dL (0.2-1.0) Aspartate Amino Transferase (AST) 12 U/L (<34) Alanine Aminotransferase (ALT) < 9 U/L (7-40) Alkaline Phosphatase 85 U/L (46-116) Total Protein 7.0 g/dL (5.7-8.2) Albumin 4.3 g/dL (3.2-4.8) Test 01/03/25 04:55 01/02/25 23:14 01/02/25 10:40 White Blood Count 8.3 10^3/uL (4.4-10.8) Red Blood Count 4.79 10^6/uL (4.0-5.20) Hemoglobin 13.3 g/dL (12.2-16.2) Hematocrit 39.9 % (36.0-46.0) Mean Corpuscular Volume 83.3 fL (80.0-100.0) Mean Corpuscular Hemoglobin 27.9 pg (28.0-32.0) Mean Corpuscular Hemoglobin Concent 33.5 g/dL (32.0-36.0) Red Cell Distribution Width 15.4 % (11.8-14.3) Platelet Count 249 10^3/uL (140-450) Mean Platelet Volume 9.2 fL (6.9-10.8) Neutrophils (%) (Auto) 51.6 % (37.0-80.0) Lymphocytes (%) (Auto) 36.8 % (10.0-50.0) Monocytes (%) (Auto) 8.0 % (0.0-12.0) Eosinophils (%) (Auto) 2.7 % (0.0-7.0) Basophils (%) (Auto) 0.9 % (0.0-2.0) Neutrophils # (Auto) 4.3 10 ^3/uL (1.6-8.6) Lymphocytes # (Auto) 3.1 10 ^3/uL (0.4-5.4) Monocytes # (Auto) 0.7 10 ^3/uL (0-1.3) Eosinophils # (Auto) 0.2 10 ^3/uL (0-0.8) Basophils # (Auto) 0.1 10 ^3/uL (0-0.2) Nucleated Red Blood Cells 0.2 % B-Type Natriuretic Peptide 90.13 pg/mL (0-100) Lactic Acid Level 1.3 mmol/L (0.4-2.0) Hemoglobin A1c 6.8 % A1C (<5.7) Triglycerides Level 124 mg/dL (< 150) Cholesterol Level 148 mg/dL (< 200) LDL Cholesterol 102 mg/dL (< 100) HDL Cholesterol 35 mg/dL (40-59) Thyroid Stimulating Hormone (TSH) 3.07 uIU/mL (0.55-4.78) Plasma/Serum Blood Alcohol < 3.0 mg/dL (<10) Other Laboratory Tests 01/03/25 07:15 01/03/25 04:55 Brief Hx & Hospital Course: Ms. Ellington, a 69-year-old female with a past medical history of coronary artery disease (CAD), diabetes mellitus (DM), and hyperlipidemia (HLD), hypertension, heart failure with reduced ejection fraction (EF 35%), peripheral neuropathy, Surgical history of CABG, Cholecystectomy & Tubal Ligation Underwent two open-heart surgeries, first in June 2024 CABG and again in August 2024, due to postoperative infection. presents to the ED with a 3-day history of dizziness associated with nausea. She describes the dizziness as a vertiginous sensation, worsened by lying down, likening it to being on a roller coaster. Symptoms began spontaneously at rest and have been persistent since onset with no modifying factors except for positional changes. She denies headache, chest pain, shortness of breath, vomiting, dehydration or diarrhea; mental status remains normal before, during, and after episodes. She arrived ambulatory, reports moderate symptom severity, and states that the dizziness does not interfere with daily activities. No prehospital treatment was administered. CT head wnl dizziness improve with meclizine Condition at Discharge: Good Final Diagnosis/Problems List dizziness, benign positional vertigo Discharge Disposition: Home Discharge Instruct/Medications Diet: Regular Activity: No Restrictions, As Tolerated Follow Up/Referral: pcp in 7 days Medications: same home medications Discharge Statement: "Patient was advised to return to the ER or call 911 if any headaches, dizziness, shortness of breath, chest pain, abdominal pain, bleeding, fevers, or worsening of medical condition. Patient was counseled about treatment plan, medications, possible side effects, patientverbalized understanding. All questions were answered to the best of my ability. This discharge took greater then 30 minutes in planning, reviewing documentation, counseling the patient, and discussing with other team members." ASSESSMENT ASSESSMENT Assessment dizziness, benign positional vertigo Date of Service: Jan 04, 2025 Billing Provider: PAIGE VANN MD Common Visit Codes: 51094-NOA/OBS DISCH DAY >30min PAIGE VANN MD Jan 04, 2025 18:33
--- NOTE | 2025-01-05 12:20 | ECG ---
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
== END 2025-01-04 18:00 | disposition home or self-care (01) | DRG 149 ==
LOC: ER 10:04 → OVERFLOW 20:39 → TELE-WESTW 01-03 14:58
PROVIDERS: ATTEND Emergency Medicine
DX: H81.13 Benign paroxysmal vertigo, bilateral (principal); E87.20 Acidosis, unspecified; I50.22 Chronic systolic (congestive) heart failure; I25.10 Atherosclerotic heart disease of native coronary artery without angina pectoris; E78.5 Hyperlipidemia, unspecified; K59.09 Other constipation; E11.43 Type 2 diabetes mellitus with diabetic autonomic (poly)neuropathy; G90.89 Other disorders of autonomic nervous system; I11.0 Hypertensive heart disease with heart failure; E66.9 Obesity, unspecified; K31.84 Gastroparesis; Z95.1 Presence of aortocoronary bypass graft; Z90.49 Acquired absence of other specified parts of digestive tract; Z98.51 Tubal ligation status; I25.2 Old myocardial infarction; Z68.29 Body mass index [BMI] 29.0-29.9, adult; Z88.0 Allergy status to penicillin; Z79.899 Other long term (current) drug therapy; Z79.84 Long term (current) use of oral hypoglycemic drugs
CPT/HCPCS: 36415; 70450; 70551; 71045; 80048; 80053; 80061; 80307; 80320; 81001; 82607; 82962; 83036; 83605; 83735; 83880; 84443; 84484; 85025; 87040; 93005; 93306; 93886; 96360; G0378; J1815; J2470

== ENCOUNTER 2025-01-17 21:05 | Inpatient (IN) | payer OTHER, MEDICAID ==
[~2025-01-17] VITALS: Ht 152.4 cm; Wt 73.5 kg
[~2025-01-17 21:05] MED LIST changes: +MECL-90 PO; -MECL1TAB42 PO; -NITR-87 PO; -ZOFR4T PO
--- NOTE | 2025-01-17 21:28 | ED.PDOC ---
HPI Comments 69-year-old female with a past medical history of coronary artery disease (CAD), diabetes mellitus (DM), and hyperlipidemia (HLD), hypertension, heart failure with reduced ejection fraction (EF 35%), peripheral neuropathy, Surgical history of CABG, Cholecystectomy & Tubal Ligation Underwent two open- heart surgeries, first in June 2024 CABG and again in August 2024, due to postoperative infection. presents to the ED with midsternal chest pain that started last night, described as pressure, constant, radiating to her last lower chest and back areas and associated with dizziness. Patient self medicated with tramadol and aspirin prior to coming to the ER however states pain did not improve. She denies fever, cough, nausea, vomiting, diaphoresis or edema. She states she feels extremely lightheaded. Chief Complaint: Chest Pain Time Seen by MD: 21:32 Primary Care Provider: UNKNOWN Reviewed Notes: Nurses Notes Allergies: Coded Allergies: Penicillins (Verified Allergy, Unknown, 03/17/24) Home Meds Active Scripts Meclizine Hcl (Meclizine Hcl) 25 Mg Tab, 50 MG PO BID for 14 Days, #56 TAB Prov:PAIGE VANN MD 01/04/25 Information Source: Patient Mode of Arrival: Ambulatory Severity: Moderate Timing: Hours Duration: Since onset Location: Substernal Radiation: Back Quality: Pressure Onset: With Light Exertion Cardiac Risk Factors: Hyperlipidemia, Diabetes History of: Similar pain in past, [place] Associated Signs and Symptoms: Back Pain, Other (dizziness) Past Medical History PAST MEDICAL HISTORY: CAD, DM, High Lipids, HTN Surgical History: CABG, Cholecystectomy, Tubal Ligation 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 Family History Family History: Reviewed,noncontributory to illness Social History Smoker: Non-Smoker Alcohol: Denies ETOH Use Drugs: Denies Drug Use Lives In: Home Constitutional: denies: chills, diaphoresis, fatigue, fever, malaise, sweats, weakness, others EENTM: denies: blurred vision, double vision, ear bleeding, ear discharge, ear drainage, ear pain, ear ringing, eye pain, eye redness, hearing loss, mouth pain, mouth swelling, nasal discharge, nose bleeding, nose congestion, nose pain, photophobia, tearing, throat pain, throat swelling, voice changes, others Respiratory: denies: cough, hemoptysis, orthopnea, SOB at rest, shortness of breath, SOB with excertion, stridor, wheezing, others Cardiovascular: reports: chest pain, dizzy spells; denies: diaphoresis, Dyspnea on exertion, edema, irregular heart beat, left arm pain, lightheadedness, palpitations, PND, syncope, others Gastrointestinal: denies: abdomen distended, abdominal pain, blood streaked bowels, constipated, diarrhea, dysphagia, difficulty swallowing, hematemesis, melena, nausea, poor appetite, poor fluid intake, rectal bleeding, rectal pain, vomiting, others Genitourinary: denies: abnormal vagina bleeding, burning, dyspareunia, dysuria, flank pain, frequency, hematuria, incontinence, pain, , vagina discharge, urgency, others Neurological: reports: dizziness; denies: fainting, headache, left sided numbness, left sided weakness, numbness, paresthesia, pre-existing deficit, right sided numbness, right sided weakness, seizure, speech problems, tingling, tremors, weakness, others Musculoskeletal: denies: back pain, gout, joint pain, joint swelling, muscle pain, muscle stiffness, neck pain, others Integumetry: denies: bruises, change in color, change in hair/nails, dryness, laceration, lesions, lumps, rash, wounds, others Allergic/Immunocompromised: denies: Difficulty Healing, Frequent Infections, Hives, Itching, others Hematologic/Lymphatic: denies: anemia, blood clots, easy bleeding, easy bruising, swollen glands, others Endocrine: denies: excessive hunger, excessive sweating, excessive thirst, excessive urination, flushing, intolerance to cold, intolerance to heat, unexplained weight gain, unexplained weight loss, others Psychiatric: denies: anxiety, bipolar disorder, depression, hopeless, panic disorder, schizophrenia, sleepless, suicidal, others Physical Exam General Appearance: Mild Distress, Obese HEENT: PERRL/EOMI, Other (Moist mucous membranes.) Neck: Full Range of Motion, Normal Inspection Respiratory: Lungs Clear, No Accessory Muscle Use, No Respiratory Distress, Normal Breath Sounds Cardiovascular: No Edema, No JVD, Tachycardia Breast Exam: Deferred Gastrointestinal: Non Tender, Soft Genitalia: Deferred Pelvic: Deferred Rectal: Deferred Extremities: Normal inspection, Normal range of motion, Non-tender Neurologic: Alert (Oriented x4), Normal Affect, Normal Mood, Other (Ambulatory) Cerebellar Function: NOT DONE Reflexes: NOT DONE Skin: Dry, Normal Color, Warm Lymphatic: NOT DONE EKG EKG : Comments Sinus tach, rate 110, normal intervals, left axis deviation, old inferior or anteroseptal infarct, lateral T-wave flattening/inversion Was a procedure done? Was a procedure done?: No CP Differential Dx Differential Diagnosis: Angina, Anxiety / Panic Attack, Electrolyte Disorder, Heart Failure, [place], Pulmonary Embolus Differential Diagnosis: CHF Differential Diagnosis: Angina, Chest Wall Pain, Costochondritis, Esophageal reflux/spasm, Gastritis, Myocardial Infarction, Pericarditis, Pneumonia X-Ray, Labs, Meds, VS Vital Signs Date Time Temp Pulse Resp B/P (MAP) Pulse Ox O2 Delivery O2 Flow Rate FiO2 01/17/25 21:20 98.2 109 20 127/77 (94) 98 98.2 01/17/25 21:18 110 Lab Test 01/17/25 22:00 01/17/25 21:10 Range/Units Troponin I High Sensitivity 8 8 </=34 ng/L White Blood Count 8.4 4.4-10.8 10^3/uL Red Blood Count 4.54 4.0-5.20 10^6/uL Hemoglobin 12.9 12.2-16.2 g/dL Hematocrit 37.6 36.0-46.0 % Mean Corpuscular Volume 82.8 80.0-100.0 fL Mean Corpuscular Hemoglobin 28.3 28.0-32.0 pg Mean Corpuscular Hemoglobin Concent 34.2 32.0-36.0 g/dL Red Cell Distribution Width 15.0 H 11.8-14.3 % Platelet Count 361 140-450 10^3/uL Mean Platelet Volume 7.9 6.9-10.8 fL Neutrophils (%) (Auto) 59.8 37.0-80.0 % Lymphocytes (%) (Auto) 28.0 10.0-50.0 % Monocytes (%) (Auto) 6.7 0.0-12.0 % Eosinophils (%) (Auto) 3.2 0.0-7.0 % Basophils (%) (Auto) 2.3 H 0.0-2.0 % Neutrophils # (Auto) 5.0 1.6-8.6 10 ^3/uL Lymphocytes # (Auto) 2.3 0.4-5.4 10 ^3/uL Monocytes # (Auto) 0.6 0-1.3 10 ^3/uL Eosinophils # (Auto) 0.3 0-0.8 10 ^3/uL Basophils # (Auto) 0.2 0-0.2 10 ^3/uL Nucleated Red Blood Cells 0.3 % Sodium Level 139 136-145 mmol/L Potassium Level 3.6 3.5-5.1 mmol/L Chloride Level 104 98-107 mmol/L Carbon Dioxide Level 23 20-31 mmol/L Anion Gap 12 5-15 Blood Urea Nitrogen 17 9-23 mg/dL Creatinine 0.94 0.550-1.02 mg/dL Glomerular Filtration Rate Calc 66 >90 mL/min BUN/Creatinine Ratio 18.1 10.0-20.0 Serum Glucose 258 H 74-106 mg/dL Calcium Level 10.0 8.7-10.4 mg/dL B-Type Natriuretic Peptide 102.88 0-100 pg/mL Current Medications Medications (Trade) Dose Ordered Sig/Missy Route Start Time Stop Time Status Last Admin Aspirin 162 mg ONCE ONCE PO 01/17/25 21:30 01/17/25 21:32 DC 01/18/25 00:58 Nitroglycerin (Nitro-Bid) 1 pkg ONCE ONCE TD 01/17/25 21:30 01/17/25 21:32 DC 01/18/25 00:57 Acetaminophen/ Hydrocodone Bitart ([place] 5/325MG Tab) 1 tab Q4HP PRN PO 01/17/25 22:15 01/18/25 06:26 Ondansetron HCl (Zofran) 4 mg Q4HP PRN IV 01/17/25 22:15 01/18/25 06:27 PROCEDURE(s): CXRP - CHEST PORTABLE REASON: CHEST PAIN ORDER NUMBER(s): [id number], ACCESSION NUMBER(s): [id number] CHEST RADIOGRAPH Indication: CHEST PAIN Technique: Single frontal view of the chest was obtained Comparison: XY CHEST XRAY 1 VIEW on DOS: 01/02/25, XY CHEST PORTABLE on DOS: 07/05/24, XY CHEST PORTABLE on DOS: 06/12/24 FINDINGS: Lines and Tubes: None Lungs: No focal consolidation. Pleura: No effusion. No pneumothorax. Cardiomediastinal contours: Unremarkable Bones: No acute osseous abnormality. IMPRESSION: 1. No acute cardiopulmonary disease. X-Ray, Labs, Meds, VS Comment 69-year-old female with a history of hypertension, diabetes, dyslipidemia, CHF and CAD status post CABG complaining of chest pain Vitals remarkable for heart rate 110 Exam remarkable for tachycardia Rhythm strip independently interpreted by me: Sinus tach, rate 110, no ectopy. Chest x-ray unremarkable CBC, basic metabolic panel and 1st troponin unremarkable, BNP 102.88, UA pending Patient treated with the following in the ED: Aspirin 162 mg p.o., nitro bid 1/2 inch to chest wall On re-evaluation, patient states pain has improved. Vitals were stable. Plan is to admit the patient for Cardiology evaluation. Time of 1ST Reevaluation: 21:27 Reevaluation 1ST: Unchanged Patient Education/Counseling: Diagnosis, Treatment Family Education/Counseling: No Family Present SEPSIS Sepsis Screen Physician Orders Chest Portable (01/17/25 21:07) Electrocardigram (01/17/25 21:07) Consistent Carb(Ccho)Diabetes (01/18/25 Breakfast) Aspirin Tablet (01/18/25 10:00) Atorvastatin (Lipitor) (01/18/25 22:00) Hydralazine Injection (Apresoline Inject (01/17/25 22:15) Famotidine Injection (Pepcid Injection) (01/18/25 10:00) Glucose Blood (Accu-Chek Comfort Curve T (01/18/25 00:00) Insulin R (Human) (Insulin R) (01/18/25 00:00) Dextrose 50% Syringe (01/17/25 22:15) Allergies (01/17/25 22:15) Code Status (01/17/25 22:15) Sodium Chloride 0.9% (01/17/25 22:15) Oxygen Per Hour (01/17/25 22:15) Hydrocodone-Acet 5/325mg Tab ([place] 5/32 (01/17/25 22:15) Ondansetron Hcl (Zofran) (01/17/25 22:15) Docusate Sodium Capsule (Colace Capsule) (01/17/25 22:15) Condition: Serious (01/17/25 22:15) Acetaminophen Tablet (Tylenol Tablet) (01/17/25 22:15) Bedrest With Bathroom Privileg (01/17/25 22:15) Sequential Compression Device (01/17/25 ) Vital Signs Date Time Temp Pulse Resp B/P (MAP) Pulse Ox O2 Delivery O2 Flow Rate FiO2 01/17/25 21:20 98.2 109 20 127/77 (94) 98 98.2 01/17/25 21:18 110 Laboratory Tests Test 01/17/25 21:10 White Blood Count 8.4 10^3/uL (4.4-10.8) Medications Medications Dose Ordered Sig/Missy Route Start Time Stop Time Status Last Admin Dose Admin Acetaminophen/ Hydrocodone Bitart 1 tab Q4HP PRN PO 01/17/25 22:15 01/18/25 06:26 Aspirin 162 mg ONCE ONCE PO 01/17/25 21:30 01/17/25 21:32 DC 01/18/25 00:58 Nitroglycerin 1 pkg ONCE ONCE TD 01/17/25 21:30 01/17/25 21:32 DC 01/18/25 00:57 Ondansetron HCl 4 mg Q4HP PRN IV 01/17/25 22:15 01/18/25 06:27 Departure 1 Departure Time of Disposition: 23:30 Impression: Primary Impression: Chest pain with high risk for cardiac etiology Disposition: ADMITTED INPATIENT Admit to: Tele Condition: Guarded Critical Care Note Critical Care Time?: Yes (35 min-critical care time only) Critical care comment: Critical care time including multiple bedside re-evaluations, review of lab and imaging studies, and discussion of the case with the admitting provider. Patient is high risk for hemodynamic decompensation. Stability Stability form required: No Heart Score Heart Score: Heart Score Response (Comments) Value History Moderate Suspicious [address]-Deviation 2 Age >65 2 Risk Factors >3 or Hx ASHD 2 Troponin Normal limit 0 Total 7 I personally scribed for HARITHA COLON MD ([email or web address]) on 01/17/25 at 21:28. Electronically submitted by Ankur Mirza ([facility]). I personally scribed for HARITHA COLON MD ([email or web address]) on 01/17/25 at 21:32. Electronically submitted by Ankur Mirza ([facility]). I personally scribed for HARITHA COLON MD ([email or web address]) on 01/17/25 at 22:12. Electronically submitted by Ankur Mirza ([facility]). HARITHA COLON MD Jan 17, 2025 21:28
[2025-01-17 21:32] LABS: Hematocrit 37.6 % (36.0-46.0); Hemoglobin 12.9 g/dL (12.2-16.2); Mean Corpuscular Hemoglobin 28.3 pg (28.0-32.0); Mean Corpuscular Volume 82.8 fL (80.0-100.0); Nucleated Red Blood Cells % 0.3 %
[2025-01-17 21:53] LABS: Chloride 104 mmol/L (98-107); Potassium 3.6 mmol/L (3.5-5.1); Sodium 139 mmol/L (136-145)
[2025-01-17 21:54] LABS: Anion Gap 12 (5-15); Calcium 10.0 mg/dL (8.7-10.4); Carbon Dioxide 23 mmol/L (20-31)
[2025-01-17 21:59] LABS: BUN/Creatinine Ratio 18.1 (10.0-20.0); Blood Urea Nitrogen 17 mg/dL (9-23)
[2025-01-17 22:01] LABS: Glucose 258 mg/dL (74-106)
--- NOTE | 2025-01-17 22:06 | DVH ---
CHEST RADIOGRAPH Indication: CHEST PAIN Technique: Single frontal view of the chest was obtained Comparison: XY CHEST XRAY 1 VIEW on DOS: 01/02/25, XY CHEST PORTABLE on DOS: 07/05/24, XY CHEST PORTAB LE on DOS: 06/12/24 FINDINGS: Lines and Tubes: None Lungs: No focal consolidation. Pleura: No effusion. No pneumothorax. Cardiomediastinal contours: Unremarkable Bones: No acute osseous abnormality. IMPRESSION: 1. No acute cardiopulmonary disease.
[2025-01-17] MEDS: SODIUM CHLORIDE 0.9% 1,000 ML IV SCH (22:15)
[2025-01-17] MEDS ORDERED: ACETAMINOPHEN 325 MG TAB PO PRN (22:15)
[2025-01-17] MEDS ORDERED: DOCUSATE SOD 100 MG CAP PO PRN (22:15)
[2025-01-17] MEDS ORDERED: DEXTROSE (50%) 50ML SYRG IV PRN (22:15)
[2025-01-17] MEDS ORDERED: hydrALAZINE HCL 20 MG/ML VL IV PRN (22:15)
--- NOTE | 2025-01-17 23:25 | DVHHP2 ---
History of Present Illness Reason for Visit: Chest pain with high risk for cardiac etiology History of Present Illness The patient is a 69-year-old female with past medical history of Coronary artery disease, DM, hypertension, and hyperlipidemia who presented to [facility] ED with complaint of chest pain. Patient reports she has been experiencing substernal chest pain, radiating to the left shoulder, rating 7/10 numeric scale, associated dizziness, getting worse today that prompted this visit. Patient was seen and evaluated in the ED, laboratory data shows WBC 8.4, platelets 361, sodium 139, potassium 3.6, BUN 17, creatinine 0.94, glucose 258, calcium 10.0, BNP 102.88, troponin 8, blood pressure 127/77, heart rate 109, temperature 98.2 F, O2 saturation 98% on room air. Please see medication orders section in the computer. On my assessment, patient denied chest pain at this moment, no headache, no dizziness, no diaphoresis, no shortness of breath, no nausea, no vomiting, no fever, no chills. Patient was admitted for further evaluation and medical management. Past Medical History CAD, DM, High Lipids, HTN Past Surgical History CABG, Cholecystectomy, Tubal Ligation Family History Reviewed, noncontributory to the management of this case. Past Social History The patient lives at home, denies smoking, alcohol or illicit drugs abuse. Review of Systems Constitutional: No: Fever, Chills, Sweats, Weakness, Malaise, Other Eyes: No: Pain, Vision change, Conjunctivae inflammation, Eyelid inflammation, Other, Redness ENT: No: Ear pain, Ear discharge, Nose pain, Nose discharge, Nose congestion, Mouth pain, Mouth swelling, Throat pain, Throat swelling, Other Respiratory: No: Cough, Dry, Shortness of breath, SOB with excertion, Wheezing, Hemoptysis, Pleuritic Pain, Sputum, Wheezing, Other Cardiovascular: Chest Pain, Other (Dizzy spells); No: Palpitations, Orthopnea, Paroxysmal Noc. Dyspnea, Edema, Lt Headedness Gastrointestinal: No: Nausea, Vomiting, Abdominal Pain, Diarrhea, Constipation, Melena, Hematochezia, Other Genitourinary: No Dysuria, No Frequency, No Incontinence, No Hematuria, No Retention, No Other Musculoskeletal: No: other, neck pain, shoulder pain, arm pain, back pain, hand pain, leg pain, foot pain Skin: No: Rash, Lesions, Jaundice, Bruising, Other Neurological: Other (Dizziness); No: Weakness, Numbness, Incoordination, Change in speech, Confusion, Seizures Allergies: Coded Allergies: Penicillins (Verified Allergy, Unknown, 03/17/24) Medications Current Medications Medications Dose Ordered Sig/Missy Route Start Time Stop Time Status Last Admin Dose Admin Aspirin 81 mg DAILY PO 01/18/25 10:00 Atorvastatin Calcium 40 mg HS PO 01/18/25 22:00 Hydralazine HCl 10 mg Q6HP PRN IV 01/17/25 22:15 Famotidine 20 mg DAILY IV 01/18/25 10:00 Diagnostic Test (Pha) 1 strip IQ4HR 01/18/25 00:00 Insulin Human Regular IQ4HR SC 01/18/25 00:00 Dextrose 50 ml UD PRN IV 01/17/25 22:15 Sodium Chloride 1,000 ml @ 60 mls/hr [id number] IV 01/17/25 22:15 Acetaminophen/ Hydrocodone Bitart 1 tab Q4HP PRN PO 01/17/25 22:15 Ondansetron HCl 4 mg Q4HP PRN IV 01/17/25 22:15 Docusate Sodium 100 mg BIDPRN PRN PO 01/17/25 22:15 Acetaminophen 650 mg Q6HP PRN PO 01/17/25 22:15 Exam Vital Signs Vital Signs Date Time Temp Pulse Resp B/P (MAP) Pulse Ox O2 Delivery O2 Flow Rate FiO2 01/17/25 21:20 98.2 109 20 127/77 (94) 98 98.2 General Appearance: Alert, Oriented X3, Cooperative, No acute distress HEENT: Atraumatic, PERRLA, EOMI, Mucous membr. moist/pink Respiratory: Clear to auscultation, Normal air movement Cardiovascular: Regular rate, Normal S1, Normal S2, No murmurs Abdominal: Normal bowel sounds, Soft, No tenderness, No hepatospenomegaly, No masses Extremities: No clubbing, No cyanosis, No edema, Normal pulses, No tenderness/swelling Skin: No rashes, No breakdown, No significant lesion Neuro: Normal gait, Normal speech, Strength at 5/5 X4 ext, Normal tone, Sensation intact, Cranial nerves 3-12 NL, Reflexes 2+ Psych/Mental Status: Mental status NL, Mood NL Labs/Xrays Labs Test 01/17/25 22:00 01/17/25 21:10 Range/Units Troponin I High Sensitivity 8 </=34 ng/L White Blood Count 8.4 4.4-10.8 10^3/uL Red Blood Count 4.54 4.0-5.20 10^6/uL Hemoglobin 12.9 12.2-16.2 g/dL Hematocrit 37.6 36.0-46.0 % Mean Corpuscular Volume 82.8 80.0-100.0 fL Mean Corpuscular Hemoglobin 28.3 28.0-32.0 pg Mean Corpuscular Hemoglobin Concent 34.2 32.0-36.0 g/dL Red Cell Distribution Width 15.0 H 11.8-14.3 % Platelet Count 361 140-450 10^3/uL Mean Platelet Volume 7.9 6.9-10.8 fL Neutrophils (%) (Auto) 59.8 37.0-80.0 % Lymphocytes (%) (Auto) 28.0 10.0-50.0 % Monocytes (%) (Auto) 6.7 0.0-12.0 % Eosinophils (%) (Auto) 3.2 0.0-7.0 % Basophils (%) (Auto) 2.3 H 0.0-2.0 % Neutrophils # (Auto) 5.0 1.6-8.6 10 ^3/uL Lymphocytes # (Auto) 2.3 0.4-5.4 10 ^3/uL Monocytes # (Auto) 0.6 0-1.3 10 ^3/uL Eosinophils # (Auto) 0.3 0-0.8 10 ^3/uL Basophils # (Auto) 0.2 0-0.2 10 ^3/uL Nucleated Red Blood Cells 0.3 % Sodium Level 139 136-145 mmol/L Potassium Level 3.6 3.5-5.1 mmol/L Chloride Level 104 98-107 mmol/L Carbon Dioxide Level 23 20-31 mmol/L Anion Gap 12 5-15 Blood Urea Nitrogen 17 9-23 mg/dL Creatinine 0.94 0.550-1.02 mg/dL Glomerular Filtration Rate Calc 66 >90 mL/min BUN/Creatinine Ratio 18.1 10.0-20.0 Serum Glucose 258 H 74-106 mg/dL Calcium Level 10.0 8.7-10.4 mg/dL B-Type Natriuretic Peptide 102.88 0-100 pg/mL PATIENT: ZOË SANDSACCT: [id number] UNIT: [id number] : 1955 LOC: ER ROOM / BED: / AGE / SEX: 69 / F ADM STATUS: REG ER SERVICE 06 ORDERING PHYSICIAN: ER PROCEDURE(s): CXRP - CHEST PORTABLE REASON: CHEST PAIN ORDER NUMBER(s): [id number], ACCESSION NUMBER(s): [id number] CHEST RADIOGRAPH Indication: CHEST PAIN Technique: Single frontal view of the chest was obtained Comparison: XY CHEST XRAY 1 VIEW on DOS: 01/02/25, XY CHEST PORTABLE on DOS: 07/05/24, XY CHEST PORTABLE on DOS: 06/12/24 FINDINGS: Lines and Tubes: None Lungs: No focal consolidation. Pleura: No effusion. No pneumothorax. Cardiomediastinal contours: Unremarkable Bones: No acute osseous abnormality. IMPRESSION: 1. No acute cardiopulmonary disease. Assessment/Plan Assessment/Plan Chest pain with high risk for cardiac etiology Generalized weakness Diabetes mellitus with hyperglycemia Plan 1. Admit to telemetry units 2. Breathing treatment 3. Pain control management 4. Management of fluids and electrolytes 5. Consultation for hospitalist 6. Diagnostic tests chest x-ray 7. DVT prophylaxis-on aspirin 8. Repeat labs CBC, CMP in a.m. 9. Continue with current medical management 10. Treatment plan discussed with patient and RN. Patient verbalized understanding. Plan discussed with: Patient, Other (RN) My Orders Orders - CATHERINE TAPIA DNP Procedure Category Date Status Time Consistent DIET 01/18/25 Transmitted Carb(Ccho)Diabetes Breakfast Aspirin Tablet PHA 01/18/25 In Process 10:00 Atorvastatin (Lipitor) PHA 01/18/25 In Process 22:00 Hydralazine Injection PHA 01/17/25 In Process (Apresoline Inject 22:15 Famotidine Injection PHA 01/18/25 In Process (Pepcid Injection) 10:00 Glucose Blood PHA 01/18/25 In Process (Accu-Chek Comfort 00:00 Insulin R (Human) PHA 01/18/25 In Process (Insulin R) 00:00 Dextrose 50% Syringe PHA 01/17/25 In Process 22:15 Allergies ZARI 01/17/25 In Process 22:15 Code Status CODE 01/17/25 Transmitted 22:15 Sodium Chloride 0.9% PHA 01/17/25 In Process 22:15 Oxygen Per Hour RT 01/17/25 Transmitted 22:15 Hydrocodone-Acet PHA 01/17/25 In Process 5/325mg Tab ([place] 22:15 Ondansetron Hcl PHA 01/17/25 In Process (Zofran) 22:15 Docusate Sodium PHA 01/17/25 In Process Capsule (Colace 22:15 Complete Blood Count LAB 01/18/25 Verified 04:00 Comprehensive LAB 01/18/25 Verified Metabolic Panel 04:00 Condition: Serious ZARI 01/17/25 In Process 22:15 Acetaminophen Tablet PHA 01/17/25 In Process (Tylenol Tablet) 22:15 Bedrest With Bathroom ZARI 01/17/25 In Process Privileg 22:15 Sequential ZARI 01/17/25 In Process Compression Device Admit ADMIT 01/17/25 Verified 23:23 Nitroglycerin [facility] 01/17/25 Verified Sublingual (Ntrostat 23:30 Morphine Sulfate [facility] 01/17/25 Verified Injection 23:30 Stat Ekg For Chest [facility] 01/17/25 Verified Pain 23:23 Notify Md Of Changes [facility] 01/17/25 Verified From Base 23:23 Nub Card Tender For [facility] 01/17/25 Verified 24 Hours 23:23 Emergency Dysrhythmia [facility] 01/17/25 Verified Protocol 23:23 Rhythm Strips Once [facility] 01/17/25 Verified Every Shift 23:23 Oxygen By Nasal 01/17/25 Verified Cannula 23:23 Problem List: (1) Chest pain with high risk for cardiac etiology (2) Generalized weakness (3) Diabetes mellitus with hyperglycemia Date of Service: Jan 17, 2025 Billing Provider: CATHERINE TAPIA DNP Common Visit Codes: [id number] INP/OBS CARE (HIGH) CATHERINE TAPIA DNP Jan 17, 2025 23:25
[2025-01-17] MEDS ORDERED: MORPHINE SULFATE INJ 2 MG/ml SYRG IV PRN (23:30)
[2025-01-17] MEDS ORDERED: NITROGLYCERIN 0.4 MG SL TAB SL PRN (23:30)
[2025-01-18 00:25] LABS: Urine Protein, UAD TRACE (Negative)
[2025-01-18] MEDS: ACCU-CHEK COMFORT CURVE STRIP VI SCH (00:56)
[2025-01-18] MEDS: NITROGLYCERIN 2% OINT 1GM PKG TD ONE (00:57)
[2025-01-18] MEDS: InsuLIN REG 1unit/0.01ml Soln (100units/ml) SC SCH (01:05)
[2025-01-18] MEDS: ONDANSETRON HCL 4 MG/2 ML VIAL IM ONE (04:00)
[2025-01-18] MEDS: MORPHINE SULFATE 4 MG/ML SYR/VIAL IV ONE (04:00)
[2025-01-18 05:53] LABS: Hematocrit 35.4 % (36.0-46.0); Hemoglobin 12.1 g/dL (12.2-16.2); Mean Corpuscular Hemoglobin 28.4 pg (28.0-32.0); Mean Corpuscular Volume 83.0 fL (80.0-100.0); Nucleated Red Blood Cells % 0.1 %
[2025-01-18 06:07] LABS: Alkaline Phosphatase 76 U/L (46-116)
[2025-01-18 06:08] LABS: Albumin 4.4 g/dL (3.2-4.8); Anion Gap 8 (5-15); BUN/Creatinine Ratio 21.6 (10.0-20.0); Bilirubin, Total 0.5 mg/dL (0.2-1.0); Blood Urea Nitrogen 19 mg/dL (9-23); Calcium 10.0 mg/dL (8.7-10.4); Carbon Dioxide 24 mmol/L (20-31); Chloride 106 mmol/L (98-107); Glucose 100 mg/dL (74-106); Potassium 3.8 mmol/L (3.5-5.1); Sodium 138 mmol/L (136-145); Total Protein 7.0 g/dL (5.7-8.2)
[2025-01-18 06:09] LABS: Alanine Aminotransferase < 9 U/L (7-40)
[2025-01-18] MEDS: HYDROcodone-ACET 5/325MG TAB PO PRN (06:26)
[2025-01-18] MEDS: ONDANSETRON HCL 4 MG/2 ML VIAL IV PRN (06:27)
--- NOTE | 2025-01-18 07:02 | ECG ---
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
[2025-01-18 09:20] VITALS: PULSE 75; RESP 14; O2SAT 97
[2025-01-18] MEDS: FAMOTIDINE (10MG/ML) 2ML VL IV SCH (10:13)
--- NOTE | 2025-01-18 13:14 | DVHPN2 ---
Reviewed: Care Plan, H&P, Labs, Medications, Previous Orders, Radiology Changes from previous H/P or p: No Changes Eyes: No Pain, No Vision change, No Conjunctivae inflammation, No Eyelid inflammation, No Other, No Redness ENT: No Ear pain, No Ear discharge, No Nose pain, No Nose discharge, No Nose congestion, No Mouth pain, No Mouth swelling, No Throat pain, No Throat swelling, No Other Cardiovascular: Chest Pain; No Palpitations, No Orthopnea, No Paroxysmal Noc. Dyspnea, No Edema, No Lt Headedness; Other (Dizzy spells) Respiratory: No Cough, No Dry, No Shortness of breath, No SOB with excertion, No Wheezing, No Hemoptysis, No Pleuritic Pain, No Sputum, No Other Gastrointestinal: No Nausea, No Vomiting, No Abdominal Pain, No Diarrhea, No Constipation, No Melena, No Hematochezia, No Other Genitourinary: No Dysuria, No Frequency, No Incontinence, No Hematuria, No Retention, No Other Musculoskeletal: No other, No neck pain, No shoulder pain, No arm pain, No back pain, No hand pain, No leg pain, No foot pain Skin: No Rash, No Lesions, No Jaundice, No Bruising, No Other Objective Vitals Vital Signs Date Time Temp Pulse Resp B/P (MAP) Pulse Ox O2 Delivery O2 Flow Rate FiO2 01/18/25 10:03 80 01/18/25 09:34 95 Room Air* 0 21 01/18/25 09:20 14 01/18/25 09:19 98.0 92/57 (69) 98.0 Medications Current Medications Medications Dose Ordered Sig/Missy Route Start Time Stop Time Status Last Admin Dose Admin Aspirin 81 mg DAILY PO 01/18/25 10:00 01/18/25 10:13 81 MG Atorvastatin Calcium 40 mg HS PO 01/18/25 22:00 Hydralazine HCl 10 mg Q6HP PRN IV 01/17/25 22:15 Famotidine 20 mg DAILY IV 01/18/25 10:00 01/18/25 10:13 20 MG Diagnostic Test (Pha) 1 strip IQ4HR 01/18/25 00:00 01/18/25 12:00 1 STRIP Insulin Human Regular IQ4HR SC 01/18/25 00:00 01/18/25 01:05 2 UNITS Dextrose 50 ml UD PRN IV 01/17/25 22:15 Sodium Chloride 1,000 ml @ 60 mls/hr [id number] IV 01/17/25 22:15 Acetaminophen/ Hydrocodone Bitart 1 tab Q4HP PRN PO 01/17/25 22:15 01/18/25 06:26 1 TAB Ondansetron HCl 4 mg Q4HP PRN IV 01/17/25 22:15 01/18/25 06:27 4 MG Docusate Sodium 100 mg BIDPRN PRN PO 01/17/25 22:15 Acetaminophen 650 mg Q6HP PRN PO 01/17/25 22:15 Nitroglycerin 0.4 mg Q5MINP PRN SL 01/17/25 23:30 Morphine Sulfate 2 mg Q30M PRN IV 01/17/25 23:30 Laboratory Results Laboratory Tests 01/18/25 05:35 Chemistry Test 01/17/25 21:10 01/18/25 05:35 Calcium Level 10.0 mg/dL (8.7-10.4) 10.0 mg/dL (8.7-10.4) Albumin 4.4 g/dL (3.2-4.8) Total Protein 7.0 g/dL (5.7-8.2) Cardiac Markers Test 01/17/25 21:10 B-Type Natriuretic Peptide 102.88 pg/mL (0-100) LFT Test 01/18/25 05:35 Alanine Aminotransferase (ALT) < 9 U/L (7-40) Alkaline Phosphatase 76 U/L (46-116) Aspartate Amino Transferase (AST) 9 U/L (<34) Total Bilirubin 0.5 mg/dL (0.2-1.0) Urinalysis Test 01/17/25 23:58 Urine Color Yellow (Yellow) Urine Clarity Clear (Clear) Urine pH 5.0 (5.0-9.0) Urine Specific [place] 1.027 (1.001-1.035) Urine Protein Trace (Negative) H Urine Ketones Negative (Negative) Urine Blood Negative /uL (Negative) Urine Nitrite Negative (Negative) Urine Bilirubin Negative (Negative) Urine Urobilinogen 2 mg/dL (Negative) H Urine Leukocyte Esterase 1+ /uL (Negative) Urine RBC 2 /hpf (0 - 4) Urine Microscopic WBC 9 /HPF (0-5) H Urine Squamous Epithelial Cells Few /hpf (<5) Urine Bacteria None seen /hpf (None Seen) Urine Mucus Few (None Seen) Urine Glucose 1+ mg/dL (Normal) H Labs and/or images reviewed: Labs reviewed by me, Image(s) reviewed by me Assessment/Plan Assessment/Plan Acute chest pain rule out coronary artery disease: Troponin negative x3, treatment per ACS protocol, consult for Cardiology Dr. Flowers History of coronary artery disease History of CABG Diabetes Hypertension Hypercholesterolemia Mild UTI Chest x-ray negative Patient is hospice revoked Patient is full code Time spent 70 minutes Advanced care planning time 20 minutes Plan discussed with: Patient Date of Service: Jan 18, 2025 Billing Provider: SADA LEWIS MD Common Visit Codes: [id number] CARE 30-74 MIN SADA LEWIS MD Jan 18, 2025 13:14
[2025-01-18 19:54] VITALS: PULSE 80; RESP 18; O2SAT 97
[2025-01-18 21:07] VITALS: BP 138/85; PULSE 78; RESP 18; TEMP 97.8; O2SAT 98
[2025-01-18] MEDS: ATORVASTATIN 20 MG TAB PO SCH (23:47)
[2025-01-19] VITALS (8 sets, daily range): BP systolic 95–137; BP diastolic 65–93; PULSE 67–82; RESP 16–18; TEMP 97.6–99.1; O2SAT 96–100
--- NOTE | 2025-01-19 13:40 | DVHPN2 ---
Reviewed: Care Plan, H&P, Labs, Medications, Previous Orders, Radiology Changes from previous H/P or p: No Changes Eyes: No Pain, No Vision change, No Conjunctivae inflammation, No Eyelid inflammation, No Other, No Redness ENT: No Ear pain, No Ear discharge, No Nose pain, No Nose discharge, No Nose congestion, No Mouth pain, No Mouth swelling, No Throat pain, No Throat swelling, No Other Cardiovascular: Chest Pain; No Palpitations, No Orthopnea, No Paroxysmal Noc. Dyspnea, No Edema, No Lt Headedness; Other (Dizzy spells) Respiratory: No Cough, No Dry, No Shortness of breath, No SOB with excertion, No Wheezing, No Hemoptysis, No Pleuritic Pain, No Sputum, No Other Gastrointestinal: No Nausea, No Vomiting, No Abdominal Pain, No Diarrhea, No Constipation, No Melena, No Hematochezia, No Other Genitourinary: No Dysuria, No Frequency, No Incontinence, No Hematuria, No Retention, No Other Musculoskeletal: No other, No neck pain, No shoulder pain, No arm pain, No back pain, No hand pain, No leg pain, No foot pain Skin: No Rash, No Lesions, No Jaundice, No Bruising, No Other Objective Vitals Vital Signs Date Time Temp Pulse Resp B/P (MAP) Pulse Ox O2 Delivery O2 Flow Rate FiO2 01/19/25 09:00 98.4 67 16 119/78 (92) 99 98.4 01/18/25 22:21 Room Air* 0 21 Intake/Output Intake and Output 01/19/25 07:00 Intake Total 460 ml Balance 460 ml Intake Oral 460 ml # Voids 1 Medications Current Medications Medications Dose Ordered Sig/Missy Route Start Time Stop Time Status Last Admin Dose Admin Aspirin 81 mg DAILY PO 01/18/25 10:00 01/19/25 09:46 81 MG Atorvastatin Calcium 40 mg HS PO 01/18/25 22:00 01/18/25 23:47 40 MG Hydralazine HCl 10 mg Q6HP PRN IV 01/17/25 22:15 Famotidine 20 mg DAILY IV 01/18/25 10:00 01/19/25 09:45 20 MG Diagnostic Test (Pha) 1 strip IQ4HR 01/18/25 00:00 01/19/25 12:24 1 STRIP Insulin Human Regular IQ4HR SC 01/18/25 00:00 01/19/25 12:24 2 UNITS Dextrose 50 ml UD PRN IV 01/17/25 22:15 Sodium Chloride 1,000 ml @ 60 mls/hr [id number] IV 01/17/25 22:15 01/19/25 07:35 60 MLS/HR Acetaminophen/ Hydrocodone Bitart 1 tab Q4HP PRN PO 01/17/25 22:15 01/19/25 11:39 1 TAB Ondansetron HCl 4 mg Q4HP PRN IV 01/17/25 22:15 01/18/25 06:27 4 MG Docusate Sodium 100 mg BIDPRN PRN PO 01/17/25 22:15 Acetaminophen 650 mg Q6HP PRN PO 01/17/25 22:15 Nitroglycerin 0.4 mg Q5MINP PRN SL 01/17/25 23:30 Morphine Sulfate 2 mg Q30M PRN IV 01/17/25 23:30 Laboratory Results Laboratory Tests 01/18/25 05:35 Urinalysis Test 01/17/25 23:58 Urine Color Yellow (Yellow) Urine Clarity Clear (Clear) Urine pH 5.0 (5.0-9.0) Urine Specific [place] 1.027 (1.001-1.035) Urine Protein Trace (Negative) H Urine Ketones Negative (Negative) Urine Blood Negative /uL (Negative) Urine Nitrite Negative (Negative) Urine Bilirubin Negative (Negative) Urine Urobilinogen 2 mg/dL (Negative) H Urine Leukocyte Esterase 1+ /uL (Negative) Urine RBC 2 /hpf (0 - 4) Urine Microscopic WBC 9 /HPF (0-5) H Urine Squamous Epithelial Cells Few /hpf (<5) Urine Bacteria None seen /hpf (None Seen) Urine Mucus Few (None Seen) Urine Glucose 1+ mg/dL (Normal) H Labs and/or images reviewed: Labs reviewed by me, Image(s) reviewed by me Assessment/Plan Assessment/Plan Acute chest pain rule out coronary artery disease: Troponin negative x3, treatment per ACS protocol, consult for Cardiology Dr. Dior History of coronary artery disease History of CABG Jun 2019 Diabetes Hypertension Hypercholesterolemia Mild UTI Chest x-ray negative Patient is hospice revoked Patient is full code Time spent 55 minutes Plan discussed with: Patient Date of Service: Jan 19, 2025 Billing Provider: SADA LEWIS MD Common Visit Codes: [id number] INP/OBS CARE(HIGH) SADA LEWIS MD Jan 19, 2025 13:40
--- NOTE | 2025-01-19 15:25 | DVHINCON2 ---
ARISTIDES PEPPER [facility] 01/19/25 1525: Date Seen: Jan 19, 2025 Referring Physician MD Alireza Reason for Consultation Chest pain History of Present Illness This is a pleasant 69-year-old female who presented to the emergency room with a chief complaint of left breast pain at 8 o'clock. The patient reports undergoing a quintuple vessel coronary artery bypass graft surgery at [facility] in [place] on 06/2024. Afterwards she developed a median sternotomy abscess for which she underwent surgical debridement at the aforementioned facility on 08/2024. Since then, she has followed up with cardiothoracic specialist with latest appointment completed this past Sunday where the wound was packed. She presents with an sternotomy abscess which appear to be extending to the left breast area at 8 o'clock. Denies any fever, chills, or generalized myalgia. Other significant medical history includes hypertension, dyslipidemia, clo-edlfkxl-zlfiefdnm diabetes mellitus, and obesity. Past Medical History Past medical history reviewed. No other significant than mentioned above. Past Surgical History Quintuple vessel CABG, 06/2024 Surgical debridement of median sternotomy, 08/2024 Cholecystectomy Bilateral tubal ligation Family History: FH: emphysema G8 MOTHER FH: heart attack G8 FATHER G8 BROTHER Family History Family history reviewed. Social History Denies the use of illicit drugs, alcohol, or tobacco use. Allergies: Coded Allergies: Penicillins (Verified Allergy, Unknown, 03/17/24) Home Meds Unable to Obtain Active Prescriptions or Reported Meds Home Meds Home medications reviewed. Current Medications Current Medications Medications (Trade) Dose Ordered Sig/Missy Route PRN Reason Start Time Stop Time Status Last Admin Atorvastatin Calcium (Lipitor) 40 mg HS PO 01/18/25 22:00 01/18/25 23:47 Review of Systems Constitutional: No symptom reported Ears, Nose, & Throat: No symptom reported Eyes: No symptom reported Neurological: No symptoms reported Pulmonary/Respiratory: No symptom reported Cardiovascular: No symptom reported Gastrointestinal: No symptom reported Genitourinary: No symptom reported Musculoskeletal: Chest wall pain Skin: No symptom reported Psychiatric: No symptom reported Endocrine: No symptom reported Hemotologic/Lymphatic: No symptom reported Vital Signs Vital Signs Date Time Temp Pulse Resp B/P (MAP) Pulse Ox O2 Delivery O2 Flow Rate FiO2 01/19/25 09:00 98.4 67 16 119/78 (92) 99 98.4 01/18/25 22:21 Room Air* 0 21 Physical Exam General Appearance: Cooperative. Well developed. Well nourished. In no acute distress Head Exam: Normal inspection Neck Exam: Normal inspection. Non-tender. Normal alignment Pulmonary/Respiratory: Chest non-tender. Clear bilateral breath sounds Cardiovascular/Chest: Regular rate and rhythm. S1, S2. Sinus rhythm. No murmurs. No JVD. Infection to median sternotomy extending to the left breast at 8 o'clock, tender to touch Peripheral Pulses: 2+ Radial (R). 2+ Radial (L). 2+ Pedal (R). 2+ Pedal (L) Abdominal Exam: Normal bowel sounds. Soft. Nontender. No hepatospenomegaly. No masses Ankle Exam: Negative ankle edema Lower extremities: Negative lower extremity edema Neuro/Mental Status: A&O x4. Coherent Thoughts/Psych: Normal thought pattern. Appropriate mood and affect. Good judgement and insight Appearance: In no acute distress Skin Exam: Infection to median sternotomy extending to the left breast at 8 o'clock, tender to touch Labs/Diagnostic Data Labs Test 01/19/25 11:43 01/18/25 05:35 01/17/25 23:58 01/17/25 22:00 Range/Units POC Glucose 141 H 70-106 mg/dl White Blood Count 7.9 4.4-10.8 10^3/uL Red Blood Count 4.27 4.0-5.20 10^6/uL Hemoglobin 12.1 L 12.2-16.2 g/dL Hematocrit 35.4 L 36.0-46.0 % Mean Corpuscular Volume 83.0 80.0-100.0 fL Mean Corpuscular Hemoglobin 28.4 28.0-32.0 pg Mean Corpuscular Hemoglobin Concent 34.3 32.0-36.0 g/dL Red Cell Distribution Width 14.8 H 11.8-14.3 % Platelet Count 349 140-450 10^3/uL Mean Platelet Volume 7.7 6.9-10.8 fL Neutrophils (%) (Auto) 59.6 37.0-80.0 % Lymphocytes (%) (Auto) 28.6 10.0-50.0 % Monocytes (%) (Auto) 8.0 0.0-12.0 % Eosinophils (%) (Auto) 2.5 0.0-7.0 % Basophils (%) (Auto) 1.3 0.0-2.0 % Neutrophils # (Auto) 4.7 1.6-8.6 10 ^3/uL Lymphocytes # (Auto) 2.3 0.4-5.4 10 ^3/uL Monocytes # (Auto) 0.6 0-1.3 10 ^3/uL Eosinophils # (Auto) 0.2 0-0.8 10 ^3/uL Basophils # (Auto) 0.1 0-0.2 10 ^3/uL Nucleated Red Blood Cells 0.1 % Sodium Level 138 136-145 mmol/L Potassium Level 3.8 3.5-5.1 mmol/L Chloride Level 106 98-107 mmol/L Carbon Dioxide Level 24 20-31 mmol/L Anion Gap 8 5-15 Blood Urea Nitrogen 19 9-23 mg/dL Creatinine 0.88 0.550-1.02 mg/dL Glomerular Filtration Rate Calc 71 >90 mL/min BUN/Creatinine Ratio 21.6 H 10.0-20.0 Serum Glucose 100 74-106 mg/dL Calcium Level 10.0 8.7-10.4 mg/dL Total Bilirubin 0.5 0.2-1.0 mg/dL Aspartate Amino Transferase (AST) 9 <34 U/L Alanine Aminotransferase (ALT) < 9 7-40 U/L Alkaline Phosphatase 76 46-116 U/L Total Protein 7.0 5.7-8.2 g/dL Albumin 4.4 3.2-4.8 g/dL Urine Color Yellow Yellow Urine Clarity Clear Clear Urine pH 5.0 5.0-9.0 Urine Specific [place] 1.027 1.001-1.035 Urine Protein Trace H Negative Urine Ketones Negative Negative Urine Blood Negative Negative /uL Urine Nitrite Negative Negative Urine Bilirubin Negative Negative Urine Urobilinogen 2 H Negative mg/dL Urine Leukocyte Esterase 1+ Negative /uL Urine RBC 2 0 - 4 /hpf Urine Microscopic WBC 9 H 0-5 /HPF Urine Squamous Epithelial Cells Few <5 /hpf Urine Bacteria None seen None Seen /hpf Urine Mucus Few None Seen Urine Glucose 1+ H Normal mg/dL Troponin I High Sensitivity 8 </=34 ng/L Test 01/17/25 21:10 Range/Units B-Type Natriuretic Peptide 102.88 0-100 pg/mL Assessment Median sternotomy wound complications Severe coronary artery disease status post quintuple vessel CABG (on 06/2024) Surgical debridement of median sternotomy wound (on 08/2024) Hypertension Dyslipidemia Wov-wsmfmeo-rzzugxylr diabetes mellitus Obesity Plan/Recommendation (Dr. Samaniego) The patient presents with a median sternotomy wound with high likelihood of abscess extending to left breast area at 8 o'clock and at risk for developing mediastinitis. Recommendations are for patient to be transferred to [facility] in [place] for further cardiothoracic team care as the patient underwent quintuple vessel CABG there on 06/2024 with subsequent surgical debridement on 08/2024. In the meantime, continue single-antiplatelet therapy and lipid lowering agent. Consider ID involvement for empiric therapy. Kindly call if in need of further recommendations. Thank you for allowing us to participate in this patient's care. This medical document was created using an electronic medical record system with voice recognition software and computerized dictation system. Although this document has been carefully reviewed, there might still be some phonetic and typographical errors. Occasional wrong-word or ``sound-alike substitutions may have occurred due to the inherent limitations of voice recognition software. These areas are purely typographical due to imperfections of the software programs and do not reflect any compromise in the patient's medical care. Please read the chart carefully and recognize, using context, where these substi tutions have occurred. Plan discussed with: Patient, Other NYHA Physical activity limitations: NA Date of Service: Jan 19, 2025 Billing Provider: ARISTIDES PEPPER Cardiology Common Codes: [id number] INP/OBS CARE (High) FEI SAMANIEGO MD 01/19/25 1726: Family History: FH: emphysema G8 MOTHER FH: heart attack G8 FATHER G8 BROTHER Allergies: Coded Allergies: Penicillins (Verified Allergy, Unknown, 03/17/24) Home Meds Unable to Obtain Active Prescriptions or Reported Meds Plan/Recommendation AGREE WITH CLINICAL BIOCHEMIST ASSESSMENT AND PLAN PT HAS SEEN ME IN PAST SHE HAS CHRONIC WOUND DEHISCENCE AND FOLLOWS AT [place] THIS TYPE OF PT SHOULDNT BE ADMITTED AT [facility] WITH SURGICAL TEAM ABX PER PRIMARY TEAM, TRANSFER TO SEND PT TO HER SURGEON CONSIDER NON CON CT IF INDICATED ARISTIDES PEPPER Jan 19, 2025 15:25 FEI SAMANIEGO MD Jan 19, 2025 17:26
[2025-01-20] VITALS (8 sets, daily range): BP systolic 107–141; BP diastolic 68–83; PULSE 78–117; RESP 14–18; TEMP 97.6–98.9; O2SAT 97–99
--- NOTE | 2025-01-20 11:36 | DVHPN2 ---
Reviewed: Care Plan, H&P, Labs, Medications, Previous Orders, Radiology Changes from previous H/P or p: No Changes Eyes: No Pain, No Vision change, No Conjunctivae inflammation, No Eyelid inflammation, No Other, No Redness ENT: No Ear pain, No Ear discharge, No Nose pain, No Nose discharge, No Nose congestion, No Mouth pain, No Mouth swelling, No Throat pain, No Throat swelling, No Other Cardiovascular: Chest Pain; No Palpitations, No Orthopnea, No Paroxysmal Noc. Dyspnea, No Edema, No Lt Headedness; Other (Dizzy spells) Respiratory: No Cough, No Dry, No Shortness of breath, No SOB with excertion, No Wheezing, No Hemoptysis, No Pleuritic Pain, No Sputum, No Other Gastrointestinal: No Nausea, No Vomiting, No Abdominal Pain, No Diarrhea, No Constipation, No Melena, No Hematochezia, No Other Genitourinary: No Dysuria, No Frequency, No Incontinence, No Hematuria, No Retention, No Other Musculoskeletal: No other, No neck pain, No shoulder pain, No arm pain, No back pain, No hand pain, No leg pain, No foot pain Skin: No Rash, No Lesions, No Jaundice, No Bruising, No Other Objective Vitals Vital Signs Date Time Temp Pulse Resp B/P (MAP) Pulse Ox O2 Delivery O2 Flow Rate FiO2 01/20/25 09:00 98.0 98 16 126/77 (93) 98 98.0 01/19/25 20:00 Room Air* 0 N/A Nasal Cannula* Intake/Output Intake and Output 01/20/25 07:00 Intake Total 1300 ml Balance 1300 ml Intake Oral 1300 ml # Voids 5 Medications Current Medications Medications Dose Ordered Sig/Missy Route Start Time Stop Time Status Last Admin Dose Admin Aspirin 81 mg DAILY PO 01/18/25 10:00 01/20/25 10:37 81 MG Atorvastatin Calcium 40 mg HS PO 01/18/25 22:00 01/19/25 21:12 40 MG Hydralazine HCl 10 mg Q6HP PRN IV 01/17/25 22:15 Famotidine 20 mg DAILY IV 01/18/25 10:00 01/20/25 10:37 20 MG Diagnostic Test (Pha) 1 strip IQ4HR 01/18/25 00:00 01/20/25 07:57 1 STRIP Insulin Human Regular IQ4HR SC 01/18/25 00:00 01/19/25 21:22 2 UNITS Dextrose 50 ml UD PRN IV 01/17/25 22:15 Sodium Chloride 1,000 ml @ 60 mls/hr [id number] IV 01/17/25 22:15 01/20/25 00:28 60 MLS/HR Acetaminophen/ Hydrocodone Bitart 1 tab Q4HP PRN PO 01/17/25 22:15 01/20/25 10:38 1 TAB Ondansetron HCl 4 mg Q4HP PRN IV 01/17/25 22:15 01/18/25 06:27 4 MG Docusate Sodium 100 mg BIDPRN PRN PO 01/17/25 22:15 Acetaminophen 650 mg Q6HP PRN PO 01/17/25 22:15 Nitroglycerin 0.4 mg Q5MINP PRN SL 01/17/25 23:30 Morphine Sulfate 2 mg Q30M PRN IV 01/17/25 23:30 Laboratory Results Laboratory Tests 01/18/25 05:35 Urinalysis Test 01/17/25 23:58 Urine Color Yellow (Yellow) Urine Clarity Clear (Clear) Urine pH 5.0 (5.0-9.0) Urine Specific [place] 1.027 (1.001-1.035) Urine Protein Trace (Negative) H Urine Ketones Negative (Negative) Urine Blood Negative /uL (Negative) Urine Nitrite Negative (Negative) Urine Bilirubin Negative (Negative) Urine Urobilinogen 2 mg/dL (Negative) H Urine Leukocyte Esterase 1+ /uL (Negative) Urine RBC 2 /hpf (0 - 4) Urine Microscopic WBC 9 /HPF (0-5) H Urine Squamous Epithelial Cells Few /hpf (<5) Urine Bacteria None seen /hpf (None Seen) Urine Mucus Few (None Seen) Urine Glucose 1+ mg/dL (Normal) H Microbiology Microbiology Date/Time Source Procedure Growth Status 01/19/25 19:03 Chest Gram Stain Pending Resulted 01/19/25 19:03 Chest Wound Culture - Preliminary Resulted Labs and/or images reviewed: Labs reviewed by me, Image(s) reviewed by me Assessment/Plan Assessment/Plan Median sternotomy wound complications Severe coronary artery disease status post quintuple vessel CABG (on 06/2024) at [facility] Surgical debridement of median sternotomy wound (on 08/2024) at [facility] Hypertension Dyslipidemia Uhz-jfalbzu-bshipxxsu diabetes mellitus Obesity Acute chest pain rule out coronary artery disease: Troponin negative x3, treatment per ACS protocol, consult for Cardiology Dr. Dior Chest x-ray negative Patient is hospice revoked Patient is full code Time spent 55 minutes Cardiology recommended transfer to [facility] for possible median sternotomy wound infection ID CONSULT PLACED Patient is willing for transfer to [facility] Plan discussed with: Patient My Orders Orders - SADA LEWIS MD Procedure Category Date Status Time * Cardiology Consult CONS 01/19/25 Transmitted 13:29 Cleanse Wound With ZARI 01/19/25 In Process Wound Clean 14:18 * Dietary Consult CONS 01/19/25 Transmitted 17:35 Wound Culture W/ Gs BETTINA 01/19/25 In Process 17:57 Date of Service: Jan 20, 2025 Billing Provider: SADA LEWIS MD Common Visit Codes: [id number] INP/OBS CARE(HIGH) SAAD LEWIS MD Jan 20, 2025 11:36
[2025-01-20] MEDS ORDERED: VANCOMYCIN PER PHARMACY 0 MG IV SCH (11:45)
--- NOTE | 2025-01-20 11:54 | DVHDS2 ---
Discharge Summary Date of Admission Jan 17, 2025 at 23:23 Date of Discharge: Jan 20, 2025 Admitting Diagnosis Chest pain Wounds: None Labs/Diagnostic Data: Laboratory Results Test 01/20/25 07:51 01/18/25 05:35 01/17/25 23:58 01/17/25 22:00 POC Glucose 109 mg/dl (70-106) White Blood Count 7.9 10^3/uL (4.4-10.8) Red Blood Count 4.27 10^6/uL (4.0-5.20) Hemoglobin 12.1 g/dL (12.2-16.2) Hematocrit 35.4 % (36.0-46.0) Mean Corpuscular Volume 83.0 fL (80.0-100.0) Mean Corpuscular Hemoglobin 28.4 pg (28.0-32.0) Mean Corpuscular Hemoglobin Concent 34.3 g/dL (32.0-36.0) Red Cell Distribution Width 14.8 % (11.8-14.3) Platelet Count 349 10^3/uL (140-450) Mean Platelet Volume 7.7 fL (6.9-10.8) Neutrophils (%) (Auto) 59.6 % (37.0-80.0) Lymphocytes (%) (Auto) 28.6 % (10.0-50.0) Monocytes (%) (Auto) 8.0 % (0.0-12.0) Eosinophils (%) (Auto) 2.5 % (0.0-7.0) Basophils (%) (Auto) 1.3 % (0.0-2.0) Neutrophils # (Auto) 4.7 10 ^3/uL (1.6-8.6) Lymphocytes # (Auto) 2.3 10 ^3/uL (0.4-5.4) Monocytes # (Auto) 0.6 10 ^3/uL (0-1.3) Eosinophils # (Auto) 0.2 10 ^3/uL (0-0.8) Basophils # (Auto) 0.1 10 ^3/uL (0-0.2) Nucleated Red Blood Cells 0.1 % Sodium Level 138 mmol/L (136-145) Potassium Level 3.8 mmol/L (3.5-5.1) Chloride Level 106 mmol/L (98-107) Carbon Dioxide Level 24 mmol/L (20-31) Anion Gap 8 (5-15) Blood Urea Nitrogen 19 mg/dL (9-23) Creatinine 0.88 mg/dL (0.550-1.02) Glomerular Filtration Rate Calc 71 mL/min (>90) BUN/Creatinine Ratio 21.6 (10.0-20.0) Serum Glucose 100 mg/dL (74-106) Calcium Level 10.0 mg/dL (8.7-10.4) Total Bilirubin 0.5 mg/dL (0.2-1.0) Aspartate Amino Transferase (AST) 9 U/L (<34) Alanine Aminotransferase (ALT) < 9 U/L (7-40) Alkaline Phosphatase 76 U/L (46-116) Total Protein 7.0 g/dL (5.7-8.2) Albumin 4.4 g/dL (3.2-4.8) Urine Color Yellow (Yellow) Urine Clarity Clear (Clear) Urine pH 5.0 (5.0-9.0) Urine Specific [place] 1.027 (1.001-1.035) Urine Protein Trace (Negative) Urine Ketones Negative (Negative) Urine Blood Negative /uL (Negative) Urine Nitrite Negative (Negative) Urine Bilirubin Negative (Negative) Urine Urobilinogen 2 mg/dL (Negative) Urine Leukocyte Esterase 1+ /uL (Negative) Urine RBC 2 /hpf (0 - 4) Urine Microscopic WBC 9 /HPF (0-5) Urine Squamous Epithelial Cells Few /hpf (<5) Urine Bacteria None seen /hpf (None Seen) Urine Mucus Few (None Seen) Urine Glucose 1+ mg/dL (Normal) Troponin I High Sensitivity 8 ng/L (</=34) Test 01/17/25 21:10 B-Type Natriuretic Peptide 102.88 pg/mL (0-100) Other Laboratory Tests 01/18/25 05:35 Brief Hx & Hospital Course: 69-year-old female with a history of CABG 06/2024 at [facility] status post surgical debridement of median sternotomy wound to August 2024 same hospital was on hospice and came to the hospital admitted after a vacation with the hospice complained of chest pain. Troponin negative seen by Cardiology felt the patient has a median sternotomy wound infection possible extension to the mediastinitis. Advised ID consult and antibiotics placed on vancomycin and clindamycin ID consult for Dr. Peña pending history of diabetes hypotension hypercholesterolemia. Troponin negative x3. Being transferred to [facility] for further care per Cardiology recommendation Consults/Reason for consult Cardiology Infection disease Operations or Procedures CT chest Condition at Discharge: Fair Final Diagnosis/Problems List Median sternotomy wound complications Severe coronary artery disease status post quintuple vessel CABG (on 06/2024) at [facility] Surgical debridement of median sternotomy wound (on 08/2024) at [facility] Hypertension Dyslipidemia Oru-uohgwys-gmpnjjbhj diabetes mellitus Obesity Acute chest pain rule out coronary artery disease: Troponin negative x3, treatment per ACS protocol, consult for Cardiology Dr. Dior Chest x-ray negative Discharge Disposition: Acute Care Facility Discharge Instruct/Medications Diet: Cardiac 2g Na,low cholest Activity: Light activity Follow Up/Referral: Follow up with the receiving hospital Medications: see list Unable to Obtain Active Prescriptions or Reported Meds 39 (Time taken for discharge summary 39 minutes) Discharge Statement: "Patient was advised to return to the ER or call 911 if any headaches, dizziness, shortness of breath, chest pain, abdominal pain, bleeding, fevers, or worsening of medical condition. Patient was counseled about treatment plan, medications, possible side effects, patientverbalized understanding. All questions were answered to the best of my ability. This discharge took greater then 30 minutes in planning, reviewing documentation, counseling the patient, and discussing with other team members." ASSESSMENT ASSESSMENT Hospital Course Stable Assessment Median sternotomy wound complications Severe coronary artery disease status post quintuple vessel CABG (on 06/2024) at [facility] Surgical debridement of median sternotomy wound (on 08/2024) at [facility] Hypertension Dyslipidemia Ssu-ytgthzu-ijhyrqwed diabetes mellitus Obesity Acute chest pain rule out coronary artery disease: Troponin negative x3, treatment per ACS protocol, consult for Cardiology Dr. Dior Chest x-ray negative Date of Service: Jan 20, 2025 Billing Provider: SADA LEWIS MD Common Visit Codes: [id number] DISCH DAY >30min SADA LEWIS MD Jan 20, 2025 11:54
--- NOTE | 2025-01-20 12:51 | DVHPN2 ---
Progress Note Date Seen: Jan 20, 2025 Medical Necessity Reason Pt with a Central, PICC or Fol: No Objective vital signs Vital Sign Date Time Temp Pulse Resp B/P (MAP) Pulse Ox O2 Delivery O2 Flow Rate FiO2 01/20/25 09:00 98.0 98 16 126/77 (93) 98 98.0 01/19/25 20:00 Room Air* 0 N/A Nasal Cannula* Total Intake and Output 01/19/25 01/19/25 01/20/25 15:00 23:00 07:00 Intake Total 750 ml 550 ml Balance 750 ml 550 ml medications Current Medications Medications Dose Ordered Sig/Missy Route Start Time Stop Time Status Last Admin Dose Admin Aspirin 81 mg DAILY PO 01/18/25 10:00 01/20/25 10:37 81 MG Atorvastatin Calcium 40 mg HS PO 01/18/25 22:00 01/19/25 21:12 40 MG Hydralazine HCl 10 mg Q6HP PRN IV 01/17/25 22:15 Famotidine 20 mg DAILY IV 01/18/25 10:00 01/20/25 10:37 20 MG Diagnostic Test (Pha) 1 strip IQ4HR 01/18/25 00:00 01/20/25 12:08 1 STRIP Insulin Human Regular IQ4HR SC 01/18/25 00:00 01/20/25 12:10 2 UNITS Dextrose 50 ml UD PRN IV 01/17/25 22:15 Sodium Chloride 1,000 ml @ 60 mls/hr [id number] IV 01/17/25 22:15 01/20/25 00:28 60 MLS/HR Acetaminophen/ Hydrocodone Bitart 1 tab Q4HP PRN PO 01/17/25 22:15 01/20/25 10:38 1 TAB Ondansetron HCl 4 mg Q4HP PRN IV 01/17/25 22:15 01/18/25 06:27 4 MG Docusate Sodium 100 mg BIDPRN PRN PO 01/17/25 22:15 Acetaminophen 650 mg Q6HP PRN PO 01/17/25 22:15 Nitroglycerin 0.4 mg Q5MINP PRN SL 01/17/25 23:30 Morphine Sulfate 2 mg Q30M PRN IV 01/17/25 23:30 Vancomycin HCl 0 ml @ 0 mls/hr UD IV 01/20/25 11:45 UNV Clindamycin Phosphate 50 ml @ 50 mls/hr Q8HR IV 01/20/25 14:00 UNV Examination: GENERAL:Abnormal, HEENT:Abnormal, LUNGS:Abnormal, CVS:Abnormal, ABDOMEN:Abnormal laboratory and microbiology Laboratory Tests 01/18/25 05:35 Test 01/18/25 05:35 Range/Units Serum Glucose 100 74-106 mg/dL Microbiology Date/Time Source Procedure Growth Status 01/19/25 19:03 Chest Gram Stain Pending Resulted 01/19/25 19:03 Chest Wound Culture - Preliminary Resulted Problem List/Assessment/Plan Problem List/Assessment/Plan cad cabg wound dehiscence plan for transfer to [place] [facility] cont abx Plan discussed with: Patient Date of Service: Jan 20, 2025 Billing Provider: FEI SAMANIEGO MD Common Visit Codes: NOT BILLABLE FEI SAMANIEGO MD Jan 20, 2025 12:51
--- NOTE | 2025-01-20 14:38 | DVH ---
Exam: CT CHEST WITHOUT CONTRAST History: Sternotomy wound rule out mediastinitis Comparison Study: None TECHNIQUE: Multidetector CT of the abdomen was performed from lung bases to pubic symphysis. Imaging was performed without IV contrast. Axial, coronal and sagittal multiplanar reformats were obtained fr om the axial data set by the technologist. Radiation Dose Information: CT Dose: CTDI volume is 17.47 mGy. Dose-length product is 644.4 mGy*cm FINDINGS: Evaluation of solid organs is limited due to lack of intravenous contrast use. Findings: Lung Bases: No acute or significant lung base finding. Normal heart size. No pleural or pericardial effusion. Liver: The liver is normal in size. No focal lesions. Gallbladder and Biliary Tree: Unremarkable Spleen: Unremarkable Pancreas: The pancreas is grossly normal in appearance. Adrenal Glands: Unremarkable Kidneys: Kidneys are grossly normal without calculi or hydronephrosis. Bladder: Grossly unremarkable for degree of distention. Bowel: The stomach is grossly normal in appearance. Small bowel and colon are normal in caliber and d istribution. The appendix is not visualized; however, no secondary findings of acute appendicitis id entified. Ascites: Absent Lymphadenopathy: No mesenteric, retroperitoneal or periportal lymphadenopathy. Abdominal Wall and Mesentery: Unremarkable. Vasculature: The visualized abdominal aorta is normal in size and caliber. Evaluation of abdominal a nd pelvic vessels is limited due to lack of intravenous contrast. Pelvic Organs: Unremarkable Musculoskeletal: Phlegmonous changes involving the sternum status post median sternotomy with possibl e fluid collection seen in the mediastinum measuring 2.4 cm. Findings concerning for underlying medi astinitis with small abscess formation. Cardiothoracic surgery evaluation is recommended. Soft tissues: Phlegmonous changes involving the sternum status post median sternotomy with possible f luid collection seen in the mediastinum measuring 2.4 cm. Findings concerning for underlying mediast initis with small abscess formation. Cardiothoracic surgery evaluation is recommended. IMPRESSION: 4 mm left lower lobe pulmonary nodule image number [id number]. Phlegmonous changes involving the sternum status post median sternotomy with possible fluid collectio n seen in the mediastinum measuring 2.4 cm. Findings concerning for underlying mediastinitis with sm all abscess formation. Cardiothoracic surgery evaluation is recommended. Radiation optimization: All CT scans at this facility use at least one of these dose optimization meagan hniques: automated exposure control mA and/or kV adjustment per patient size (includes targeted exam s where dose is matched to clinical indication) or iterative reconstruction.
[2025-01-20] MEDS: VANCOMYCIN 1.5GM/300ML 300 ML IV ONE (15:26)
[2025-01-20] MEDS: CLINDAMYCIN 300MG IV 50 ML IV SCH (16:50)
[2025-01-21 01:00] VITALS: BP_SYST 102; BP_SYST 141; BP_DIAS 59; BP_DIAS 87; PULSE 93; PULSE 96; RESP 14; TEMP 97.9; TEMP 98.3; O2SAT 95; O2SAT 97
[2025-01-21 05:00] VITALS: BP 125/83; PULSE 93; RESP 14; TEMP 97; O2SAT 97
[2025-01-21 06:36] LABS: Hematocrit 38.1 % (36.0-46.0); Hemoglobin 13.2 g/dL (12.2-16.2); Mean Corpuscular Hemoglobin 28.5 pg (28.0-32.0); Mean Corpuscular Volume 82.4 fL (80.0-100.0); Nucleated Red Blood Cells % 0.0 %
[2025-01-21 08:00] VITALS: PULSE 82; PULSE 84; RESP 14; O2SAT 98
[2025-01-21 09:00] VITALS: BP 116/73; PULSE 86; RESP 14; TEMP 97.6; O2SAT 98
--- NOTE | 2025-01-21 11:18 | DVHPN2 ---
Reviewed: Care Plan, H&P, Labs, Medications, Previous Orders, Radiology Changes from previous H/P or p: No Changes Eyes: No Pain, No Vision change, No Conjunctivae inflammation, No Eyelid inflammation, No Other, No Redness ENT: No Ear pain, No Ear discharge, No Nose pain, No Nose discharge, No Nose congestion, No Mouth pain, No Mouth swelling, No Throat pain, No Throat swelling, No Other Cardiovascular: Chest Pain; No Palpitations, No Orthopnea, No Paroxysmal Noc. Dyspnea, No Edema, No Lt Headedness; Other (Dizzy spells) Respiratory: No Cough, No Dry, No Shortness of breath, No SOB with excertion, No Wheezing, No Hemoptysis, No Pleuritic Pain, No Sputum, No Other Gastrointestinal: No Nausea, No Vomiting, No Abdominal Pain, No Diarrhea, No Constipation, No Melena, No Hematochezia, No Other Genitourinary: No Dysuria, No Frequency, No Incontinence, No Hematuria, No Retention, No Other Musculoskeletal: No other, No neck pain, No shoulder pain, No arm pain, No back pain, No hand pain, No leg pain, No foot pain Skin: No Rash, No Lesions, No Jaundice, No Bruising, No Other Objective Vitals Vital Signs Date Time Temp Pulse Resp B/P (MAP) Pulse Ox O2 Delivery O2 Flow Rate FiO2 01/21/25 09:00 97.6 86 14 116/73 (87) 98 97.6 01/21/25 08:00 Room Air* 0 N/A Nasal Cannula* Intake/Output Intake and Output 01/21/25 07:00 Intake Total 850 ml Balance 850 ml Intake Oral 850 ml # Voids 6 Medications Current Medications Medications Dose Ordered Sig/Missy Route Start Time Stop Time Status Last Admin Dose Admin Aspirin 81 mg DAILY PO 01/18/25 10:00 01/21/25 08:56 81 MG Atorvastatin Calcium 40 mg HS PO 01/18/25 22:00 01/20/25 20:22 40 MG Hydralazine HCl 10 mg Q6HP PRN IV 01/17/25 22:15 Famotidine 20 mg DAILY IV 01/18/25 10:00 01/20/25 20:15 20 MG Diagnostic Test (Pha) 1 strip IQ4HR 01/18/25 00:00 01/21/25 09:03 1 STRIP Insulin Human Regular IQ4HR SC 01/18/25 00:00 01/21/25 09:08 3 UNITS Dextrose 50 ml UD PRN IV 01/17/25 22:15 Sodium Chloride 1,000 ml @ 60 mls/hr [id number] IV 01/17/25 22:15 01/20/25 00:28 60 MLS/HR Acetaminophen/ Hydrocodone Bitart 1 tab Q4HP PRN PO 01/17/25 22:15 01/20/25 15:26 1 TAB Ondansetron HCl 4 mg Q4HP PRN IV 01/17/25 22:15 01/18/25 06:27 4 MG Docusate Sodium 100 mg BIDPRN PRN PO 01/17/25 22:15 Acetaminophen 650 mg Q6HP PRN PO 01/17/25 22:15 Nitroglycerin 0.4 mg Q5MINP PRN SL 01/17/25 23:30 Morphine Sulfate 2 mg Q30M PRN IV 01/17/25 23:30 Vancomycin HCl 0 ml @ 0 mls/hr UD IV 01/20/25 11:45 Clindamycin Phosphate 50 ml @ 50 mls/hr Q8HR IV 01/20/25 14:00 01/21/25 05:24 50 MLS/HR Vancomycin HCl 100 ml @ 100 mls/hr Q16H IV 01/21/25 10:00 Laboratory Results Laboratory Tests 01/18/25 05:35 01/21/25 05:45 Urinalysis Test 01/17/25 23:58 Urine Color Yellow (Yellow) Urine Clarity Clear (Clear) Urine pH 5.0 (5.0-9.0) Urine Specific [place] 1.027 (1.001-1.035) Urine Protein Trace (Negative) H Urine Ketones Negative (Negative) Urine Blood Negative /uL (Negative) Urine Nitrite Negative (Negative) Urine Bilirubin Negative (Negative) Urine Urobilinogen 2 mg/dL (Negative) H Urine Leukocyte Esterase 1+ /uL (Negative) Urine RBC 2 /hpf (0 - 4) Urine Microscopic WBC 9 /HPF (0-5) H Urine Squamous Epithelial Cells Few /hpf (<5) Urine Bacteria None seen /hpf (None Seen) Urine Mucus Few (None Seen) Urine Glucose 1+ mg/dL (Normal) H Microbiology Microbiology Date/Time Source Procedure Growth Status 01/19/25 19:03 Chest Gram Stain - Final Resulted 01/19/25 19:03 Chest Wound Culture - Preliminary Resulted Labs and/or images reviewed: Labs reviewed by me, Image(s) reviewed by me Assessment/Plan Assessment/Plan Median sternotomy wound complications Severe coronary artery disease status post quintuple vessel CABG (on 06/2024) at [facility] Surgical debridement of median sternotomy wound (on 08/2024) at [facility] Hypertension Dyslipidemia Asc-[id number] diabetes mellitus Obesity Acute chest pain rule out coronary artery disease: Troponin negative x3, treatment per ACS protocol, consult for Cardiology Dr. Dior Chest x-ray negative Patient is hospice revoked Patient is full code Time spent 55 minutes Cardiology recommended transfer to [facility] for possible median sternotomy wound infection, orders placed on 01-20-25 ID consult for pending Per skilled nursing case manager Amanda [facility] has no beds today Patient is willing for transfer to [facility] Pts Jose Donisria [phone] bedside and is upset that the patient is still here, wants to sign out AMA and drive herself to ER to [facility] Spent to her in detail about the transfer process which has already been initiated, but still wants to sign out AMA ROYAL Chiu at bedside Plan discussed with: Patient My Orders Orders - SADA LEWIS MD Procedure Category Date Status Time Vancomycin Per PHA 01/20/25 In Process Pharmacy 11:45 Clindamycin 300mg Iv PHA 01/20/25 In Process (Cleocin Iv) 14:00 * Infectious Albertina- CONS 01/20/25 Transmitted uJan Douglass 11:45 Discharge DISCHARGE 01/20/25 Transmitted 11:49 * Porcelain Enamel Laborer CONS 01/20/25 Transmitted Consult Vancomycin 750mg Kit PHA 01/21/25 In Process (Vancomycin Hcl) 10:00 Vancomycin,Trough LAB 01/23/25 Verified 09:00 Vancomycin Per ZARI 01/23/25 In Process Pharmacy Protoc 10:00 Creatinine LAB 01/22/25 Verified 05:00 Date of Service: Jan 21, 2025 Billing Provider: SADA LEWIS MD Common Visit Codes: [id number] INP/OBS CARE(HIGH) Secondary Visit Codes: [id number] CARE PLAN 30 MINUTES SADA LEWIS MD Jan 21, 2025 11:18
[2025-01-21] MEDS: VANCOMYCIN 750MG KIT 100 ML IV SCH (11:45)
== END 2025-01-21 11:50 | disposition short-term general hospital (02) | DRG 863 ==
LOC: ER 21:05 → OVERFLOW 23:23 → TELE-WESTW 01-18 21:07
PROVIDERS: ADMIT Family Medicine; ATTEND Family Medicine
DX: T81.40XA Infection following a procedure, unspecified, initial encounter (principal); N39.0 Urinary tract infection, site not specified; T81.30XA Disruption of wound, unspecified, initial encounter; I25.10 Atherosclerotic heart disease of native coronary artery without angina pectoris; E11.65 Type 2 diabetes mellitus with hyperglycemia; I10 Essential (primary) hypertension; E78.00 Pure hypercholesterolemia, unspecified; E66.9 Obesity, unspecified; E78.5 Hyperlipidemia, unspecified; Z79.84 Long term (current) use of oral hypoglycemic drugs; Z82.49 Family history of ischemic heart disease and other diseases of the circulatory system; Z82.5 Family history of asthma and other chronic lower respiratory diseases; Z88.0 Allergy status to penicillin; Z95.1 Presence of aortocoronary bypass graft; Z68.29 Body mass index [BMI] 29.0-29.9, adult; Y83.8 Other surgical procedures as the cause of abnormal reaction of the patient, or of later complication, without mention of misadventure at the time of the procedure; Y92.89 Other specified places as the place of occurrence of the external cause; Z79.899 Other long term (current) drug therapy
CPT/HCPCS: 36415; 71045; 71250; 80048; 80053; 80202; 81001; 82565; 82962; 83880; 84484; 85025; 87077; 87205; 93005; 96361; 96374; 99291; G0378; J1815; J2405; J3490

== ENCOUNTER 2025-02-11 12:34 | Emergency (ER) | payer OTHER, MEDICAID ==
[~2025-02-11] VITALS: Ht 152.4 cm; Wt 69.1 kg
--- NOTE | 2025-02-11 13:21 | ED.PDOC ---
History of Present Illness HPI Comments A 69 year-old female, with a HX of CAD, HTN, and DM, presents to the ED for a PICC line replacement. Patient is currently on antibiotics for an infection. Patient additionally reports fevers and chills but otherwise denies further associated symptoms of N/V/D, migraine, chest pain, dizziness, or dysuria. Chief Complaint: Tube Replacement Time Seen by MD: 13:20 Primary Care Provider: UNKNOWN Reviewed Notes: Medications, Allergies Allergies: Coded Allergies: Penicillins (Verified Allergy, Unknown, 03/17/24) Home Meds Unable to Obtain Active Prescriptions or Reported Meds Information Source: Patient Mode of Arrival: Ambulatory Severity: Moderate Duration: Since onset Prehospital treatment: None Past Medical History PAST MEDICAL HISTORY: CAD, DM, High Lipids, HTN Surgical History: CABG, Cholecystectomy, Tubal Ligation TRANSLATOR/INTERPRETER History: No Pertinent TRANSLATOR/INTERPRETER History Family History Family History: Reviewed,noncontributory to illness Social History Smoker: Non-Smoker Alcohol: Denies ETOH Use Drugs: Denies Drug Use Lives In: Home Constitutional: reports: chills, fever, others (PICC line replacement ); denies: diaphoresis, fatigue, malaise, sweats, weakness EENTM: denies: blurred vision, double vision, ear bleeding, ear discharge, ear drainage, ear pain, ear ringing, eye pain, eye redness, hearing loss, mouth pain, mouth swelling, nasal discharge, nose bleeding, nose congestion, nose pain, photophobia, tearing, throat pain, throat swelling, voice changes, others Respiratory: denies: cough, hemoptysis, orthopnea, SOB at rest, shortness of breath, SOB with excertion, stridor, wheezing, others Cardiovascular: denies: chest pain, dizzy spells, diaphoresis, Dyspnea on exertion, edema, irregular heart beat, left arm pain, lightheadedness, palpitations, PND, syncope, others Gastrointestinal: denies: abdomen distended, abdominal pain, blood streaked bowels, constipated, diarrhea, dysphagia, difficulty swallowing, hematemesis, melena, nausea, poor appetite, poor fluid intake, rectal bleeding, rectal pain, vomiting, others Genitourinary: denies: abnormal vagina bleeding, burning, dyspareunia, dysuria, flank pain, frequency, hematuria, incontinence, pain, , vagina discharge, urgency, others Neurological: denies: dizziness, fainting, headache, left sided numbness, left sided weakness, numbness, paresthesia, pre-existing deficit, right sided numbness, right sided weakness, seizure, speech problems, tingling, tremors, weakness, others Musculoskeletal: denies: back pain, gout, joint pain, joint swelling, muscle pain, muscle stiffness, neck pain, others Integumetry: denies: bruises, change in color, change in hair/nails, dryness, laceration, lesions, lumps, rash, wounds, others Allergic/Immunocompromised: denies: Difficulty Healing, Frequent Infections, Hives, Itching, others Hematologic/Lymphatic: denies: anemia, blood clots, easy bleeding, easy bruising, swollen glands, others Endocrine: denies: excessive hunger, excessive sweating, excessive thirst, excessive urination, flushing, intolerance to cold, intolerance to heat, unexplained weight gain, unexplained weight loss, others Psychiatric: denies: anxiety, bipolar disorder, depression, hopeless, panic disorder, schizophrenia, sleepless, suicidal, others All Other Systems: Reviewed and Negative Physical Exam General Appearance: No Apparent Distress, Normal HEENT: Normal ENT Inspection, Pharynx Normal, TMs Normal Neck: Full Range of Motion, Non-Tender, Normal, Normal Inspection Respiratory: Chest Non-Tender, Lungs Clear, No Accessory Muscle Use, No Respiratory Distress, Normal Breath Sounds Cardiovascular: No Edema, No JVD, No Murmur, No Gallop, Normal Peripheral Pulses, Regular Rate/Rhythm Breast Exam: Deferred Gastrointestinal: No Organomegaly, Non Tender, No Pulsatile Mass, Normal Bowel Sounds, Soft Genitalia: Deferred Pelvic: Deferred Rectal: Deferred Extremities: No calf tenderness, Normal capillary refill, Normal inspection, Normal range of motion, Non-tender, No pedal edema Musculoskeletal : Apperance: Normal Neurologic: Alert, certified histologic technician II-XII nml as Tested, No Motor Deficits, Normal Affect, Normal Mood, No Sensory Deficits Cerebellar Function: Normal Reflexes: Normal Skin: Dry, Normal Color, Warm Lymphatic: No Adenopathy Was a procedure done? Was a procedure done?: No Differential Dx Considerations may include: PICC Line Replacement X-Ray, Labs, Meds, VS Vital Signs Date Time Temp Pulse Resp B/P (MAP) Pulse Ox O2 Delivery O2 Flow Rate FiO2 02/11/25 13:18 98.3 93 16 110/75 (87) 97 98.3 Lab Test 02/11/25 14:25 Range/Units White Blood Count 7.9 4.4-10.8 10^3/uL Red Blood Count 4.50 4.0-5.20 10^6/uL Hemoglobin 13.0 12.2-16.2 g/dL Hematocrit 37.9 36.0-46.0 % Mean Corpuscular Volume 84.3 80.0-100.0 fL Mean Corpuscular Hemoglobin 28.9 28.0-32.0 pg Mean Corpuscular Hemoglobin Concent 34.3 32.0-36.0 g/dL Red Cell Distribution Width 15.1 H 11.8-14.3 % Platelet Count 294 140-450 10^3/uL Mean Platelet Volume 7.6 6.9-10.8 fL Neutrophils (%) (Auto) 64.0 37.0-80.0 % Lymphocytes (%) (Auto) 21.1 10.0-50.0 % Monocytes (%) (Auto) 7.0 0.0-12.0 % Eosinophils (%) (Auto) 6.8 0.0-7.0 % Basophils (%) (Auto) 1.1 0.0-2.0 % Neutrophils # (Auto) 5.0 1.6-8.6 10 ^3/uL Lymphocytes # (Auto) 1.7 0.4-5.4 10 ^3/uL Monocytes # (Auto) 0.5 0-1.3 10 ^3/uL Eosinophils # (Auto) 0.5 0-0.8 10 ^3/uL Basophils # (Auto) 0.1 0-0.2 10 ^3/uL Nucleated Red Blood Cells 0.1 % Prothrombin Time 10.5 9.3-11.8 sec Prothrombin Time INR 0.99 0.9-1.15 Sodium Level 142 136-145 mmol/L Potassium Level 3.9 3.5-5.1 mmol/L Chloride Level 106 98-107 mmol/L Carbon Dioxide Level 27 20-31 mmol/L Anion Gap 9 5-15 Blood Urea Nitrogen 10 9-23 mg/dL Creatinine 0.73 0.550-1.02 mg/dL Glomerular Filtration Rate Calc 89 >90 mL/min BUN/Creatinine Ratio 13.7 10.0-20.0 Serum Glucose 112 H 74-106 mg/dL Calcium Level 9.4 8.7-10.4 mg/dL Total Bilirubin 1.1 H 0.2-1.0 mg/dL Aspartate Amino Transferase (AST) 16 13-40 U/L Alanine Aminotransferase (ALT) 12 7-40 U/L Alkaline Phosphatase 79 46-116 U/L Total Protein 7.2 5.7-8.2 g/dL Albumin 4.6 3.2-4.8 g/dL X-Ray, Labs, Meds, VS Comment Patient arrives alert and oriented, ABC's intact, afebrile, vital signs stable, saturating well in room air Peripheral IV insertion+ labs were ordered. CBC was ordered to exclude anemia, blood loss, or infection. BMP was ordered to exclude electrolyte abnormalities, renal failure, dehydration, hyperglycemia Urinalysis was ordered to rule out UTI or hematuria. A Prothrombin Time was ordered. Labs in the ED were reassuring. PICC Line Consult and Replacement was ordered. Additional MDM Review of External, Non-ED records: External records reviewed. Discussion with independent historian (EMS, family) history obtained from the patient/parents (if applicable) at bedside Chronic conditions affecting care: None Social determinants of health affecting care: None Time of 1ST Reevaluation: 15:17 Reevaluation 1ST: Unchanged Patient Education/Counseling: Diagnosis, Treatment Family Education/Counseling: No Family Present SEPSIS Sepsis Screen Physician Orders PICC (02/11/25 13:22) * Picc Line Consult (02/11/25 13:24) Nursing Protocol Picc (02/11/25 15:53) Change Dressing Prn (02/11/25 15:53) Lidocaine 1% (Local Anesth.) (Xylocaine (02/11/25 16:00) Sodium Chloride Lock (Saline Lock Ns) (02/11/25 22:00) Do Not Use Picc For Blood Cult (02/11/25 15:53) May Draw Blood From Picc (02/11/25 15:53) Ok To Use Picc (02/11/25 15:53) Change Picc Dressing Q7 Days QWEEKLY (02/11/25 15:53) Vital Signs Date Time Temp Pulse Resp B/P (MAP) Pulse Ox O2 Delivery O2 Flow Rate FiO2 02/11/25 13:18 98.3 93 16 110/75 (87) 97 98.3 Laboratory Tests Test 02/11/25 14:25 White Blood Count 7.9 10^3/uL (4.4-10.8) Departure 1 Departure Time of Disposition: 16:05 Impression: Primary Impression: PIC line (peripherally inserted central catheter) removal Additional Impression: Occlusion of peripherally inserted central catheter (PICC) line Qualified Codes: T82.898A - Other specified complication of vascular prosthetic devices, implants and grafts, initial encounter Disposition: HOME / SELF CARE / HOMELESS Condition: Stable e-Prescriptions Unable to Obtain Active Prescriptions or Reported Meds Discharged With: Self Critical Care Note Critical Care Time?: No Stability Stability form required: No Heart Score Heart Score: Heart Score Response (Comments) Value History N/A 0 EKG N/A 0 Age N/A 0 Risk Factors N/A 0 Troponin N/A 0 Total 0 I personally scribed for VIKKI MONTEZ DELIVER DRIVER ([email or web address]) on 02/11/25 at 13:21. Electronically submitted by Nichole Hines ([employer]). I personally scribed for VIKKI MONTEZ DELIVER DRIVER ([email or web address]) on 02/11/25 at 13:24. Electronically submitted by Nichole Hines ([employer]). I personally scribed for VIKKI MONTEZ DELIVER DRIVER ([email or web address]) on 02/11/25 at 14:23. Electronically submitted by Nichole Hines ([employer]). I personally scribed for VIKKI MONTEZ DELIVER DRIVER ([email or web address]) on 02/11/25 at 15:33. Electronically submitted by Nichole Hines ([employer]). VIKKI MONTEZ DELIVER DRIVER Feb 11, 2025 13:21
[2025-02-11 14:38] LABS: Hematocrit 37.9 % (36.0-46.0); Hemoglobin 13.0 g/dL (12.2-16.2); Mean Corpuscular Hemoglobin 28.9 pg (28.0-32.0); Mean Corpuscular Volume 84.3 fL (80.0-100.0); Nucleated Red Blood Cells % 0.1 %
[2025-02-11 14:54] LABS: Alanine Aminotransferase 12 U/L (7-40); Albumin 4.6 g/dL (3.2-4.8); Alkaline Phosphatase 79 U/L (46-116); Anion Gap 9 (5-15); BUN/Creatinine Ratio 13.7 (10.0-20.0); Bilirubin, Total 1.1 mg/dL (0.2-1.0); Blood Urea Nitrogen 10 mg/dL (9-23); Calcium 9.4 mg/dL (8.7-10.4); Carbon Dioxide 27 mmol/L (20-31); Chloride 106 mmol/L (98-107); Glucose 112 mg/dL (74-106); INR 0.99 (0.9-1.15); Potassium 3.9 mmol/L (3.5-5.1); Prothrombin Time 10.5 sec (9.3-11.8); Sodium 142 mmol/L (136-145); Total Protein 7.2 g/dL (5.7-8.2)
[2025-02-11 16:15] VITALS: BP 118/85; PULSE 86; RESP 15; TEMP 97.7; O2SAT 99
[2025-02-11] MEDS: LIDOCAINE 1% (LOCAL ANESTH.) PF 5ml SDV ID ONE (16:15)
[2025-02-11] MEDS ORDERED: SODIUM CHLOR 0.9% PF (SALINE LOCK) 10ML VIAL/SYR IV SCH (22:00)
== END 2025-02-11 16:37 | disposition home or self-care (01) ==
LOC: ER 12:34
DX: T82.898A Other specified complication of vascular prosthetic devices, implants and grafts, initial encounter (principal); E11.9 Type 2 diabetes mellitus without complications; I10 Essential (primary) hypertension; E78.5 Hyperlipidemia, unspecified; I25.10 Atherosclerotic heart disease of native coronary artery without angina pectoris; Z45.2 Encounter for adjustment and management of vascular access device; Z98.51 Tubal ligation status; Z95.1 Presence of aortocoronary bypass graft; Z90.49 Acquired absence of other specified parts of digestive tract; Z88.0 Allergy status to penicillin; Y69 Unspecified misadventure during surgical and medical care; Y92.9 Unspecified place or not applicable
CPT/HCPCS: 36415; 36569; 76937; 80053; 85025; 85610; 99285; C1751; J7050

== ENCOUNTER 2025-03-21 20:59 | Emergency (ER) | payer OTHER, MEDICAID ==
[~2025-03-21] VITALS: Ht 152.4 cm; Wt 64.5 kg
--- NOTE | 2025-03-21 21:57 | ED.PDOC ---
History of Present Illness HPI Comments 70-year-old female who came to ER for dizziness. History of hypertension, diabetes, coronary artery disease, status post CABG. States she has been having episodes of dizziness for over a month, described as spinning sensation in associated nausea. Worsening of dizziness today prompted patient to come to the ER Chief Complaint: Dizziness Time Seen by MD: 21:57 Primary Care Provider: UNKNOWN Reviewed Notes: Nurses Notes Allergies: Coded Allergies: Penicillins (Verified Allergy, Unknown, 03/17/24) Home Meds Active Scripts Meclizine HCl (Meclizine) 25 Mg Chw, 25 MG PO Q6HP PRN, #30 CHW Prov:DOLORES FISHMAN MD 03/21/25 Information Source: Patient Mode of Arrival: Ambulatory Severity: Moderate Timing: Days Duration: Intermittent Past Medical History PAST MEDICAL HISTORY: CAD, DM, High Lipids, HTN Surgical History: CABG, Cholecystectomy, Tubal Ligation CEPHALOMETRIC TRACER History: No Pertinent CEPHALOMETRIC TRACER History Family History Family History: Reviewed,noncontributory to illness Social History Smoker: Non-Smoker Alcohol: Denies ETOH Use Drugs: Denies Drug Use Lives In: Home Constitutional: denies: chills, diaphoresis, fatigue, fever, malaise, sweats, weakness, others EENTM: denies: blurred vision, double vision, ear bleeding, ear discharge, ear drainage, ear pain, ear ringing, eye pain, eye redness, hearing loss, mouth pain, mouth swelling, nasal discharge, nose bleeding, nose congestion, nose pain, photophobia, tearing, throat pain, throat swelling, voice changes, others Respiratory: denies: cough, hemoptysis, orthopnea, SOB at rest, shortness of breath, SOB with excertion, stridor, wheezing, others Cardiovascular: denies: chest pain, dizzy spells, diaphoresis, Dyspnea on exertion, edema, irregular heart beat, left arm pain, lightheadedness, palpitations, PND, syncope, others Gastrointestinal: denies: abdomen distended, abdominal pain, blood streaked bowels, constipated, diarrhea, dysphagia, difficulty swallowing, hematemesis, melena, nausea, poor appetite, poor fluid intake, rectal bleeding, rectal pain, vomiting, others Genitourinary: denies: abnormal vagina bleeding, burning, dyspareunia, dysuria, flank pain, frequency, hematuria, incontinence, pain, , vagina discharge, urgency, others Neurological: reports: dizziness; denies: fainting, headache, left sided numbness, left sided weakness, numbness, paresthesia, pre-existing deficit, right sided numbness, right sided weakness, seizure, speech problems, tingling, tremors, weakness, others Musculoskeletal: denies: back pain, gout, joint pain, joint swelling, muscle pain, muscle stiffness, neck pain, others Integumetry: denies: bruises, change in color, change in hair/nails, dryness, laceration, lesions, lumps, rash, wounds, others Allergic/Immunocompromised: denies: Difficulty Healing, Frequent Infections, Hives, Itching, others Hematologic/Lymphatic: denies: anemia, blood clots, easy bleeding, easy bruising, swollen glands, others Endocrine: denies: excessive hunger, excessive sweating, excessive thirst, excessive urination, flushing, intolerance to cold, intolerance to heat, unexplained weight gain, unexplained weight loss, others Psychiatric: denies: anxiety, bipolar disorder, depression, hopeless, panic disorder, schizophrenia, sleepless, suicidal, others Physical Exam General Appearance: No Apparent Distress, Normal HEENT: Normal ENT Inspection, Pharynx Normal, TMs Normal Neck: Full Range of Motion, Non-Tender, Normal, Normal Inspection Respiratory: Chest Non-Tender, Lungs Clear, No Accessory Muscle Use, No Respiratory Distress, Normal Breath Sounds Cardiovascular: No Edema, No JVD, No Murmur, No Gallop, Normal Peripheral Pulse s, Regular Rate/Rhythm Breast Exam: Deferred Gastrointestinal: No Organomegaly, Non Tender, No Pulsatile Mass, Normal Bowel Sounds, Soft Genitalia: Deferred Pelvic: Deferred Rectal: Deferred Extremities: No calf tenderness, Normal capillary refill, Normal inspection, Normal range of motion, Non-tender, No pedal edema Musculoskeletal : Apperance: Normal Neurologic: Alert, flooring helper II-XII nml as Tested, No Motor Deficits, Normal Affect, Normal Mood, No Sensory Deficits Cerebellar Function: Normal Reflexes: Normal Skin: Dry, Normal Color, Warm Lymphatic: No Adenopathy Was a procedure done? Was a procedure done?: No Differential Dx Considerations may include: Differential diagnosis includes but not limited to: Dehydration, sepsis, and infectious process, electrolyte abnormality and others X-Ray, Labs, Meds, VS Vital Signs Date Time Temp Pulse Resp B/P (MAP) Pulse Ox O2 Delivery O2 Flow Rate FiO2 03/22/25 01:15 97.9 91 18 113/75 (88) 99 97.9 03/21/25 21:04 97.7 106 18 117/80 97 97.7 Lab Test 03/21/25 22:40 03/21/25 21:50 Range/Units Troponin I High Sensitivity 7 7 </=34 ng/L White Blood Count 6.8 4.4-10.8 10^3/uL Red Blood Count 4.46 4.0-5.20 10^6/uL Hemoglobin 12.8 12.2-16.2 g/dL Hematocrit 37.3 36.0-46.0 % Mean Corpuscular Volume 83.5 80.0-100.0 fL Mean Corpuscular Hemoglobin 28.8 28.0-32.0 pg Mean Corpuscular Hemoglobin Concent 34.5 32.0-36.0 g/dL Red Cell Distribution Width 14.5 H 11.8-14.3 % Platelet Count 385 140-450 10^3/uL Mean Platelet Volume 7.7 6.9-10.8 fL Neutrophils (%) (Auto) 57.7 37.0-80.0 % Lymphocytes (%) (Auto) 31.8 10.0-50.0 % Monocytes (%) (Auto) 7.3 0.0-12.0 % Eosinophils (%) (Auto) 2.1 0.0-7.0 % Basophils (%) (Auto) 1.1 0.0-2.0 % Neutrophils # (Auto) 3.9 1.6-8.6 10 ^3/uL Lymphocytes # (Auto) 2.1 0.4-5.4 10 ^3/uL Monocytes # (Auto) 0.5 0-1.3 10 ^3/uL Eosinophils # (Auto) 0.1 0-0.8 10 ^3/uL Basophils # (Auto) 0.1 0-0.2 10 ^3/uL Nucleated Red Blood Cells 0.0 % Sodium Level 135 L 136-145 mmol/L Potassium Level 3.9 3.5-5.1 mmol/L Chloride Level 102 98-107 mmol/L Carbon Dioxide Level 25 20-31 mmol/L Anion Gap 8 5-15 Blood Urea Nitrogen 18 9-23 mg/dL Creatinine 0.93 0.550-1.02 mg/dL Glomerular Filtration Rate Calc 66 >90 mL/min BUN/Creatinine Ratio 19.4 10.0-20.0 Serum Glucose 205 H 74-106 mg/dL Calcium Level 9.5 8.7-10.4 mg/dL Magnesium Level 2.0 1.6-2.6 mg/dL Total Bilirubin 0.4 0.2-1.0 mg/dL Aspartate Amino Transferase (AST) 11 L 13-40 U/L Alanine Aminotransferase (ALT) < 9 7-40 U/L Alkaline Phosphatase 87 46-116 U/L B-Type Natriuretic Peptide 81.69 0-100 pg/mL Total Protein 8.0 5.7-8.2 g/dL Albumin 4.3 3.2-4.8 g/dL Current Medications Medications (Trade) Dose Ordered Sig/Missy Route Start Time Stop Time Status Last Admin Ondansetron HCl (Zofran Po) 4 mg ONCE ONCE PO 03/21/25 21:45 03/21/25 21:46 DC 03/22/25 01:25 Meclizine HCl (Antivert Tablet) 25 mg ONCE ONCE PO 03/21/25 21:45 03/21/25 21:46 DC 03/22/25 01:25 Time of 1ST Reevaluation: 21:55 Reevaluation 1ST: Unchanged Patient Education/Counseling: Diagnosis, Treatment Family Education/Counseling: No Family Present SEPSIS Sepsis Screen Date sepsis recognized/suspect: Mar 21, 2025 Time Sepsis recognized/suspect: 2107 Recent Procedure: Yes (OPEN HEART IN JUN 2024 REOPENED DUE TO INFECTION 03/16) On Antibiotic Therapy: No Respiratory Rate >20: No Heart Rate >90: Yes Temp<36 C (96.8 F) or >38.3 C: No SBP <90 or MAP <65 mmHG: No New Acute Mental Status Change: No Is the patient on CPAP, BIPAP,: No Physician Orders Electrocardigram (03/21/25 21:39) Head Without Contrast (03/21/25 21:39) Vital Signs Date Time Temp Pulse Resp B/P (MAP) Pulse Ox O2 Delivery O2 Flow Rate FiO2 03/22/25 01:15 97.9 91 18 113/75 (88) 99 97.9 03/21/25 21:04 97.7 106 18 117/80 97 97.7 Laboratory Tests Test 03/21/25 21:50 White Blood Count 6.8 10^3/uL (4.4-10.8) Medications Medications Dose Ordered Sig/Missy Route Start Time Stop Time Status Last Admin Dose Admin Meclizine HCl 25 mg ONCE ONCE PO 03/21/25 21:45 03/21/25 21:46 DC 03/22/25 01:25 Ondansetron HCl 4 mg ONCE ONCE PO 03/21/25 21:45 03/21/25 21:46 DC 03/22/25 01:25 Departure 1 Departure Time of Disposition: 23:50 Impression: Primary Impression: Dizziness Additional Impression: Diabetes mellitus with hyperglycemia Disposition: HOME / SELF CARE / HOMELESS Condition: Stable e-Prescriptions Meclizine HCl (Meclizine) 25 Mg Chw 25 MG PO Q6HP PRN, #30 CHW Prov: DOLORES FISHMAN MD 03/21/25 Discharged With: Self Critical Care Note Critical Care Time?: No Stability Stability form required: No Heart Score Heart Score: Heart Score Response (Comments) Value History N/A 0 EKG N/A 0 Age N/A 0 Risk Factors N/A 0 Troponin N/A 0 Total 0 I personally scribed for DOLORES FISHMAN MD ([email or web address]) on 03/21/25 at 21:57. Electronically submitted by Ankur Mirza ([email or web address]). DOLORES FISHMAN MD Mar 21, 2025 21:57
[2025-03-21 22:16] LABS: Hematocrit 37.3 % (36.0-46.0); Hemoglobin 12.8 g/dL (12.2-16.2); Mean Corpuscular Hemoglobin 28.8 pg (28.0-32.0); Mean Corpuscular Volume 83.5 fL (80.0-100.0); Nucleated Red Blood Cells % 0.0 %
[2025-03-21 22:24] LABS: Albumin 4.3 g/dL (3.2-4.8); Alkaline Phosphatase 87 U/L (46-116); Anion Gap 8 (5-15); BUN/Creatinine Ratio 19.4 (10.0-20.0); Blood Urea Nitrogen 18 mg/dL (9-23); Calcium 9.5 mg/dL (8.7-10.4); Carbon Dioxide 25 mmol/L (20-31); Chloride 102 mmol/L (98-107); Magnesium 2.0 mg/dL (1.6-2.6); Potassium 3.9 mmol/L (3.5-5.1); Total Protein 8.0 g/dL (5.7-8.2)
[2025-03-21 22:25] LABS: Alanine Aminotransferase < 9 U/L (7-40); Bilirubin, Total 0.4 mg/dL (0.2-1.0); Glucose 205 mg/dL (74-106); Sodium 135 mmol/L (136-145)
--- NOTE | 2025-03-21 23:02 | DVH ---
CT HEAD WITHOUT CONTRAST INDICATION: vertigo COMPARISON: CT HEAD WITHOUT CONTRAST on DOS: 01/02/25 TECHNIQUE: CT of the head without intravenous contrast. RADIATION DOSE: CTDIvol: 51.11 mGy, DLP: 51.11 mGy*cm FINDINGS: No evidence of intracranial hemorrhage, infarct, extra-axial collection, mass effect, midline shift or herniation. Ventricles, sulci and cisterns are normal with no hydrocephalus. Guzman-white differenti ation is preserved. Considerable chronic mucosal thickening in right maxillary sinus and to lesser extent in left maxilla ry sinus. Otherwise unremarkable. Mastoid air cells and middle ear cavities are clear. Orbits appear unremarkable. Soft tissues and osseous structures are unremarkable. IMPRESSION: No intracranial abnormality identified. No appreciable change compared to the prior CT scan from December 2024.
[2025-03-21] MEDS ORDERED: MECL25CH38 PO (23:57)
[2025-03-22 01:15] VITALS: BP 113/75; PULSE 91; RESP 18; TEMP 97.9; O2SAT 99
[2025-03-22] MEDS: MECLIZINE HCL 25 MG TAB PO ONE (01:25)
[2025-03-22] MEDS: ONDANSETRON ODT 4 MG TAB PO ONE (01:25)
== END 2025-03-22 02:21 | disposition home or self-care (01) ==
LOC: ER 20:59
DX: R42 Dizziness and giddiness (principal); R06.02 Shortness of breath; E11.65 Type 2 diabetes mellitus with hyperglycemia; I10 Essential (primary) hypertension; E78.5 Hyperlipidemia, unspecified; I25.10 Atherosclerotic heart disease of native coronary artery without angina pectoris; Z79.899 Other long term (current) drug therapy; Z98.51 Tubal ligation status; Z95.1 Presence of aortocoronary bypass graft; Z90.49 Acquired absence of other specified parts of digestive tract; Z88.0 Allergy status to penicillin
CPT/HCPCS: 36415; 70450; 80053; 83735; 83880; 84484; 85025; 99284; J8597; Q0162

== ENCOUNTER 2025-06-03 12:38 | Emergency (ER) | payer BC, MEDICAID ==
[~2025-06-03] VITALS: Ht 152.4 cm; Wt 68.0 kg
[~2025-06-03 12:38] MED LIST changes: -MECL-90 PO; +MECL25CH38 PO
[2025-06-03 13:20] VITALS: BP 130/83; PULSE 96; RESP 15; TEMP 97.9; O2SAT 98
--- NOTE | 2025-06-03 13:23 | ED.PDOC ---
History of Present Illness HPI Comments A 70 YEAR OLD FEMALE PRESENTS TO THE ED WITH COMPLAINT OF TUBE REPLACEMENT. PT HAS PICC LINE PLACED FOR IV ANTIBIOTICS ON L FOREARM FOR INFECTION. PT STATES SHE WAS SUPPOSED TO HAVE PICC LINE REMOVED May BUT STATES SHE NEEDED AUTHORIZATION AND CAME TODAY. PATIENT DENIES FEVER, CHILLS, SHORTNESS OF LARA TH, CHEST PAIN, ABDOMINAL PAIN, NAUSEA, VOMITING, HEADACHE, OR OTHER COMPLAINTS. NO OTHER SYMPTOMS OR MODIFYING FACTORS AT THIS TIME. PATIENT IS ALERT, ORIENTED X 4, AND HAS STEADY GAIT. Chief Complaint: Tube Replacement Time Seen by MD: 13:21 Primary Care Provider: UNKNOWN Reviewed Notes: Nurses Notes, Medications, Allergies Allergies: Coded Allergies: Penicillins (Verified Allergy, Unknown, 03/17/24) Home Meds Active Scripts Meclizine HCl (Meclizine) 25 Mg Chw, 25 MG PO Q6HP PRN, #30 CHW Prov:DOLORES FISHMAN MD 03/21/25 Information Source: Patient Mode of Arrival: Ambulatory Severity: Mild Timing: Days Duration: Since onset, Days Prehospital treatment: None Medication Refill: For: Other (PICC LINE REMOVAL ) Past Medical History PAST MEDICAL HISTORY: CAD, DM, High Lipids, HTN Surgical History: CABG, Cholecystectomy, Tubal Ligation MANAGER PHARMACY History: No Pertinent MANAGER PHARMACY History Family History Family History: Reviewed,noncontributory to illness Social History Smoker: Non-Smoker Alcohol: Denies ETOH Use Drugs: Denies Drug Use Lives In: Home Constitutional: denies: chills, diaphoresis, fatigue, fever, malaise, sweats, weakness, others EENTM: denies: blurred vision, double vision, ear bleeding, ear discharge, ear drainage, ear pain, ear ringing, eye pain, eye redness, hearing loss, mouth pain, mouth swelling, nasal discharge, nose bleeding, nose congestion, nose pain, photophobia, tearing, throat pain, throat swelling, voice changes, others Respiratory: denies: cough, hemoptysis, orthopnea, SOB at rest, shortness of breath, SOB with excertion, stridor, wheezing, others Cardiovascular: denies: chest pain, dizzy spells, diaphoresis, Dyspnea on exertion, edema, irregular heart beat, left arm pain, lightheadedness, palpitations, PND, syncope, others Gastrointestinal: denies: abdomen distended, abdominal pain, blood streaked bowels, constipated, diarrhea, dysphagia, difficulty swallowing, hematemesis, melena, nausea, poor appetite, poor fluid intake, rectal bleeding, rectal pain, vomiting, others Genitourinary: denies: abnormal vagina bleeding, burning, dyspareunia, dysuria, flank pain, frequency, hematuria, incontinence, pain, , vagina discharge, urgency, others Neurological: denies: dizziness, fainting, headache, left sided numbness, left sided weakness, numbness, paresthesia, pre-existing deficit, right sided numbness, right sided weakness, seizure, speech problems, tingling, tremors, weakness, others Musculoskeletal: denies: back pain, gout, joint pain, joint swelling, muscle pain, muscle stiffness, neck pain, others Integumetry: reports: others (PICC LINE ON LEFT ARM ); denies: bruises, change in color, change in hair/nails, dryness, laceration, lesions, lumps, rash, wounds Allergic/Immunocompromised: denies: Difficulty Healing, Frequent Infections, Hives, Itching, others Hematologic/Lymphatic: denies: anemia, blood clots, easy bleeding, easy bruising, swollen glands, others Endocrine: denies: excessive hunger, excessive sweating, excessive thirst, excessive urination, flushing, intolerance to cold, intolerance to heat, unexplained weight gain, unexplained weight loss, others Psychiatric: denies: anxiety, bipolar disorder, depression, hopeless, panic disorder, schizophrenia, sleepless, suicidal, others All Other Systems: Reviewed and Negative Physical Exam General Appearance: No Apparent Distress, Normal HEENT: Normal ENT Inspection, PERRL/EOMI, Pharynx Normal, TMs Normal Neck: Full Range of Motion, Non-Tender, Normal, Normal Inspection Respiratory: Chest Non-Tender, Lungs Clear, No Accessory Muscle Use, No Respiratory Distress, Normal Breath Sounds Cardiovascular: No Edema, No JVD, No Murmur, No Gallop, Normal Peripheral Pulses, Regular Rate/Rhythm Breast Exam: Deferred Gastrointestinal: No Organomegaly, Non Tender, No Pulsatile Mass, Normal Bowel Sounds, Soft Genitalia: Deferred Pelvic: Deferred Rectal: Deferred Extremities: No calf tenderness, Normal capillary refill, Normal inspection, Normal range of motion, Non-tender, No pedal edema Musculoskeletal : Apperance: Normal Neurologic: Alert, stand up comedian II-XII nml as Tested, No Motor Deficits, Normal Affect, Normal Mood, No Sensory Deficits Cerebellar Function: Normal Reflexes: Normal Skin: Dry, Normal Color, Warm, Other (PICC LINE ON LEFT ARM INTACT, NO SKIN REDNESS AND SWELLING. ) Peripheral Pulses: 2+ carotid (R), 2+ carotid (L) Lymphatic: No Adenopathy Was a procedure done? Was a procedure done?: No Differential Dx Considerations may include: PIC LINE REMOVAL, CELLULITES, X-Ray, Labs, Meds, VS Vital Signs Date Time Temp Pulse Resp B/P (MAP) Pulse Ox O2 Delivery O2 Flow Rate FiO2 06/03/25 13:20 97.9 96 15 130/83 (99) 98 97.9 06/03/25 13:20 96 15 98 Room Air 06/03/25 12:39 97.9 96 15 130/83 98 97.9 X-Ray, Labs, Meds, VS Comment COURSE: EXTERNAL MEDICAL RECORDS REVIEWED: [NONE] INDEPENDENT HISTORIANS: [NONE] SOCIAL DETERMINANTS OF HEALTH: [NONE] LABS ORDERED: NONE REVIEWED AND INTERPRETED RESULTS: NONE IMAGING ORDERED: NONE TREATMENTS ORDERED: NONE PROCEDURES PERFORMED: NONE CRITICAL CARE TIME: NONE I HAVE DISCUSSED THE PATIENT WITH THE ATTENDING PHYSICIAN DR. GIORDANO AND HE AGREES WITH THE PATIENT'S PLAN OF CARE AND DISPOSITION. BASED ON HISTORY OF PRESENT ILLNESS, AND PHYSICAL EXAM, PATIENT WILL BE DISCHARGED HOME. SHARED DECISION MAKING: DISCUSSED WITH PATIENT THAT THEIR WORKUP WAS NORMAL. PATIENT INSTRUCTED TO FOLLOW UP WITH PRIMARY CARE PROVIDER IN 1-2 DAYS FOR RE- EVALUATION OF SYMPTOMS. PATIENT VERBALIZES UNDERSTANDING TO RETURN TO ED FOR NEW OR WORSENING SYMPTOMS OR IF FOLLOW UP WITH PCP CANNOT BE OBTAINED. PATIENT FEELS COMFORTABLE GOING HOME AT THIS TIME. ALL QUESTIONS ADDRESSED AT TIME OF DISCHARGE. Time of 1ST Reevaluation: 13:35 Reevaluation 1ST: Improved Patient Education/Counseling: Diagnosis, Treatment Family Education/Counseling: No Family Present SEPSIS Sepsis Screen Date sepsis recognized/suspect: Jun 03, 2025 Time Sepsis recognized/suspect: 1241 Recent Procedure: No On Antibiotic Therapy: No Respiratory Rate >20: No Heart Rate >90: No Temp<36 C (96.8 F) or >38.3 C: No SBP <90 or MAP <65 mmHG: No New Acute Mental Status Change: No Is the patient on CPAP, BIPAP,: No Vital Signs Date Time Temp Pulse Resp B/P (MAP) Pulse Ox O2 Delivery O2 Flow Rate FiO2 06/03/25 13:20 97.9 96 15 130/83 (99) 98 97.9 06/03/25 13:20 96 15 98 Room Air 06/03/25 12:39 97.9 96 15 130/83 98 97.9 Departure 1 Departure Time of Disposition: 13:35 Impression: Primary Impression: PIC line (peripherally inserted central catheter) removal Disposition: HOME / SELF CARE / HOMELESS Condition: Stable Additional Instructions: INSTRUCTIONS: FOLLOW-UP WITH PCP IN 1 TO 2 DAYS. TAKE MEDICATIONS PRESCRIBED. RETURN TO ED FOR ANY NEW OR WORSENING SYMPTOMS. Discharged With: Self, Relative Critical Care Note Critical Care Time?: No Stability Stability form required: No Heart Score Heart Score: Heart Score Response (Comments) Value History N/A 0 EKG N/A 0 Age N/A 0 Risk Factors N/A 0 Troponin N/A 0 Total 0 I personally scribed for MARIA L HOYT ([email or web address]) on 06/03/25 at 13:23. Electronically submitted by Ras Gomez ([email or web address]). MARIA L HOYT Jun 03, 2025 13:23
== END 2025-06-03 13:20 | disposition home or self-care (01) ==
LOC: ER 12:38
DX: Z45.2 Encounter for adjustment and management of vascular access device (principal); Z98.51 Tubal ligation status; Z90.49 Acquired absence of other specified parts of digestive tract; Z88.0 Allergy status to penicillin